=== PATIENT | female | born 1945 | race Caucasian/White ===

== ENCOUNTER 2016-08-08 20:20 | Emergency (ER) | payer MEDICARE, OTHER ==
[~2016-08-08] VITALS: Ht 165.1 cm; Wt 81.8 kg
[~2016-08-08 20:20] MED LIST: ACET-784 PO; ENOX30DI5 SQ; GABA-531 PO; MOM30 PO; PANT40TA25 PO; PERCT PO; QUET300T2 PO; TRAZ150 PO
[2016-08-08] MEDS ORDERED: RIVA20TA PO (20:41)
[2016-08-08] MEDS ORDERED: BENZOTROPINE PO (20:41)
[2016-08-08] MEDS ORDERED: PROP10 PO (20:41)
[2016-08-08 21:39] LABS: BASOPHILS # (AUTO) 0.05 K/uL (0.00-0.20); BASOPHILS % (AUTO) 0.8 % (0.0-2.0); EOSINOPHILS # (AUTO) 0.14 K/uL (0.00-0.70); EOSINOPHILS % (AUTO) 2.04 % (1.0-6.0); HEMATOCRIT 41.5 % (36-46); HEMOGLOBIN 13.4 g/dL (12.0-16.0); LYMPHOCYTES % (AUTO) 29.7 % (22.0-44.0); MEAN CORPUSCULAR HEMOGLOBIN 31.1 pg (26.0-34.0); MEAN CORPUSCULAR HGB CONC 32.4 G/dL (31.0-37.0); MEAN CORPUSCULAR VOLUME 96 fL (80-100); MONOCYTES # (AUTO) 0.4 K/uL (0.1-1.0); MONOCYTES % (AUTO) 5.4 % (2.0-9.0); NEUTROPHILS # (AUTO) 4.2 K/uL (1.8-7.7); PLATELET COUNT (AUTO) 253 K/uL (150-450); RED BLOOD CELL COUNT(AUTO) 4.32 MIL/uL (4.00-5.20); RED CELL DISTRIBUTION WIDTH 15.5 % (11.5-14.5); WHITE BLOOD COUNT (AUTO) 6.8 K/uL (4.5-11.0)
[2016-08-08 21:50] LABS: CALCIUM, TOTAL 9.3 mg/dL (8.8-10.5); CREATININE 1.01 mg/dL (0.60-1.30); POTASSIUM 3.8 mmol/L (3.5-5.1)
[2016-08-08 21:55] LABS: ALBUMIN 4.2 g/dL (3.4-5.0); BILIRUBIN,TOTAL 0.4 mg/dL (0.1-1.0); TOTAL PROTEIN, SERUM 7.4 g/dL (6.4-8.2)
[2016-08-08 21:57] LABS: INR 1.5 (0.9-1.1); PROTHROMBIN TIME 16.1 SEC (9.4-11.6)
[2016-08-08] MEDS ORDERED: ONDANSETRON HCL 4 MG/2 ML VIAL IVP ONE (22:15)
[2016-08-08] MEDS ORDERED: MORPHINE SULFATE 4 MG/ML SYRINGE IVP ONE (22:15)
[2016-08-08 22:42] LABS: ADD UA MICROSCOPIC YES; APPEARANCE,URINE CLOUDY (CLEAR); GLUCOSE, URINE (UA) NEGATIVE (NEGATIVE); KETONES,URINE TRACE mg/dL (NEGATIVE); LEUKOCYTE ESTERASE ,URINE MODERATE (NEGATIVE); OCCULT BLOOD,URINE SMALL (NEGATIVE); PROTEIN,URINE NEGATIVE (NEGATIVE)
[2016-08-08 22:52] LABS: SQUAMOUS EPITHELIAL CELL,UR Few /LPF (None Seen); WBC,URINE 26-50 /HPF (0-5)
[2016-08-09] MEDS ORDERED: CIPROFLOXACIN HCL 250 MG TABLET PO ONE (01:00)
[2016-08-09] MEDS ORDERED: OxyCODONE HCL/ACETAMINOPHEN 5-325 MG TABLET PO ONE (01:00)
[2016-08-09] MEDS ORDERED: CefTRIAXone 1 GM/DEXTROSE 50 ML IV ONE (01:00)
[2016-08-09 01:20] VITALS: BP 134/59
== END 2016-08-09 01:22 | disposition home or self-care (01) ==
LOC: EMS 20:23
DX: N39.0 Urinary tract infection, site not specified (principal); K80.50 Calculus of bile duct without cholangitis or cholecystitis without obstruction; G89.29 Other chronic pain; I10 Essential (primary) hypertension; K21.9 Gastro-esophageal reflux disease without esophagitis; F15.90 Other stimulant use, unspecified, uncomplicated; F19.90 Other psychoactive substance use, unspecified, uncomplicated
CPT/HCPCS: 36415; 76700; 80053; 81001; 83690; 84484; 85025; 85610; 85730; 87077; 87086; 93005; 96365; 96375; 99285; J0696; J2270; J2405

== ENCOUNTER 2016-08-31 13:34 | Emergency (ER) | payer MEDICARE, OTHER ==
[~2016-08-31] VITALS: Ht 167.6 cm; Wt 76.4 kg
[~2016-08-31 13:34] MED LIST changes: +BENZOTROPINE PO; +PROP10 PO; +RIVA20TA PO
[2016-08-31 15:06] LABS: BASOPHILS % (AUTO) 1.5 % (0.0-2.0); EOSINOPHILS % (AUTO) 1.7 % (1.0-6.0); HEMATOCRIT 40.7 % (36-46); HEMOGLOBIN 13.1 g/dL (12.0-16.0); LYMPHOCYTES # (AUTO) 1.9 K/uL (1.0-4.8); LYMPHOCYTES % (AUTO) 25.1 % (22.0-44.0); MEAN CORPUSCULAR HEMOGLOBIN 30.6 pg (26.0-34.0); MEAN CORPUSCULAR HGB CONC 32.1 G/dL (31.0-37.0); MEAN CORPUSCULAR VOLUME 95 fL (80-100); MONOCYTES # (AUTO) 0.6 K/uL (0.1-1.0); MONOCYTES % (AUTO) 7.7 % (2.0-9.0); NEUTROPHILS # (AUTO) 4.9 K/uL (1.8-7.7); PLATELET COUNT (AUTO) 242 K/uL (150-450); RED BLOOD CELL COUNT(AUTO) 4.26 MIL/uL (4.00-5.20); RED CELL DISTRIBUTION WIDTH 14.1 % (11.5-14.5); WHITE BLOOD COUNT (AUTO) 7.6 K/uL (4.5-11.0)
[2016-08-31 15:17] LABS: ANION GAP 8 mmol/L (8-16); CALCIUM, TOTAL 9.1 mg/dL (8.8-10.5); CARBON DIOXIDE 30 mmol/L (22-29); CHLORIDE 102 mmol/L (98-107); CREATININE 1.04 mg/dL (0.60-1.30); GLOMERULAR FILTR. RATE CALC 53 mL/min (>60); POTASSIUM 3.6 mmol/L (3.5-5.1); SODIUM SERUM 140 mmol/L (136-145); UREA NITROGEN, BLOOD 18 mg/dL (7-18)
[2016-08-31 15:20] LABS: ALANINE AMINOTRANSFERASE 27 U/L (12-78); ALBUMIN 4.1 g/dL (3.4-5.0); ASPARTATE AMINOTRANSFERASE 61 U/L (15-37); BILIRUBIN,TOTAL 0.3 mg/dL (0.1-1.0); TOTAL PROTEIN, SERUM 7.3 g/dL (6.4-8.2)
[2016-08-31] MEDS ORDERED: GABA-529 PO (15:44)
[2016-08-31] MEDS ORDERED: BENZ1TAB10 PO (15:44)
[2016-08-31] MEDS ORDERED: TraMADol HCL 50 MG TABLET PO ONE (15:45)
[2016-08-31 16:24] VITALS: BP 135/73
== END 2016-08-31 16:25 | disposition home or self-care (01) ==
LOC: EMS 13:37
DX: F41.9 Anxiety disorder, unspecified (principal); G89.29 Other chronic pain; F31.9 Bipolar disorder, unspecified; K21.9 Gastro-esophageal reflux disease without esophagitis; I10 Essential (primary) hypertension; F15.90 Other stimulant use, unspecified, uncomplicated; F19.90 Other psychoactive substance use, unspecified, uncomplicated
CPT/HCPCS: 36415; 80053; 85025; 99284; G0480

== ENCOUNTER 2016-09-18 06:11 | Emergency (ER) | payer MEDICARE, OTHER ==
[~2016-09-18] VITALS: Ht 172.7 cm; Wt 72.7 kg
[~2016-09-18 06:11] MED LIST changes: +BENZ1TAB10 PO; -BENZOTROPINE PO; +GABA-529 PO; -GABA-531 PO
[2016-09-18] MEDS ORDERED: IBUPROFEN 600 MG TABLET PO ONE (06:45)
[2016-09-18] MEDS ORDERED: HydrOXYzine PAMOATE 50 MG CAPSULE PO ONE (06:45)
[2016-09-18] MEDS ORDERED: LOPERAMIDE HCL 2 MG CAPSULE PO ONE (07:00)
[2016-09-18 07:01] VITALS: BP 155/85
== END 2016-09-18 07:05 | disposition home or self-care (01) ==
LOC: EMS 06:13
DX: M25.551 Pain in right hip (principal); G89.29 Other chronic pain; F41.9 Anxiety disorder, unspecified; G47.00 Insomnia, unspecified; R19.7 Diarrhea, unspecified; F31.9 Bipolar disorder, unspecified; K21.9 Gastro-esophageal reflux disease without esophagitis; F13.90 Sedative, hypnotic, or anxiolytic use, unspecified, uncomplicated; F19.90 Other psychoactive substance use, unspecified, uncomplicated; I10 Essential (primary) hypertension; M19.90 Unspecified osteoarthritis, unspecified site
CPT/HCPCS: 99284

== ENCOUNTER 2016-09-25 13:37 | Emergency (ER) | payer MEDICARE, OTHER ==
[~2016-09-25] VITALS: Ht 172.7 cm; Wt 72.7 kg
[2016-09-25 13:52] LABS: GLUCOSE,POINT OF CARE 129 MG/DL (70-110)
[2016-09-25] MEDS ORDERED: TRAZ-147 PO (13:58)
[2016-09-25] MEDS ORDERED: KETOROLAC TROMETHAMINE 30 MG/ML VIAL IVP ONE (14:00)
[2016-09-25] MEDS ORDERED: LOPERAMIDE HCL 2 MG CAPSULE PO ONE (14:00)
[2016-09-25] MEDS ORDERED: ONDANSETRON HCL 4 MG/2 ML VIAL IVP ONE (14:00)
[2016-09-25] MEDS ORDERED: SODIUM CHLORIDE 0.9% 1,000 ML IV ONE (14:00)
[2016-09-25] MEDS ORDERED: BARIUM SULFATE 0.1% SUSPENSION 450 ML BOTTLE PO ONE (14:00)
[2016-09-25 14:19] LABS: BASOPHILS % (AUTO) 0.3 % (0.0-2.0); EOSINOPHILS % (AUTO) 0.6 % (1.0-6.0); HEMATOCRIT 42.6 % (36-46); HEMOGLOBIN 14.2 g/dL (12.0-16.0); LYMPHOCYTES # (AUTO) 1.9 K/uL (1.0-4.8); LYMPHOCYTES % (AUTO) 20.5 % (22.0-44.0); MEAN CORPUSCULAR HEMOGLOBIN 31.9 pg (26.0-34.0); MEAN CORPUSCULAR HGB CONC 33.4 G/dL (31.0-37.0); MEAN CORPUSCULAR VOLUME 96 fL (80-100); MONOCYTES # (AUTO) 0.3 K/uL (0.1-1.0); MONOCYTES % (AUTO) 2.8 % (2.0-9.0); NEUTROPHILS % (AUTO) 75.8 % (40.0-70.0); PLATELET COUNT (AUTO) 306 K/uL (150-450); RED BLOOD CELL COUNT(AUTO) 4.45 MIL/uL (4.00-5.20); RED CELL DISTRIBUTION WIDTH 14.2 % (11.5-14.5); WHITE BLOOD COUNT (AUTO) 9.2 K/uL (4.5-11.0)
[2016-09-25 14:29] LABS: CALCIUM, TOTAL 9.3 mg/dL (8.8-10.5); CREATININE 0.99 mg/dL (0.60-1.30); POTASSIUM 4.8 mmol/L (3.5-5.1)
[2016-09-25 14:34] LABS: ALBUMIN 4.2 g/dL (3.4-5.0); BILIRUBIN,TOTAL 0.7 mg/dL (0.1-1.0); TOTAL PROTEIN, SERUM 7.8 g/dL (6.4-8.2)
[2016-09-25 14:46] LABS: APPEARANCE,URINE CLEAR (CLEAR); GLUCOSE, URINE (UA) NEGATIVE (NEGATIVE); KETONES,URINE NEGATIVE (NEGATIVE); LEUKOCYTE ESTERASE ,URINE NEGATIVE (NEGATIVE); OCCULT BLOOD,URINE NEGATIVE (NEGATIVE); PROTEIN,URINE NEGATIVE (NEGATIVE)
[2016-09-25 14:47] LABS: ADD UA MICROSCOPIC NO
[2016-09-25] MEDS ORDERED: IOVERSOL 350 MG/ML 100 ML VIAL ONE (15:11)
[2016-09-25] MEDS ORDERED: SODIUM CHLORIDE 0.9% 100 ML ONE (15:11)
[2016-09-25 16:49] VITALS: BP 101/75
== END 2016-09-25 17:00 | disposition home or self-care (01) ==
LOC: EMS 13:39
DX: R10.31 Right lower quadrant pain (principal); F31.9 Bipolar disorder, unspecified; F41.9 Anxiety disorder, unspecified; I10 Essential (primary) hypertension; K21.9 Gastro-esophageal reflux disease without esophagitis; F15.90 Other stimulant use, unspecified, uncomplicated; F19.90 Other psychoactive substance use, unspecified, uncomplicated
CPT/HCPCS: 36415; 51701; 74177; 80053; 81003; 82962; 83690; 85025; 96361; 96374; 96375; 99285; J1885; J2405; J7030; J7050; Q9967

== ENCOUNTER 2016-11-01 13:08 | Emergency (ER) | payer MEDICARE, OTHER ==
[~2016-11-01] VITALS: Ht 175.3 cm; Wt 75.0 kg
[~2016-11-01 13:08] MED LIST changes: +TRAZ-147 PO; -TRAZ150 PO
[2016-11-01 13:50] LABS: BASOPHILS % (AUTO) 0.4 % (0.0-2.0); EOSINOPHILS % (AUTO) 0.9 % (1.0-6.0); HEMATOCRIT 37.4 % (36-46); HEMOGLOBIN 12.9 g/dL (12.0-16.0); LYMPHOCYTES # (AUTO) 1.5 K/uL (1.0-4.8); LYMPHOCYTES % (AUTO) 17.9 % (22.0-44.0); MEAN CORPUSCULAR HEMOGLOBIN 32.6 pg (26.0-34.0); MEAN CORPUSCULAR HGB CONC 34.4 G/dL (31.0-37.0); MEAN CORPUSCULAR VOLUME 95 fL (80-100); MONOCYTES # (AUTO) 0.5 K/uL (0.1-1.0); MONOCYTES % (AUTO) 6.4 % (2.0-9.0); NEUTROPHILS # (AUTO) 6.1 K/uL (1.8-7.7); NEUTROPHILS % (AUTO) 74.4 % (40.0-70.0); PLATELET COUNT (AUTO) 219 K/uL (150-450); RED BLOOD CELL COUNT(AUTO) 3.94 MIL/uL (4.00-5.20); RED CELL DISTRIBUTION WIDTH 14.2 % (11.5-14.5); WHITE BLOOD COUNT (AUTO) 8.2 K/uL (4.5-11.0)
[2016-11-01 14:00] LABS: INR 1.1 (0.9-1.1); PROTHROMBIN TIME 11.2 SEC (9.4-11.6)
[2016-11-01 14:02] LABS: ANION GAP 9 mmol/L (8-16); CALCIUM, TOTAL 9.6 mg/dL (8.8-10.5); CARBON DIOXIDE 26 mmol/L (22-29); CHLORIDE 102 mmol/L (98-107); CREATININE 0.85 mg/dL (0.60-1.30); GLOMERULAR FILTR. RATE CALC > 60 mL/min (>60); POTASSIUM 3.5 mmol/L (3.5-5.1); SODIUM SERUM 137 mmol/L (136-145); UREA NITROGEN, BLOOD 28 mg/dL (7-18)
[2016-11-01 14:08] LABS: ALANINE AMINOTRANSFERASE 17 U/L (12-78); ALBUMIN 3.7 g/dL (3.4-5.0); ASPARTATE AMINOTRANSFERASE 10 U/L (15-37); BILIRUBIN,TOTAL 0.8 mg/dL (0.1-1.0); CREATINE KINASE, TOTAL 20 U/L (26-192)
[2016-11-01 14:11] LABS: B-TYPE NATRIURETIC PEPTIDE 13 pg/mL (0-100)
[2016-11-01 18:03] VITALS: BP 130/83
== END 2016-11-01 18:04 | disposition home or self-care (01) ==
LOC: EMS 13:10
DX: R53.1 Weakness (principal); F41.9 Anxiety disorder, unspecified; I10 Essential (primary) hypertension; K21.9 Gastro-esophageal reflux disease without esophagitis; K58.9 Irritable bowel syndrome, unspecified; F31.9 Bipolar disorder, unspecified; F15.10 Other stimulant abuse, uncomplicated; M19.90 Unspecified osteoarthritis, unspecified site; Z79.01 Long term (current) use of anticoagulants; Z85.41 Personal history of malignant neoplasm of cervix uteri; Z86.73 Personal history of transient ischemic attack (TIA), and cerebral infarction without residual deficits; Z90.49 Acquired absence of other specified parts of digestive tract; Z90.710 Acquired absence of both cervix and uterus
CPT/HCPCS: 70450; 93005; 99285

== ENCOUNTER 2016-11-08 15:59 | Emergency (ER) | payer MEDICARE, OTHER ==
[~2016-11-08] VITALS: Ht 172.7 cm; Wt 72.7 kg
[2016-11-08] MEDS ORDERED: LORazepam 1 MG TABLET PO ONE (17:30)
[2016-11-08 18:44] VITALS: BP 137/81
== END 2016-11-08 18:46 | disposition home or self-care (01) ==
LOC: EMS 16:01
DX: F41.9 Anxiety disorder, unspecified (principal); F31.9 Bipolar disorder, unspecified; K21.9 Gastro-esophageal reflux disease without esophagitis; I10 Essential (primary) hypertension; F19.90 Other psychoactive substance use, unspecified, uncomplicated; F13.90 Sedative, hypnotic, or anxiolytic use, unspecified, uncomplicated
CPT/HCPCS: 99283

== ENCOUNTER 2016-11-10 11:41 | Emergency (ER) | payer MEDICARE, OTHER ==
[~2016-11-10] VITALS: Ht 162.6 cm; Wt 61.4 kg
[~2016-11-10 11:41] MED LIST changes: -ENOX30DI5 SQ; -MOM30 PO; -PERCT PO
[2016-11-10 12:51] LABS: BASOPHILS # (AUTO) 0.07 K/uL (0.00-0.20); BASOPHILS % (AUTO) 0.7 % (0.0-2.0); EOSINOPHILS # (AUTO) 0.06 K/uL (0.00-0.70); EOSINOPHILS % (AUTO) 0.64 % (1.0-6.0); HEMATOCRIT 36.7 % (36-46); HEMOGLOBIN 12.3 g/dL (12.0-16.0); LYMPHOCYTES # (AUTO) 1.7 K/uL (1.0-4.8); LYMPHOCYTES % (AUTO) 18.5 % (22.0-44.0); MEAN CORPUSCULAR HEMOGLOBIN 32.2 pg (26.0-34.0); MEAN CORPUSCULAR HGB CONC 33.6 G/dL (31.0-37.0); MEAN CORPUSCULAR VOLUME 96 fL (80-100); MONOCYTES # (AUTO) 0.5 K/uL (0.1-1.0); MONOCYTES % (AUTO) 6.1 % (2.0-9.0); NEUTROPHILS # (AUTO) 6.6 K/uL (1.8-7.7); PLATELET COUNT (AUTO) 308 K/uL (150-450); RED BLOOD CELL COUNT(AUTO) 3.82 MIL/uL (4.00-5.20); RED CELL DISTRIBUTION WIDTH 13.9 % (11.5-14.5); WHITE BLOOD COUNT (AUTO) 8.9 K/uL (4.5-11.0)
[2016-11-10 12:54] LABS: ANION GAP 12 mmol/L (8-16); CALCIUM, TOTAL 9.2 mg/dL (8.8-10.5); CARBON DIOXIDE 24 mmol/L (22-29); CHLORIDE 105 mmol/L (98-107); CREATININE 0.84 mg/dL (0.60-1.30); GLOMERULAR FILTR. RATE CALC > 60 mL/min (>60); POTASSIUM 3.8 mmol/L (3.5-5.1); SODIUM SERUM 141 mmol/L (136-145); UREA NITROGEN, BLOOD 13 mg/dL (7-18)
[2016-11-10 13:00] LABS: ALANINE AMINOTRANSFERASE 18 U/L (12-78); ALBUMIN 3.4 g/dL (3.4-5.0); ASPARTATE AMINOTRANSFERASE 10 U/L (15-37); BILIRUBIN,TOTAL 0.6 mg/dL (0.1-1.0); TOTAL PROTEIN, SERUM 7.1 g/dL (6.4-8.2)
[2016-11-10 14:21] LABS: APPEARANCE,URINE CLEAR (CLEAR); GLUCOSE, URINE (UA) NEGATIVE (NEGATIVE); KETONES,URINE NEGATIVE (NEGATIVE); LEUKOCYTE ESTERASE ,URINE NEGATIVE (NEGATIVE); OCCULT BLOOD,URINE NEGATIVE (NEGATIVE); PH,URINE 7.5 (5.0-8.0); PROTEIN,URINE NEGATIVE (NEGATIVE)
[2016-11-10 14:22] LABS: ADD UA MICROSCOPIC NO
[2016-11-10 15:16] VITALS: BP 104/72
[2016-11-13] MEDS ORDERED: PENI500T2 PO (13:37)
== END 2016-11-10 15:31 | disposition home or self-care (01) ==
LOC: EMS 11:42
DX: F41.9 Anxiety disorder, unspecified (principal); K02.9 Dental caries, unspecified; R00.1 Bradycardia, unspecified; F31.9 Bipolar disorder, unspecified; K21.9 Gastro-esophageal reflux disease without esophagitis; I10 Essential (primary) hypertension; F19.90 Other psychoactive substance use, unspecified, uncomplicated; F13.90 Sedative, hypnotic, or anxiolytic use, unspecified, uncomplicated
CPT/HCPCS: 36415; 80053; 80307; 81003; 85025; 99284; G0480

== ENCOUNTER 2016-11-23 08:14 | Emergency (ER) | payer MEDICARE, OTHER ==
[~2016-11-23] VITALS: Ht 172.7 cm; Wt 69.5 kg
[~2016-11-23 08:14] MED LIST changes: -ACET-784 PO; -BENZ1TAB10 PO; -GABA-529 PO; +PENI500T2 PO; -QUET300T2 PO; -TRAZ-147 PO
[2016-11-23] MEDS ORDERED: ONDANSETRON HCL 4 MG/2 ML VIAL IVP ONE (09:15)
[2016-11-23 09:20] LABS: BASOPHILS # (AUTO) 0.03 K/uL (0.00-0.20); BASOPHILS % (AUTO) 0.4 % (0.0-2.0); EOSINOPHILS % (AUTO) 0.05 % (1.0-6.0); HEMATOCRIT 39.5 % (36-46); HEMOGLOBIN 13.4 g/dL (12.0-16.0); LYMPHOCYTES % (AUTO) 10.4 % (22.0-44.0); MEAN CORPUSCULAR HEMOGLOBIN 32.6 pg (26.0-34.0); MEAN CORPUSCULAR HGB CONC 33.9 G/dL (31.0-37.0); MEAN CORPUSCULAR VOLUME 96 fL (80-100); MONOCYTES # (AUTO) 0.1 K/uL (0.1-1.0); MONOCYTES % (AUTO) 0.6 % (2.0-9.0); NEUTROPHILS # (AUTO) 8.2 K/uL (1.8-7.7); PLATELET COUNT (AUTO) 300 K/uL (150-450); RED CELL DISTRIBUTION WIDTH 13.9 % (11.5-14.5); WHITE BLOOD COUNT (AUTO) 9.2 K/uL (4.5-11.0)
[2016-11-23 09:21] LABS: NEUTROPHILS % (AUTO) 88.7 % (40.0-70.0)
[2016-11-23 09:30] LABS: ANION GAP 13 mmol/L (8-16); CALCIUM, TOTAL 9.4 mg/dL (8.8-10.5); CARBON DIOXIDE 27 mmol/L (22-29); CHLORIDE 102 mmol/L (98-107); CREATININE 0.75 mg/dL (0.60-1.30); GLOMERULAR FILTR. RATE CALC > 60 mL/min (>60); POTASSIUM 4.5 mmol/L (3.5-5.1); SODIUM SERUM 142 mmol/L (136-145); UREA NITROGEN, BLOOD 18 mg/dL (7-18)
[2016-11-23 09:36] LABS: ALANINE AMINOTRANSFERASE 13 U/L (12-78); ALBUMIN 3.7 g/dL (3.4-5.0); ASPARTATE AMINOTRANSFERASE 19 U/L (15-37); BILIRUBIN,TOTAL 0.6 mg/dL (0.1-1.0); TOTAL PROTEIN, SERUM 7.5 g/dL (6.4-8.2)
[2016-11-23 10:13] LABS: GLUCOSE, URINE (UA) NEGATIVE (NEGATIVE); KETONES,URINE 15 mg/dL (NEGATIVE); LEUKOCYTE ESTERASE ,URINE MODERATE (NEGATIVE); OCCULT BLOOD,URINE NEGATIVE (NEGATIVE); PROTEIN,URINE POS 1+ (NEGATIVE)
[2016-11-23 10:17] LABS: APPEARANCE,URINE SLIGHTLY CLOUDY (CLEAR)
[2016-11-23 10:25] LABS: RBC,URINE None Seen /HPF (0-2); SQUAMOUS EPITHELIAL CELL,UR Many /LPF (None Seen)
[2016-11-23] MEDS ORDERED: PROMETHAZINE HCL 25 MG/ML VIAL IM ONE (12:15)
[2016-11-23] MEDS ORDERED: MORPHINE SULFATE 2 MG/ML SYRINGE IVP ONE (12:15)
[2016-11-23] MEDS ORDERED: LORazepam 2 MG/ML VIAL IVP ONE (13:30)
[2016-11-23] MEDS ORDERED: CefTRIAXone 1 GM/DEXTROSE 50 ML IV ONE (13:30)
[2016-11-23 14:42] VITALS: BP 140/87
[2016-11-25] MEDS ORDERED: LORA1TAB3 PO (18:34)
[2016-11-25] MEDS ORDERED: TRAZ-147 PO (18:34)
== END 2016-11-23 15:11 | disposition home or self-care (01) ==
LOC: EMS 08:17
DX: N39.0 Urinary tract infection, site not specified (principal); I10 Essential (primary) hypertension; K21.9 Gastro-esophageal reflux disease without esophagitis; M19.90 Unspecified osteoarthritis, unspecified site; Z79.899 Other long term (current) drug therapy
CPT/HCPCS: 36415; 80053; 81001; 85025; 87086; 96365; 96372; 96375; 99284; J0696; J2060; J2270; J2405; J2550

== ENCOUNTER 2016-12-30 09:13 | Emergency (ER) | payer MEDICARE, OTHER ==
[~2016-12-30] VITALS: Ht 172.7 cm; Wt 69.3 kg
[~2016-12-30 09:13] MED LIST changes: +APIX2.5T PO; +APIX5TAB PO; +CIPR-278 PO; +LORA1TAB3 PO; +METR500 PO; +PANT40I IV; -PENI500T2 PO; -PROP10 PO; +PROP10TA73 PO; +TRAZ-147 PO
[2016-12-30] MEDS ORDERED: ACETAMINOPHEN 1000 MG/ISO-OSM 100 ML IV ONE (09:45)
[2016-12-30 10:08] LABS: BASOPHILS % (AUTO) 1.2 % (0.0-2.0); EOSINOPHILS % (AUTO) 2.9 % (1.0-6.0); HEMATOCRIT 38.1 % (36-46); HEMOGLOBIN 12.7 g/dL (12.0-16.0); LYMPHOCYTES # (AUTO) 2.9 K/uL (1.0-4.8); LYMPHOCYTES % (AUTO) 31.9 % (22.0-44.0); MEAN CORPUSCULAR HEMOGLOBIN 32.2 pg (26.0-34.0); MEAN CORPUSCULAR HGB CONC 33.2 G/dL (31.0-37.0); MEAN CORPUSCULAR VOLUME 97 fL (80-100); MONOCYTES # (AUTO) 0.8 K/uL (0.1-1.0); MONOCYTES % (AUTO) 8.2 % (2.0-9.0); NEUTROPHILS # (AUTO) 5.1 K/uL (1.8-7.7); NEUTROPHILS % (AUTO) 55.8 % (40.0-70.0); PLATELET COUNT (AUTO) 624 K/uL (150-450); RED BLOOD CELL COUNT(AUTO) 3.92 MIL/uL (4.00-5.20); RED CELL DISTRIBUTION WIDTH 19.3 % (11.5-14.5); WHITE BLOOD COUNT (AUTO) 9.1 K/uL (4.5-11.0)
[2016-12-30 10:09] LABS: RBC MORPHOLOGY COMMENT ABNORMAL RBC MORPH
[2016-12-30 10:14] LABS: ANION GAP 3 mmol/L (8-16); CALCIUM, TOTAL 9.2 mg/dL (8.8-10.5); CARBON DIOXIDE 32 mmol/L (22-29); CHLORIDE 100 mmol/L (98-107); CREATININE 0.76 mg/dL (0.60-1.30); GLOMERULAR FILTR. RATE CALC > 60 mL/min (>60); POTASSIUM 4.1 mmol/L (3.5-5.1); SODIUM SERUM 135 mmol/L (136-145); UREA NITROGEN, BLOOD 16 mg/dL (7-18)
[2016-12-30] MEDS ORDERED: LORazepam 2 MG/ML VIAL IVP ONE (10:30)
[2016-12-30] MEDS ORDERED: DIATRIZOATE MEGLU/SOD 660/100 MG/ML 120 ML BOTTLE ONE (11:21)
[2016-12-30] MEDS ORDERED: FentaNYL CITRATE-PF 100 MCG/2 ML VIAL ONE (12:05)
[2016-12-30] MEDS ORDERED: MIDAZOLAM HCL 2 MG/2 ML VIAL ONE ×2 (12:05→12:17)
[2016-12-30] MEDS ORDERED: FentaNYL CITRATE-PF 100 MCG/2 ML VIAL IVP ONE (12:19)
[2016-12-30] MEDS ORDERED: MIDAZOLAM HCL 2 MG/2 ML VIAL IVP ONE (12:19)
[2016-12-30 14:45] VITALS: BP 128/78
== END 2016-12-30 15:02 | disposition home or self-care (01) ==
LOC: EMS 09:16
DX: K94.13 Enterostomy malfunction (principal); I10 Essential (primary) hypertension; K21.9 Gastro-esophageal reflux disease without esophagitis; F15.90 Other stimulant use, unspecified, uncomplicated; F19.90 Other psychoactive substance use, unspecified, uncomplicated
CPT/HCPCS: 36245; 36415; 49440; 74000; 80048; 85025; 86850; 86900; 86901; 96365; 96375; 99285; C1769; J0131; J2060; J2250; J3010; Q9963

== ENCOUNTER 2017-01-28 17:46 | Emergency (ER) | payer MEDICARE, OTHER ==
[~2017-01-28] VITALS: Ht 172.7 cm; Wt 70.5 kg
[2017-01-28] MEDS ORDERED: BACL10TA PO (18:52)
[2017-01-28] MEDS ORDERED: GABA-531 PO (18:52)
[2017-01-28] MEDS ORDERED: FAMO20 PO (18:52)
[2017-01-28] MEDS ORDERED: BISM262O25 PO (18:52)
[2017-01-28] MEDS ORDERED: [UNRECOGNIZED DRUG - OTHER] PO (18:52)
[2017-01-28 18:59] LABS: BASOPHILS % (AUTO) 0.7 % (0.0-2.0); EOSINOPHILS % (AUTO) 2.6 % (1.0-6.0); HEMATOCRIT 35.8 % (36-46); LYMPHOCYTES # (AUTO) 4.5 K/uL (1.0-4.8); LYMPHOCYTES % (AUTO) 53.8 % (22.0-44.0); MEAN CORPUSCULAR HEMOGLOBIN 31.8 pg (26.0-34.0); MEAN CORPUSCULAR HGB CONC 33.6 G/dL (31.0-37.0); MEAN CORPUSCULAR VOLUME 95 fL (80-100); MONOCYTES # (AUTO) 0.8 K/uL (0.1-1.0); NEUTROPHILS # (AUTO) 2.8 K/uL (1.8-7.7); NEUTROPHILS % (AUTO) 32.9 % (40.0-70.0); PLATELET COUNT (AUTO) 545 K/uL (150-450); RED BLOOD CELL COUNT(AUTO) 3.78 MIL/uL (4.00-5.20); RED CELL DISTRIBUTION WIDTH 16.6 % (11.5-14.5)
[2017-01-28 19:16] LABS: ANION GAP 5 mmol/L (8-16); CALCIUM, TOTAL 9.1 mg/dL (8.8-10.5); CARBON DIOXIDE 29 mmol/L (22-29); CHLORIDE 102 mmol/L (98-107); CREATININE 0.72 mg/dL (0.60-1.30); GLOMERULAR FILTR. RATE CALC > 60 mL/min (>60); GLUCOSE,RANDOM 97 mg/dL (70-110); SODIUM SERUM 136 mmol/L (136-145); UREA NITROGEN, BLOOD 15 mg/dL (7-18)
[2017-01-28 19:24] LABS: APPEARANCE,URINE CLEAR (CLEAR); BILIRUBIN,URINE NEGATIVE (NEGATIVE); GLUCOSE, URINE (UA) NEGATIVE (NEGATIVE); KETONES,URINE NEGATIVE (NEGATIVE); LEUKOCYTE ESTERASE ,URINE NEGATIVE (NEGATIVE); NITRATE,URINE NEGATIVE (NEGATIVE); OCCULT BLOOD,URINE NEGATIVE (NEGATIVE); PROTEIN,URINE NEGATIVE (NEGATIVE); UROBILINOGEN,URINE 0.2 mg/dL (<=1.0)
[2017-01-28 19:30] LABS: ALANINE AMINOTRANSFERASE 33 U/L (12-78); ALBUMIN 3.1 g/dL (3.4-5.0); ALKALINE PHOSPHATASE 77 U/L (46-116); AMYLASE 85 U/L (25-115); ASPARTATE AMINOTRANSFERASE 29 U/L (15-37); BILIRUBIN,TOTAL 0.2 mg/dL (0.1-1.0); LIPASE 81 U/L (73-393); TOTAL PROTEIN, SERUM 6.4 g/dL (6.4-8.2)
[2017-01-28] MEDS ORDERED: LORazepam 2 MG/ML VIAL IM ONE (20:30)
[2017-01-28 20:44] VITALS: BP 132/76
== END 2017-01-28 21:03 | disposition home or self-care (01) ==
LOC: EMS 17:50
DX: R10.84 Generalized abdominal pain (principal); F41.9 Anxiety disorder, unspecified; F15.90 Other stimulant use, unspecified, uncomplicated; F13.90 Sedative, hypnotic, or anxiolytic use, unspecified, uncomplicated; M19.90 Unspecified osteoarthritis, unspecified site; F31.9 Bipolar disorder, unspecified; K21.9 Gastro-esophageal reflux disease without esophagitis; I10 Essential (primary) hypertension; Z90.89 Acquired absence of other organs; Z90.710 Acquired absence of both cervix and uterus
CPT/HCPCS: 36415; 80053; 81003; 82150; 83690; 85025; 96372; 99284; J2060

== ENCOUNTER 2017-05-25 09:38 | Emergency (ER) | payer MEDICARE, OTHER ==
[~2017-05-25] VITALS: Ht 162.6 cm; Wt 52.3 kg
[~2017-05-25 09:38] MED LIST changes: -APIX2.5T PO; +BACL10TA PO; +BISM262O25 PO; -CIPR-278 PO; +FAMO20 PO; +GABA-531 PO; -PANT40I IV; -RIVA20TA PO; +[UNRECOGNIZED DRUG - OTHER] PO
[2017-05-25 11:19] LABS: BASOPHILS % (AUTO) 1.2 % (0.0-2.0); EOSINOPHILS % (AUTO) 4.4 % (1.0-6.0); HEMATOCRIT 36.4 % (36-46); HEMOGLOBIN 12.3 g/dL (12.0-16.0); LYMPHOCYTES # (AUTO) 3.2 K/uL (1.0-4.8); MEAN CORPUSCULAR HEMOGLOBIN 32.1 pg (26.0-34.0); MEAN CORPUSCULAR HGB CONC 33.9 G/dL (31.0-37.0); MEAN CORPUSCULAR VOLUME 95 fL (80-100); MONOCYTES # (AUTO) 0.5 K/uL (0.1-1.0); MONOCYTES % (AUTO) 8.6 % (2.0-9.0); NEUTROPHILS # (AUTO) 2.2 K/uL (1.8-7.7); NEUTROPHILS % (AUTO) 34.8 % (40.0-70.0); PLATELET COUNT (AUTO) 455 K/uL (150-450); RED BLOOD CELL COUNT(AUTO) 3.84 MIL/uL (4.00-5.20); RED CELL DISTRIBUTION WIDTH 15.6 % (11.5-14.5)
[2017-05-25 11:24] LABS: ANION GAP 10 mmol/L (8-16); CALCIUM, TOTAL 9.3 mg/dL (8.8-10.5); CARBON DIOXIDE 29 mmol/L (22-29); CHLORIDE 102 mmol/L (98-107); CREATININE 0.84 mg/dL (0.60-1.30); GLOMERULAR FILTR. RATE CALC > 60 mL/min (>60); GLUCOSE,RANDOM 117 mg/dL (70-110); POTASSIUM 4.1 mmol/L (3.5-5.1); SODIUM SERUM 141 mmol/L (136-145); UREA NITROGEN, BLOOD 18 mg/dL (7-18)
[2017-05-25] MEDS: LORazepam 2 MG/ML VIAL IVP ONE ×2 (11:28→15:03)
[2017-05-25 11:31] LABS: ALANINE AMINOTRANSFERASE 25 U/L (12-78); ALBUMIN 3.4 g/dL (3.4-5.0); ALKALINE PHOSPHATASE 146 U/L (46-116); ASPARTATE AMINOTRANSFERASE 20 U/L (15-37); BILIRUBIN,TOTAL 0.4 mg/dL (0.1-1.0); TOTAL PROTEIN, SERUM 6.8 g/dL (6.4-8.2)
[2017-05-25] MEDS ORDERED: LORazepam 1 MG TABLET ONE (14:59)
[2017-05-25 15:02] VITALS: BP 108/55
== END 2017-05-25 15:58 | disposition home or self-care (01) ==
LOC: EMS 09:41
DX: K94.23 Gastrostomy malfunction (principal); F41.9 Anxiety disorder, unspecified
CPT/HCPCS: 36415; 80053; 85025; 96374; 99284; J2060

== ENCOUNTER 2017-08-03 16:03 | Emergency (ER) | payer MEDICARE, OTHER ==
[~2017-08-03] VITALS: Ht 172.7 cm; Wt 70.5 kg
[2017-08-03] MEDS ORDERED: KETOROLAC TROMETHAMINE 30 MG/ML VIAL IVP ONE (18:30)
[2017-08-03] MEDS ORDERED: ONDANSETRON HCL 4 MG/2 ML VIAL IVP ONE (18:30)
[2017-08-03 18:46] LABS: BASOPHILS % (AUTO) 1.5 % (0.0-2.0); EOSINOPHILS % (AUTO) 2.9 % (1.0-6.0); HEMATOCRIT 36.6 % (36-46); HEMOGLOBIN 12.6 g/dL (12.0-16.0); LYMPHOCYTES # (AUTO) 3.2 K/uL (1.0-4.8); LYMPHOCYTES % (AUTO) 41.3 % (22.0-44.0); MEAN CORPUSCULAR HGB CONC 34.5 G/dL (31.0-37.0); MEAN CORPUSCULAR VOLUME 96 fL (80-100); MONOCYTES # (AUTO) 0.6 K/uL (0.1-1.0); MONOCYTES % (AUTO) 7.5 % (2.0-9.0); NEUTROPHILS # (AUTO) 3.7 K/uL (1.8-7.7); NEUTROPHILS % (AUTO) 46.8 % (40.0-70.0); PLATELET COUNT (AUTO) 481 K/uL (150-450); RED BLOOD CELL COUNT(AUTO) 3.83 MIL/uL (4.00-5.20); RED CELL DISTRIBUTION WIDTH 15.2 % (11.5-14.5)
[2017-08-03 19:10] LABS: ANION GAP 4 mmol/L (8-16); CARBON DIOXIDE 30 mmol/L (22-29); CHLORIDE 105 mmol/L (98-107); GLOMERULAR FILTR. RATE CALC > 60 mL/min (>60); GLUCOSE,RANDOM 104 mg/dL (70-110); POTASSIUM 3.9 mmol/L (3.5-5.1); SODIUM SERUM 139 mmol/L (136-145); UREA NITROGEN, BLOOD 16 mg/dL (7-18)
[2017-08-03 19:20] LABS: ALANINE AMINOTRANSFERASE 22 U/L (12-78); ALBUMIN 3.5 g/dL (3.4-5.0); ALKALINE PHOSPHATASE 133 U/L (46-116); ASPARTATE AMINOTRANSFERASE 15 U/L (15-37); BILIRUBIN,TOTAL 0.4 mg/dL (0.1-1.0); TOTAL PROTEIN, SERUM 6.9 g/dL (6.4-8.2)
[2017-08-03 19:54] LABS: APPEARANCE,URINE CLEAR (CLEAR); BILIRUBIN,URINE NEGATIVE (NEGATIVE); GLUCOSE, URINE (UA) NEGATIVE (NEGATIVE); KETONES,URINE NEGATIVE (NEGATIVE); LEUKOCYTE ESTERASE ,URINE NEGATIVE (NEGATIVE); NITRATE,URINE NEGATIVE (NEGATIVE); OCCULT BLOOD,URINE NEGATIVE (NEGATIVE); PH,URINE 6.5 (5.0-8.0); PROTEIN,URINE NEGATIVE (NEGATIVE); UROBILINOGEN,URINE 0.2 mg/dL (<=1.0)
[2017-08-03] MEDS ORDERED: FentaNYL CITRATE-PF 100 MCG/2 ML VIAL IVP ONE (20:15)
[2017-08-03 22:25] VITALS: BP 144/76
== END 2017-08-03 23:00 | disposition home or self-care (01) ==
LOC: EMS 16:07
DX: R10.84 Generalized abdominal pain (principal); K21.9 Gastro-esophageal reflux disease without esophagitis; I10 Essential (primary) hypertension; F19.90 Other psychoactive substance use, unspecified, uncomplicated; F13.90 Sedative, hypnotic, or anxiolytic use, unspecified, uncomplicated
CPT/HCPCS: 36415; 74176; 80053; 81003; 85025; 96374; 96375; 99285; J1885; J2405; J3010

== ENCOUNTER 2017-08-19 15:05 | Emergency (ER) | payer MEDICARE, OTHER ==
[~2017-08-19] VITALS: Ht 172.7 cm; Wt 72.7 kg
[~2017-08-19 15:05] MED LIST changes: -METR500 PO
[2017-08-19 16:12] LABS: BASOPHILS % (AUTO) 1.3 % (0.0-2.0); EOSINOPHILS % (AUTO) 0.9 % (1.0-6.0); HEMATOCRIT 34.5 % (36-46); HEMOGLOBIN 11.8 g/dL (12.0-16.0); LYMPHOCYTES # (AUTO) 2.9 K/uL (1.0-4.8); LYMPHOCYTES % (AUTO) 46.7 % (22.0-44.0); MEAN CORPUSCULAR HEMOGLOBIN 32.7 pg (26.0-34.0); MEAN CORPUSCULAR HGB CONC 34.3 G/dL (31.0-37.0); MEAN CORPUSCULAR VOLUME 95 fL (80-100); MONOCYTES # (AUTO) 0.5 K/uL (0.1-1.0); MONOCYTES % (AUTO) 8.7 % (2.0-9.0); NEUTROPHILS # (AUTO) 2.6 K/uL (1.8-7.7); NEUTROPHILS % (AUTO) 42.4 % (40.0-70.0); PLATELET COUNT (AUTO) 428 K/uL (150-450); RED BLOOD CELL COUNT(AUTO) 3.62 MIL/uL (4.00-5.20); RED CELL DISTRIBUTION WIDTH 14.9 % (11.5-14.5)
[2017-08-19] MEDS ORDERED: LORazepam 2 MG TABLET PO ONE (16:15)
[2017-08-19 16:21] LABS: ANION GAP 8 mmol/L (8-16); CALCIUM, TOTAL 8.5 mg/dL (8.8-10.5); CARBON DIOXIDE 25 mmol/L (22-29); CHLORIDE 104 mmol/L (98-107); CREATININE 0.92 mg/dL (0.60-1.30); GLOMERULAR FILTR. RATE CALC 60 mL/min (>60); GLUCOSE,RANDOM 109 mg/dL (70-110); POTASSIUM 3.7 mmol/L (3.5-5.1); SODIUM SERUM 137 mmol/L (136-145); UREA NITROGEN, BLOOD 19 mg/dL (7-18)
[2017-08-19 16:27] LABS: ALANINE AMINOTRANSFERASE 19 U/L (12-78); ALBUMIN 3.9 g/dL (3.4-5.0); ALKALINE PHOSPHATASE 124 U/L (46-116); ASPARTATE AMINOTRANSFERASE 13 U/L (15-37); BILIRUBIN,TOTAL 0.4 mg/dL (0.1-1.0); TOTAL PROTEIN, SERUM 7.1 g/dL (6.4-8.2)
[2017-08-19 17:25] VITALS: BP 139/84
== END 2017-08-19 17:31 | disposition home or self-care (01) ==
LOC: EMS 15:07
DX: F41.9 Anxiety disorder, unspecified (principal); F31.9 Bipolar disorder, unspecified; K21.9 Gastro-esophageal reflux disease without esophagitis; I10 Essential (primary) hypertension; F19.90 Other psychoactive substance use, unspecified, uncomplicated; F13.20 Sedative, hypnotic or anxiolytic dependence, uncomplicated; Z76.0 Encounter for issue of repeat prescription
CPT/HCPCS: 36415; 80053; 84484; 85025; 93005; 99285; G0480

== ENCOUNTER 2017-08-23 14:14 | Emergency (ER) | payer MEDICARE, OTHER ==
[~2017-08-23] VITALS: Ht 172.7 cm; Wt 72.7 kg
[2017-08-23] MEDS ORDERED: ONDANSETRON HCL 4 MG/2 ML VIAL IVP ONE (14:30)
[2017-08-23] MEDS ORDERED: KETOROLAC TROMETHAMINE 30 MG/ML VIAL IVP ONE (14:30)
[2017-08-23 15:29] LABS: HEMATOCRIT 34.4 % (36-46); HEMOGLOBIN 11.7 g/dL (12.0-16.0); LYMPHOCYTES % (AUTO) 41.9 % (22.0-44.0); MEAN CORPUSCULAR HEMOGLOBIN 32.7 pg (26.0-34.0); MEAN CORPUSCULAR HGB CONC 34.1 G/dL (31.0-37.0); MEAN CORPUSCULAR VOLUME 96 fL (80-100); MONOCYTES # (AUTO) 0.6 K/uL (0.1-1.0); MONOCYTES % (AUTO) 8.4 % (2.0-9.0); NEUTROPHILS # (AUTO) 3.3 K/uL (1.8-7.7); NEUTROPHILS % (AUTO) 45.7 % (40.0-70.0); PLATELET COUNT (AUTO) 365 K/uL (150-450); RED BLOOD CELL COUNT(AUTO) 3.59 MIL/uL (4.00-5.20); RED CELL DISTRIBUTION WIDTH 15.3 % (11.5-14.5)
[2017-08-23 15:39] LABS: ANION GAP 7 mmol/L (8-16); CALCIUM, TOTAL 8.2 mg/dL (8.8-10.5); CARBON DIOXIDE 28 mmol/L (22-29); CHLORIDE 108 mmol/L (98-107); CREATININE 0.78 mg/dL (0.60-1.30); GLOMERULAR FILTR. RATE CALC > 60 mL/min (>60); GLUCOSE,RANDOM 111 mg/dL (70-110); POTASSIUM 3.4 mmol/L (3.5-5.1); SODIUM SERUM 143 mmol/L (136-145); UREA NITROGEN, BLOOD 14 mg/dL (7-18)
[2017-08-23 15:45] LABS: ALANINE AMINOTRANSFERASE 19 U/L (12-78); ALBUMIN 3.4 g/dL (3.4-5.0); ALKALINE PHOSPHATASE 116 U/L (46-116); ASPARTATE AMINOTRANSFERASE 13 U/L (15-37); BILIRUBIN,TOTAL 0.3 mg/dL (0.1-1.0); LIPASE 152 U/L (73-393); TOTAL PROTEIN, SERUM 6.4 g/dL (6.4-8.2)
[2017-08-23 15:47] LABS: B-TYPE NATRIURETIC PEPTIDE 107 pg/mL (0-100)
[2017-08-23 16:04] LABS: APPEARANCE,URINE CLEAR (CLEAR); BILIRUBIN,URINE NEGATIVE (NEGATIVE); GLUCOSE, URINE (UA) NEGATIVE (NEGATIVE); KETONES,URINE NEGATIVE (NEGATIVE); LEUKOCYTE ESTERASE ,URINE NEGATIVE (NEGATIVE); NITRATE,URINE NEGATIVE (NEGATIVE); OCCULT BLOOD,URINE NEGATIVE (NEGATIVE); PROTEIN,URINE NEGATIVE (NEGATIVE); UROBILINOGEN,URINE 0.2 mg/dL (<=1.0)
[2017-08-23] MEDS ORDERED: PB/HYOSCY/ATR/SCOP/LIDO/MAALOX 55 ML BOTTLE PO ONE (16:15)
[2017-08-23] MEDS ORDERED: TraMADol HCL 50 MG TABLET PO ONE (18:30)
[2017-08-23 19:08] VITALS: BP 164/80
== END 2017-08-23 19:10 | disposition home or self-care (01) ==
LOC: EMS 14:18
DX: K21.9 Gastro-esophageal reflux disease without esophagitis (principal); I10 Essential (primary) hypertension; F19.90 Other psychoactive substance use, unspecified, uncomplicated; F13.90 Sedative, hypnotic, or anxiolytic use, unspecified, uncomplicated
CPT/HCPCS: 36415; 80053; 81003; 83690; 83880; 85025; 96374; 96375; 99284; J1885; J2405

== ENCOUNTER 2017-08-27 15:27 | Inpatient (IN) | payer MEDICARE, MEDICAID ==
[~2017-08-27] VITALS: Ht 172.7 cm; Wt 66.7 kg
[~2017-08-27 15:27] MED LIST changes: -BACL10TA PO; -PANT40TA25 PO
[2017-08-27 16:45] LABS: BASOPHILS % (AUTO) 1.1 % (0.0-2.0); EOSINOPHILS % (AUTO) 1.6 % (1.0-6.0); HEMATOCRIT 35.6 % (36-46); HEMOGLOBIN 12.2 g/dL (12.0-16.0); LYMPHOCYTES # (AUTO) 2.3 K/uL (1.0-4.8); MEAN CORPUSCULAR HEMOGLOBIN 32.5 pg (26.0-34.0); MEAN CORPUSCULAR HGB CONC 34.2 G/dL (31.0-37.0); MEAN CORPUSCULAR VOLUME 95 fL (80-100); MONOCYTES # (AUTO) 0.5 K/uL (0.1-1.0); MONOCYTES % (AUTO) 6.4 % (2.0-9.0); NEUTROPHILS # (AUTO) 5.2 K/uL (1.8-7.7); NEUTROPHILS % (AUTO) 62.9 % (40.0-70.0); PLATELET COUNT (AUTO) 385 K/uL (150-450); RED BLOOD CELL COUNT(AUTO) 3.75 MIL/uL (4.00-5.20); RED CELL DISTRIBUTION WIDTH 15.3 % (11.5-14.5)
[2017-08-27 16:56] LABS: ANION GAP 11 mmol/L (8-16); CALCIUM, TOTAL 8.9 mg/dL (8.8-10.5); CARBON DIOXIDE 24 mmol/L (22-29); CHLORIDE 107 mmol/L (98-107); CREATININE 0.97 mg/dL (0.60-1.30); GLOMERULAR FILTR. RATE CALC 57 mL/min (>60); GLUCOSE,RANDOM 117 mg/dL (70-110); POTASSIUM 3.8 mmol/L (3.5-5.1); SODIUM SERUM 142 mmol/L (136-145); UREA NITROGEN, BLOOD 15 mg/dL (7-18)
[2017-08-27 17:03] LABS: ALANINE AMINOTRANSFERASE 19 U/L (12-78); ALBUMIN 3.6 g/dL (3.4-5.0); ALKALINE PHOSPHATASE 127 U/L (46-116); ASPARTATE AMINOTRANSFERASE 12 U/L (15-37); BILIRUBIN,TOTAL 0.4 mg/dL (0.1-1.0)
[2017-08-27] MEDS ORDERED: LORazepam 0.5 MG TABLET PO ONE (18:00)
[2017-08-27 18:03] LABS: AMPHET/METH SCREEN,URINE NEGATIVE (NEGATIVE); BARBITURATE SCREEN, URINE POSITIVE (NEGATIVE); BENZODIAZEPINES SCREEN,URINE NEGATIVE (NEGATIVE); CANNABINOID SCREEN,URINE NEGATIVE (NEGATIVE); COCAINE SCREEN,URINE NEGATIVE (NEGATIVE); METHADONE SCREEN, URINE NEGATIVE (NEGATIVE); OPIATE SCREEN,URINE NEGATIVE (NEGATIVE); PHENCYCLIDINE SCREEN,URINE NEGATIVE (NEGATIVE)
[2017-08-27] MEDS ORDERED: HALOPERIDOL 5 MG TABLET PO PRN (21:30)
[2017-08-27] MEDS ORDERED: ACETAMINOPHEN 325 MG TABLET PO ONE (23:00)
[2017-08-27] MEDS ORDERED: DiphenhydrAMINE HCL 25 MG CAPSULE PO ONE (23:00)
[2017-08-27] MEDS ORDERED: HYDROCODONE/ACETAMINOPHEN 5-325 MG TABLET PO ONE (23:00)
[2017-08-28] MEDS: ZOLPIDEM TARTRATE 10 MG TABLET PO PRN ×2 (01:29→20:07)
[2017-08-28 01:34] VITALS: BP 163/71
[2017-08-28 09:15] LABS: HEMOGLOBIN A1C 6.1 % (4.5-6.2)
[2017-08-28] MEDS: APIXABAN 5 MG TABLET PO SCH ×2 (09:21→16:05)
[2017-08-28] MEDS: PANTOPRAZOLE SODIUM 40 MG DR TABLET PO SCH ×2 (09:21→16:05)
[2017-08-28] MEDS: FAMOTIDINE 20 MG TABLET PO SCH ×2 (09:21→16:05)
[2017-08-28] MEDS: AmLODIPine BESYLATE 5 MG TABLET PO SCH (09:22)
[2017-08-28 09:25] VITALS: BP 144/92
[2017-08-28 09:26] LABS: CHOL/HDL RATIO 2.3 (3.9-5.7); CHOLESTEROL 208 mg/dL (131-200); CREATINE KINASE MB 1.7 ng/mL (0-5); CREATINE KINASE, TOTAL 89 U/L (26-192); FREE T4 (FREE THYROXINE) 0.94 ng/dL (0.76-1.46); HDL CHOLESTEROL 89 mg/dL (40-60); LDL CHOL (CALC.) 104 mg/dL (0-130); TRIGLYCERIDES 76 mg/dL (15-150)
[2017-08-28] MEDS: IBUPROFEN 600 MG TABLET PO PRN ×2 (09:26→16:07)
[2017-08-28] MEDS ORDERED: LOPERAMIDE HCL 2 MG CAPSULE PO PRN (10:30)
[2017-08-28] MEDS: LORazepam 0.5 MG TABLET PO SCH ×2 (12:11→16:05)
[2017-08-28 12:30] LABS: FOLATE SERUM 21.1 ng/mL (5.4-)
[2017-08-29 02:40] VITALS: BP 139/82
[2017-08-29] MEDS: IBUPROFEN 600 MG TABLET PO PRN (02:42)
[2017-08-29] MEDS: LORazepam 0.5 MG TABLET PO SCH ×3 (08:13→16:01)
[2017-08-29] MEDS: AmLODIPine BESYLATE 5 MG TABLET PO SCH (08:13)
[2017-08-29] MEDS: APIXABAN 5 MG TABLET PO SCH ×2 (08:13→16:01)
[2017-08-29] MEDS: FAMOTIDINE 20 MG TABLET PO SCH ×2 (08:13→16:01)
[2017-08-29] MEDS: PANTOPRAZOLE SODIUM 40 MG DR TABLET PO SCH ×2 (08:14→16:01)
[2017-08-29 08:30] VITALS: BP 152/89
[2017-08-29] MEDS: BENZOCAINE 10% 7 GM GEL TP PRN (13:45)
[2017-08-29 19:22] VITALS: BP 154/95
[2017-08-29] MEDS: ZOLPIDEM TARTRATE 10 MG TABLET PO PRN (20:04)
[2017-08-30 01:06] VITALS: BP 161/94
[2017-08-30] MEDS: IBUPROFEN 600 MG TABLET PO PRN ×2 (01:06→07:55)
[2017-08-30 07:55] VITALS: BP 161/90
[2017-08-30] MEDS: FAMOTIDINE 20 MG TABLET PO SCH ×2 (07:55→16:06)
[2017-08-30] MEDS: LITHIUM CARBONATE 300 MG CAPSULE PO SCH ×2 (07:55→16:06)
[2017-08-30] MEDS: PANTOPRAZOLE SODIUM 40 MG DR TABLET PO SCH ×2 (07:55→16:06)
[2017-08-30] MEDS: AmLODIPine BESYLATE 5 MG TABLET PO SCH (07:55)
[2017-08-30] MEDS: LORazepam 0.5 MG TABLET PO SCH ×3 (07:55→16:06)
[2017-08-30] MEDS: APIXABAN 5 MG TABLET PO SCH ×2 (07:55→16:06)
[2017-08-30 08:55] VITALS: BP 155/89
[2017-08-30 09:16] VITALS: BP 161/90
[2017-08-30 12:21] VITALS: BP 149/84
[2017-08-30] MEDS: ACETAMINOPHEN 325 MG TABLET PO PRN (12:21)
[2017-08-30] MEDS: ZOLPIDEM TARTRATE 10 MG TABLET PO PRN (20:04)
[2017-08-31 00:36] VITALS: BP 149/94
[2017-08-31] MEDS: IBUPROFEN 600 MG TABLET PO PRN (00:36)
[2017-08-31] MEDS: BENZOCAINE 10% 7 GM GEL TP PRN (02:48)
[2017-08-31 08:00] VITALS: BP 157/88
[2017-08-31] MEDS: LITHIUM CARBONATE 300 MG CAPSULE PO SCH ×2 (08:09→16:12)
[2017-08-31] MEDS: AmLODIPine BESYLATE 5 MG TABLET PO SCH (08:10)
[2017-08-31] MEDS: LORazepam 0.5 MG TABLET PO SCH ×3 (08:10→16:12)
[2017-08-31] MEDS: PANTOPRAZOLE SODIUM 40 MG DR TABLET PO SCH ×2 (08:11→16:12)
[2017-08-31] MEDS: APIXABAN 5 MG TABLET PO SCH ×2 (08:11→16:12)
[2017-08-31] MEDS: FAMOTIDINE 20 MG TABLET PO SCH ×2 (08:12→16:12)
[2017-08-31] MEDS: ACETAMINOPHEN 325 MG TABLET PO PRN (16:12)
[2017-08-31 16:14] VITALS: BP 175/105
[2017-08-31 17:15] VITALS: BP 150/90
[2017-08-31] MEDS: METOPROLOL SUCCINATE 25 MG ER TABLET PO SCH (18:19)
[2017-08-31] MEDS: ZOLPIDEM TARTRATE 10 MG TABLET PO PRN (20:59)
[2017-09-01] VITALS (8 sets, daily range): BP systolic 137–173; BP diastolic 79–97
[2017-09-01] MEDS: CloNIDine HCL 0.1 MG TABLET PO PRN (01:00)
[2017-09-01] MEDS: ACETAMINOPHEN 325 MG TABLET PO PRN ×3 (05:34→23:53)
[2017-09-01] MEDS: APIXABAN 5 MG TABLET PO SCH ×2 (09:00→16:09)
[2017-09-01] MEDS: LORazepam 0.5 MG TABLET PO SCH ×3 (09:00→16:09)
[2017-09-01] MEDS: FAMOTIDINE 20 MG TABLET PO SCH ×2 (09:00→16:10)
[2017-09-01] MEDS: AmLODIPine BESYLATE 10 MG TABLET PO SCH (09:00)
[2017-09-01] MEDS: LITHIUM CARBONATE 300 MG CAPSULE PO SCH ×2 (09:01→16:09)
[2017-09-01] MEDS: PANTOPRAZOLE SODIUM 40 MG DR TABLET PO SCH ×2 (09:01→16:09)
[2017-09-01] MEDS: METOPROLOL SUCCINATE 25 MG ER TABLET PO SCH (09:04)
[2017-09-01] MEDS: IBUPROFEN 600 MG TABLET PO PRN ×2 (10:25→17:15)
[2017-09-01] MEDS: ZOLPIDEM TARTRATE 10 MG TABLET PO PRN (21:05)
[2017-09-02] VITALS (7 sets, daily range): BP systolic 118–149; BP diastolic 73–100
[2017-09-02] MEDS: BENZOCAINE 10% 7 GM GEL TP PRN (06:12)
[2017-09-02] MEDS: APIXABAN 5 MG TABLET PO SCH ×2 (08:25→16:05)
[2017-09-02] MEDS: LORazepam 0.5 MG TABLET PO SCH ×3 (08:25→16:04)
[2017-09-02] MEDS: CloNIDine HCL 0.1 MG TABLET PO PRN (08:26)
[2017-09-02] MEDS: AmLODIPine BESYLATE 10 MG TABLET PO SCH (08:26)
[2017-09-02] MEDS: FAMOTIDINE 20 MG TABLET PO SCH ×2 (08:26→16:05)
[2017-09-02] MEDS: LITHIUM CARBONATE 300 MG CAPSULE PO SCH ×2 (08:26→16:05)
[2017-09-02] MEDS: PANTOPRAZOLE SODIUM 40 MG DR TABLET PO SCH ×2 (08:26→16:05)
[2017-09-02] MEDS ORDERED: METOPROLOL SUCCINATE 25 MG ER TABLET PO SCH (09:00)
[2017-09-02] MEDS: METOPROLOL SUCCINATE 50 MG ER TABLET PO SCH (09:50)
[2017-09-02] MEDS: ACETAMINOPHEN 325 MG TABLET PO PRN ×2 (09:50→12:39)
[2017-09-02] MEDS: IBUPROFEN 600 MG TABLET PO PRN ×2 (09:50→20:23)
[2017-09-02] MEDS: ZOLPIDEM TARTRATE 10 MG TABLET PO PRN (21:45)
[2017-09-03 00:56] VITALS: BP 148/105
[2017-09-03] MEDS: ACETAMINOPHEN 325 MG TABLET PO PRN ×3 (01:06→18:16)
[2017-09-03 06:30] VITALS: BP 122/73
[2017-09-03 08:00] VITALS: BP 147/93
[2017-09-03] MEDS: APIXABAN 5 MG TABLET PO SCH ×2 (08:32→16:07)
[2017-09-03] MEDS: METOPROLOL SUCCINATE 50 MG ER TABLET PO SCH (08:32)
[2017-09-03] MEDS: LORazepam 0.5 MG TABLET PO SCH ×3 (08:32→16:07)
[2017-09-03] MEDS: MAGNESIUM OXIDE 400 MG TABLET PO SCH (08:33)
[2017-09-03] MEDS: AmLODIPine BESYLATE 10 MG TABLET PO SCH (08:33)
[2017-09-03] MEDS: LITHIUM CARBONATE 300 MG CAPSULE PO SCH ×2 (08:33→16:07)
[2017-09-03] MEDS: FAMOTIDINE 20 MG TABLET PO SCH ×2 (08:33→16:07)
[2017-09-03] MEDS: PANTOPRAZOLE SODIUM 40 MG DR TABLET PO SCH ×2 (08:33→16:07)
[2017-09-03 17:18] VITALS: BP 146/90
[2017-09-03 18:15] VITALS: BP 133/81
[2017-09-03 19:15] VITALS: BP 131/83
[2017-09-03] MEDS: ZOLPIDEM TARTRATE 10 MG TABLET PO PRN (20:38)
[2017-09-04 00:20] VITALS: BP 129/98
[2017-09-04] MEDS: ACETAMINOPHEN 325 MG TABLET PO PRN ×3 (00:33→13:08)
[2017-09-04 06:30] VITALS: BP 162/94
[2017-09-04] MEDS: CloNIDine HCL 0.1 MG TABLET PO PRN (06:33)
[2017-09-04 07:35] VITALS: BP 134/80
[2017-09-04] MEDS: MULTIVITAMINS WITH MINERALS, THERAPEUTIC TABLET PO SCH (08:18)
[2017-09-04] MEDS: AmLODIPine BESYLATE 10 MG TABLET PO SCH (08:18)
[2017-09-04] MEDS: MAGNESIUM OXIDE 400 MG TABLET PO SCH (08:19)
[2017-09-04] MEDS: LITHIUM CARBONATE 300 MG CAPSULE PO SCH ×2 (08:19→16:06)
[2017-09-04] MEDS: PANTOPRAZOLE SODIUM 40 MG DR TABLET PO SCH ×2 (08:19→16:07)
[2017-09-04] MEDS: FAMOTIDINE 20 MG TABLET PO SCH ×2 (08:19→16:06)
[2017-09-04] MEDS: LORazepam 0.5 MG TABLET PO SCH ×3 (08:19→16:07)
[2017-09-04] MEDS: APIXABAN 5 MG TABLET PO SCH ×2 (08:19→16:07)
[2017-09-04] MEDS: METOPROLOL SUCCINATE 50 MG ER TABLET PO SCH (08:20)
[2017-09-04 12:38] VITALS: BP 133/89
[2017-09-04 13:08] VITALS: BP 115/77
[2017-09-04] MEDS: IBUPROFEN 600 MG TABLET PO PRN (19:29)
[2017-09-04 19:30] VITALS: BP 134/77
[2017-09-04] MEDS: ZOLPIDEM TARTRATE 10 MG TABLET PO PRN (21:37)
[2017-09-05 01:10] VITALS: BP 157/97
[2017-09-05 01:30] VITALS: BP 157/97
[2017-09-05] MEDS: IBUPROFEN 600 MG TABLET PO PRN ×3 (01:36→20:10)
[2017-09-05] MEDS: LORazepam 0.5 MG TABLET PO SCH ×3 (09:36→16:54)
[2017-09-05] MEDS: AmLODIPine BESYLATE 10 MG TABLET PO SCH (09:36)
[2017-09-05] MEDS: PANTOPRAZOLE SODIUM 40 MG DR TABLET PO SCH ×2 (09:37→16:55)
[2017-09-05] MEDS: MAGNESIUM OXIDE 400 MG TABLET PO SCH (09:37)
[2017-09-05] MEDS: LITHIUM CARBONATE 300 MG CAPSULE PO SCH ×2 (09:37→16:54)
[2017-09-05] MEDS: MULTIVITAMINS WITH MINERALS, THERAPEUTIC TABLET PO SCH (09:37)
[2017-09-05] MEDS: FAMOTIDINE 20 MG TABLET PO SCH ×2 (09:38→16:55)
[2017-09-05] MEDS: APIXABAN 5 MG TABLET PO SCH ×2 (09:38→16:54)
[2017-09-05] MEDS: METOPROLOL SUCCINATE 50 MG ER TABLET PO SCH (09:38)
[2017-09-05 20:10] VITALS: BP 134/74
[2017-09-05] MEDS: ZOLPIDEM TARTRATE 10 MG TABLET PO PRN (20:10)
[2017-09-05 20:56] VITALS: BP 146/90
[2017-09-06] VITALS (7 sets, daily range): BP systolic 139–182; BP diastolic 76–100
[2017-09-06] MEDS: ACETAMINOPHEN 325 MG TABLET PO PRN ×2 (00:05→09:09)
[2017-09-06] MEDS: CloNIDine HCL 0.1 MG TABLET PO PRN (00:05)
[2017-09-06] MEDS: IBUPROFEN 600 MG TABLET PO PRN ×2 (04:21→10:36)
[2017-09-06 08:29] LABS: ALANINE AMINOTRANSFERASE 25 U/L (12-78); ALBUMIN 3.7 g/dL (3.4-5.0); ALKALINE PHOSPHATASE 121 U/L (46-116); ANION GAP 8 mmol/L (8-16); ASPARTATE AMINOTRANSFERASE 17 U/L (15-37); BILIRUBIN,TOTAL 0.5 mg/dL (0.1-1.0); CALCIUM, TOTAL 8.7 mg/dL (8.8-10.5); CARBON DIOXIDE 26 mmol/L (22-29); CHLORIDE 103 mmol/L (98-107); CREATINE KINASE MB 1.5 ng/mL (0-5); CREATINE KINASE, TOTAL 144 U/L (26-192); CREATININE 0.84 mg/dL (0.60-1.30); GLOMERULAR FILTR. RATE CALC > 60 mL/min (>60); GLUCOSE,RANDOM 116 mg/dL (70-110); POTASSIUM 4.1 mmol/L (3.5-5.1); SODIUM SERUM 137 mmol/L (136-145); UREA NITROGEN, BLOOD 23 mg/dL (7-18)
[2017-09-06] MEDS: FAMOTIDINE 20 MG TABLET PO SCH ×2 (09:04→16:28)
[2017-09-06] MEDS: APIXABAN 5 MG TABLET PO SCH ×2 (09:05→16:26)
[2017-09-06] MEDS: METOPROLOL SUCCINATE 50 MG ER TABLET PO SCH (09:05)
[2017-09-06] MEDS: LORazepam 0.5 MG TABLET PO SCH ×3 (09:07→16:26)
[2017-09-06] MEDS: PANTOPRAZOLE SODIUM 40 MG DR TABLET PO SCH ×2 (09:07→16:26)
[2017-09-06] MEDS: MAGNESIUM OXIDE 400 MG TABLET PO SCH (09:07)
[2017-09-06] MEDS: AmLODIPine BESYLATE 10 MG TABLET PO SCH (09:07)
[2017-09-06] MEDS: LITHIUM CARBONATE 300 MG CAPSULE PO SCH ×2 (09:07→16:26)
[2017-09-06] MEDS: MULTIVITAMINS WITH MINERALS, THERAPEUTIC TABLET PO SCH (09:08)
[2017-09-07] MEDS: ACETAMINOPHEN 325 MG TABLET PO PRN ×2 (02:24→16:15)
[2017-09-07 02:29] VITALS: BP 136/85
[2017-09-07] MEDS: APIXABAN 5 MG TABLET PO SCH ×2 (09:18→16:11)
[2017-09-07] MEDS: METOPROLOL SUCCINATE 50 MG ER TABLET PO SCH (09:18)
[2017-09-07] MEDS: FAMOTIDINE 20 MG TABLET PO SCH ×2 (09:18→16:11)
[2017-09-07] MEDS: LORazepam 0.5 MG TABLET PO SCH (09:20)
[2017-09-07] MEDS: LITHIUM CARBONATE 300 MG CAPSULE PO SCH ×2 (09:21→16:10)
[2017-09-07] MEDS: MULTIVITAMINS WITH MINERALS, THERAPEUTIC TABLET PO SCH (09:21)
[2017-09-07] MEDS: AmLODIPine BESYLATE 10 MG TABLET PO SCH (09:21)
[2017-09-07] MEDS: PANTOPRAZOLE SODIUM 40 MG DR TABLET PO SCH ×2 (09:21→16:10)
[2017-09-07] MEDS: MAGNESIUM OXIDE 400 MG TABLET PO SCH (09:21)
[2017-09-07] MEDS: IBUPROFEN 600 MG TABLET PO PRN (13:04)
[2017-09-07 13:05] VITALS: BP 140/89
[2017-09-07] MEDS: CYCLOBENZAPRINE HCL 10 MG TABLET PO PRN (13:08)
[2017-09-07 16:10] VITALS: BP 133/81
[2017-09-07 17:10] VITALS: BP 137/78
[2017-09-08] MEDS: ZOLPIDEM TARTRATE 10 MG TABLET PO PRN ×2 (03:38→21:34)
[2017-09-08] MEDS: IBUPROFEN 600 MG TABLET PO PRN ×2 (03:39→14:12)
[2017-09-08 03:43] VITALS: BP 151/90
[2017-09-08] MEDS: METOPROLOL SUCCINATE 50 MG ER TABLET PO SCH (09:30)
[2017-09-08] MEDS: FAMOTIDINE 20 MG TABLET PO SCH ×2 (09:30→16:41)
[2017-09-08] MEDS: APIXABAN 5 MG TABLET PO SCH ×2 (09:30→16:41)
[2017-09-08] MEDS: MAGNESIUM OXIDE 400 MG TABLET PO SCH (09:32)
[2017-09-08] MEDS: MULTIVITAMINS WITH MINERALS, THERAPEUTIC TABLET PO SCH (09:32)
[2017-09-08] MEDS: PANTOPRAZOLE SODIUM 40 MG DR TABLET PO SCH ×2 (09:32→16:41)
[2017-09-08] MEDS: LITHIUM CARBONATE 300 MG CAPSULE PO SCH ×2 (09:33→16:41)
[2017-09-08] MEDS: AmLODIPine BESYLATE 10 MG TABLET PO SCH (09:33)
[2017-09-08] MEDS: LORazepam 0.5 MG TABLET PO SCH ×3 (09:33→16:41)
[2017-09-08 09:34] VITALS: BP 139/119
[2017-09-08] MEDS: CYCLOBENZAPRINE HCL 10 MG TABLET PO PRN ×3 (09:34→21:34)
[2017-09-08] MEDS: CloNIDine HCL 0.1 MG TABLET PO PRN (09:35)
[2017-09-08 17:41] VITALS: BP 139/70
[2017-09-08 21:33] VITALS: BP 135/77
[2017-09-09 01:15] VITALS: BP 160/80
[2017-09-09] MEDS: IBUPROFEN 600 MG TABLET PO PRN ×2 (01:20→12:23)
[2017-09-09] MEDS: MULTIVITAMINS WITH MINERALS, THERAPEUTIC TABLET PO SCH (09:00)
[2017-09-09] MEDS: AmLODIPine BESYLATE 10 MG TABLET PO SCH (09:12)
[2017-09-09] MEDS: MAGNESIUM OXIDE 400 MG TABLET PO SCH (09:12)
[2017-09-09] MEDS: PANTOPRAZOLE SODIUM 40 MG DR TABLET PO SCH ×2 (09:12→16:10)
[2017-09-09] MEDS: LITHIUM CARBONATE 300 MG CAPSULE PO SCH ×2 (09:12→16:10)
[2017-09-09] MEDS: LORazepam 0.5 MG TABLET PO SCH ×3 (09:13→16:10)
[2017-09-09] MEDS: FAMOTIDINE 20 MG TABLET PO SCH ×2 (09:15→16:09)
[2017-09-09] MEDS: APIXABAN 5 MG TABLET PO SCH ×2 (09:15→16:09)
[2017-09-09] MEDS: METOPROLOL SUCCINATE 50 MG ER TABLET PO SCH (09:16)
[2017-09-09 09:46] VITALS: BP 144/82
[2017-09-09 12:23] VITALS: BP 125/60
[2017-09-09 17:24] VITALS: BP 138/72
[2017-09-09] MEDS: ACETAMINOPHEN 325 MG TABLET PO PRN (17:29)
[2017-09-09] MEDS: ZOLPIDEM TARTRATE 10 MG TABLET PO PRN (20:05)
[2017-09-10 03:44] VITALS: BP 153/95
[2017-09-10] MEDS: IBUPROFEN 600 MG TABLET PO PRN (03:50)
[2017-09-10] MEDS: MULTIVITAMINS WITH MINERALS, THERAPEUTIC TABLET PO SCH (09:25)
[2017-09-10] MEDS: PANTOPRAZOLE SODIUM 40 MG DR TABLET PO SCH ×2 (09:25→16:02)
[2017-09-10] MEDS: APIXABAN 5 MG TABLET PO SCH ×2 (09:25→16:03)
[2017-09-10] MEDS: LITHIUM CARBONATE 300 MG CAPSULE PO SCH ×2 (09:25→16:02)
[2017-09-10] MEDS: LORazepam 0.5 MG TABLET PO SCH ×3 (09:25→16:02)
[2017-09-10] MEDS: AmLODIPine BESYLATE 10 MG TABLET PO SCH (09:25)
[2017-09-10] MEDS: FAMOTIDINE 20 MG TABLET PO SCH ×2 (09:25→16:03)
[2017-09-10] MEDS: MAGNESIUM OXIDE 400 MG TABLET PO SCH (09:25)
[2017-09-10] MEDS: METOPROLOL SUCCINATE 50 MG ER TABLET PO SCH (09:26)
[2017-09-10 09:47] VITALS: BP 127/76
[2017-09-10 16:00] VITALS: BP 131/81
[2017-09-10] MEDS: ACETAMINOPHEN 325 MG TABLET PO PRN (16:05)
[2017-09-10 17:00] VITALS: BP 128/77
[2017-09-10] MEDS: ZOLPIDEM TARTRATE 10 MG TABLET PO PRN (21:33)
[2017-09-10] MEDS ORDERED: DOCUSATE SODIUM 100 MG CAPSULE PO ONE (22:15)
[2017-09-11 05:10] VITALS: BP 142/76
[2017-09-11] MEDS: IBUPROFEN 600 MG TABLET PO PRN ×2 (05:14→16:22)
[2017-09-11] MEDS: METOPROLOL SUCCINATE 50 MG ER TABLET PO SCH (09:11)
[2017-09-11] MEDS: FAMOTIDINE 20 MG TABLET PO SCH ×2 (09:11→14:47)
[2017-09-11 09:12] VITALS: BP 173/92
[2017-09-11] MEDS: APIXABAN 5 MG TABLET PO SCH ×2 (09:12→16:17)
[2017-09-11] MEDS: CYCLOBENZAPRINE HCL 10 MG TABLET PO PRN (09:12)
[2017-09-11] MEDS: LORazepam 0.5 MG TABLET PO SCH ×3 (09:13→16:17)
[2017-09-11] MEDS: AmLODIPine BESYLATE 10 MG TABLET PO SCH (09:14)
[2017-09-11] MEDS: PANTOPRAZOLE SODIUM 40 MG DR TABLET PO SCH ×2 (09:14→16:16)
[2017-09-11] MEDS: MAGNESIUM OXIDE 400 MG TABLET PO SCH (09:14)
[2017-09-11] MEDS: DOCUSATE SODIUM 100 MG CAPSULE PO SCH ×2 (09:14→16:16)
[2017-09-11] MEDS: LITHIUM CARBONATE 300 MG CAPSULE PO SCH ×2 (09:14→16:16)
[2017-09-11] MEDS: MULTIVITAMINS WITH MINERALS, THERAPEUTIC TABLET PO SCH (09:15)
[2017-09-11 10:01] VITALS: BP 173/90
[2017-09-11] MEDS: ACETAMINOPHEN 325 MG TABLET PO PRN (11:22)
[2017-09-11 13:56] VITALS: BP 133/76
[2017-09-11] MEDS: BENZOCAINE 10% 7 GM GEL TP PRN (14:45)
[2017-09-11 16:20] VITALS: BP 141/71
[2017-09-11 16:55] LABS: APPEARANCE,URINE CLEAR (CLEAR); BILIRUBIN,URINE NEGATIVE (NEGATIVE); GLUCOSE, URINE (UA) NEGATIVE (NEGATIVE); KETONES,URINE NEGATIVE (NEGATIVE); LEUKOCYTE ESTERASE ,URINE NEGATIVE (NEGATIVE); NITRATE,URINE NEGATIVE (NEGATIVE); OCCULT BLOOD,URINE NEGATIVE (NEGATIVE); PH,URINE 6.5 (5.0-8.0); PROTEIN,URINE NEGATIVE (NEGATIVE)
[2017-09-11 17:20] VITALS: BP 136/81
[2017-09-11] MEDS: ZOLPIDEM TARTRATE 10 MG TABLET PO PRN (21:18)
[2017-09-12] MEDS: IBUPROFEN 600 MG TABLET PO PRN (05:24)
[2017-09-12 05:29] VITALS: BP 140/78
[2017-09-12] MEDS: LORazepam 0.5 MG TABLET PO SCH ×3 (10:27→16:14)
[2017-09-12] MEDS: MULTIVITAMINS WITH MINERALS, THERAPEUTIC TABLET PO SCH (10:28)
[2017-09-12] MEDS: METOPROLOL SUCCINATE 50 MG ER TABLET PO SCH (10:28)
[2017-09-12] MEDS: MAGNESIUM OXIDE 400 MG TABLET PO SCH (10:28)
[2017-09-12] MEDS: LITHIUM CARBONATE 300 MG CAPSULE PO SCH ×2 (10:28→16:14)
[2017-09-12] MEDS: PANTOPRAZOLE SODIUM 40 MG DR TABLET PO SCH ×2 (10:28→16:14)
[2017-09-12] MEDS: DOCUSATE SODIUM 100 MG CAPSULE PO SCH ×2 (10:28→16:14)
[2017-09-12] MEDS: APIXABAN 5 MG TABLET PO SCH ×2 (10:28→16:15)
[2017-09-12] MEDS: FAMOTIDINE 20 MG TABLET PO SCH ×2 (10:28→16:15)
[2017-09-12] MEDS: AmLODIPine BESYLATE 10 MG TABLET PO SCH (10:28)
[2017-09-12 10:32] VITALS: BP 139/80
[2017-09-12] MEDS: ZOLPIDEM TARTRATE 10 MG TABLET PO PRN (20:28)
[2017-09-12 21:17] VITALS: BP 127/87
[2017-09-13] VITALS (7 sets, daily range): BP systolic 130–148; BP diastolic 71–110
[2017-09-13] MEDS: IBUPROFEN 600 MG TABLET PO PRN ×3 (01:14→16:05)
[2017-09-13] MEDS: ACETAMINOPHEN 325 MG TABLET PO PRN (04:28)
[2017-09-13] MEDS: CYCLOBENZAPRINE HCL 10 MG TABLET PO PRN ×3 (07:01→19:00)
[2017-09-13] MEDS: MULTIVITAMINS WITH MINERALS, THERAPEUTIC TABLET PO SCH ×2 (09:00→09:04)
[2017-09-13] MEDS: APIXABAN 5 MG TABLET PO SCH ×2 (09:04→16:04)
[2017-09-13] MEDS: LITHIUM CARBONATE 300 MG CAPSULE PO SCH ×2 (09:04→16:04)
[2017-09-13] MEDS: PANTOPRAZOLE SODIUM 40 MG DR TABLET PO SCH ×2 (09:04→16:05)
[2017-09-13] MEDS: LORazepam 0.5 MG TABLET PO SCH ×3 (09:04→16:04)
[2017-09-13] MEDS: AmLODIPine BESYLATE 10 MG TABLET PO SCH (09:04)
[2017-09-13] MEDS: DOCUSATE SODIUM 100 MG CAPSULE PO SCH ×2 (09:04→16:04)
[2017-09-13] MEDS: METOPROLOL SUCCINATE 50 MG ER TABLET PO SCH (09:04)
[2017-09-13] MEDS: FAMOTIDINE 20 MG TABLET PO SCH ×2 (09:04→16:04)
[2017-09-13] MEDS: MAGNESIUM OXIDE 400 MG TABLET PO SCH (09:05)
[2017-09-13] MEDS ORDERED: BISACODYL 5 MG EC TABLET PO PRN (14:00)
[2017-09-13] MEDS: ZOLPIDEM TARTRATE 10 MG TABLET PO PRN (21:40)
[2017-09-14] MEDS: ACETAMINOPHEN 325 MG TABLET PO PRN ×2 (00:31→12:14)
[2017-09-14 00:43] VITALS: BP 136/89
[2017-09-14] MEDS: CYCLOBENZAPRINE HCL 10 MG TABLET PO PRN ×2 (04:15→13:30)
[2017-09-14 08:00] VITALS: BP 139/98
[2017-09-14] MEDS: DOCUSATE SODIUM 100 MG CAPSULE PO SCH ×2 (08:24→16:02)
[2017-09-14] MEDS: APIXABAN 5 MG TABLET PO SCH ×2 (08:24→16:03)
[2017-09-14] MEDS: LORazepam 0.5 MG TABLET PO SCH ×3 (08:24→16:03)
[2017-09-14] MEDS: AmLODIPine BESYLATE 10 MG TABLET PO SCH (08:25)
[2017-09-14] MEDS: FAMOTIDINE 20 MG TABLET PO SCH ×2 (08:25→16:03)
[2017-09-14] MEDS: MAGNESIUM OXIDE 400 MG TABLET PO SCH (08:25)
[2017-09-14] MEDS: LITHIUM CARBONATE 300 MG CAPSULE PO SCH ×2 (08:25→16:02)
[2017-09-14] MEDS: PANTOPRAZOLE SODIUM 40 MG DR TABLET PO SCH ×2 (08:26→16:02)
[2017-09-14] MEDS: MULTIVITAMINS WITH MINERALS, THERAPEUTIC TABLET PO SCH (08:26)
[2017-09-14] MEDS: METOPROLOL SUCCINATE 50 MG ER TABLET PO SCH (08:27)
[2017-09-14 12:14] VITALS: BP 128/74
[2017-09-14 13:14] VITALS: BP 136/74
[2017-09-14 14:30] VITALS: BP 122/71
[2017-09-14] MEDS: ZOLPIDEM TARTRATE 10 MG TABLET PO PRN (20:12)
[2017-09-14 20:23] VITALS: BP 141/81
[2017-09-15 02:16] VITALS: BP 116/69
[2017-09-15] MEDS: IBUPROFEN 600 MG TABLET PO PRN ×2 (02:16→09:05)
[2017-09-15] MEDS: CYCLOBENZAPRINE HCL 10 MG TABLET PO PRN (04:11)
[2017-09-15 04:12] VITALS: BP 103/79
[2017-09-15] MEDS: MULTIVITAMINS WITH MINERALS, THERAPEUTIC TABLET PO SCH (09:00)
[2017-09-15 09:05] VITALS: BP 143/83
[2017-09-15] MEDS: DOCUSATE SODIUM 100 MG CAPSULE PO SCH ×2 (09:05→16:15)
[2017-09-15] MEDS: MAGNESIUM OXIDE 400 MG TABLET PO SCH (09:05)
[2017-09-15] MEDS: AmLODIPine BESYLATE 10 MG TABLET PO SCH (09:05)
[2017-09-15] MEDS: PANTOPRAZOLE SODIUM 40 MG DR TABLET PO SCH ×2 (09:05→16:15)
[2017-09-15] MEDS: LITHIUM CARBONATE 300 MG CAPSULE PO SCH ×2 (09:05→16:15)
[2017-09-15] MEDS: LORazepam 0.5 MG TABLET PO SCH ×3 (09:09→16:15)
[2017-09-15] MEDS: APIXABAN 5 MG TABLET PO SCH ×2 (09:09→16:15)
[2017-09-15] MEDS: METOPROLOL SUCCINATE 50 MG ER TABLET PO SCH (09:10)
[2017-09-15] MEDS: FAMOTIDINE 20 MG TABLET PO SCH ×2 (09:10→16:15)
[2017-09-15 09:16] VITALS: BP 143/83
[2017-09-15] MEDS: ACETAMINOPHEN 325 MG TABLET PO PRN (16:17)
[2017-09-15 16:20] VITALS: BP 140/90
[2017-09-15] MEDS: ZOLPIDEM TARTRATE 10 MG TABLET PO PRN (20:09)
[2017-09-16 00:52] VITALS: BP 119/83
[2017-09-16 03:34] VITALS: BP 146/89
[2017-09-16] MEDS: CYCLOBENZAPRINE HCL 10 MG TABLET PO PRN ×2 (03:34→12:13)
[2017-09-16] MEDS: IBUPROFEN 600 MG TABLET PO PRN ×2 (07:18→13:27)
[2017-09-16 07:19] VITALS: BP 131/86
[2017-09-16 08:45] VITALS: BP 134/84
[2017-09-16] MEDS: METOPROLOL SUCCINATE 50 MG ER TABLET PO SCH (09:03)
[2017-09-16] MEDS: DOCUSATE SODIUM 100 MG CAPSULE PO SCH ×2 (09:03→16:09)
[2017-09-16] MEDS: PANTOPRAZOLE SODIUM 40 MG DR TABLET PO SCH ×2 (09:03→16:08)
[2017-09-16] MEDS: APIXABAN 5 MG TABLET PO SCH ×2 (09:03→16:08)
[2017-09-16] MEDS: ACETAMINOPHEN 325 MG TABLET PO PRN (09:03)
[2017-09-16] MEDS: MULTIVITAMINS WITH MINERALS, THERAPEUTIC TABLET PO SCH (09:03)
[2017-09-16] MEDS: AmLODIPine BESYLATE 10 MG TABLET PO SCH (09:03)
[2017-09-16] MEDS: LITHIUM CARBONATE 300 MG CAPSULE PO SCH ×2 (09:03→16:08)
[2017-09-16] MEDS: FAMOTIDINE 20 MG TABLET PO SCH ×2 (09:03→16:08)
[2017-09-16] MEDS: LORazepam 0.5 MG TABLET PO SCH ×3 (09:03→16:09)
[2017-09-16] MEDS: MAGNESIUM OXIDE 400 MG TABLET PO SCH (09:04)
[2017-09-16 16:47] VITALS: BP 134/94
[2017-09-16] MEDS: ZOLPIDEM TARTRATE 10 MG TABLET PO PRN (22:55)
[2017-09-17] MEDS: LORazepam 0.5 MG TABLET PO SCH ×3 (08:01→16:12)
[2017-09-17] MEDS: LITHIUM CARBONATE 300 MG CAPSULE PO SCH ×2 (08:03→16:12)
[2017-09-17] MEDS: AmLODIPine BESYLATE 10 MG TABLET PO SCH (08:03)
[2017-09-17] MEDS: PANTOPRAZOLE SODIUM 40 MG DR TABLET PO SCH ×2 (08:03→16:12)
[2017-09-17] MEDS: ACETAMINOPHEN 325 MG TABLET PO PRN (08:03)
[2017-09-17] MEDS: DOCUSATE SODIUM 100 MG CAPSULE PO SCH ×2 (08:03→16:13)
[2017-09-17] MEDS: MAGNESIUM OXIDE 400 MG TABLET PO SCH (08:03)
[2017-09-17 08:05] VITALS: BP 130/87
[2017-09-17] MEDS: MULTIVITAMINS WITH MINERALS, THERAPEUTIC TABLET PO SCH (09:00)
[2017-09-17 09:43] VITALS: BP 130/87
[2017-09-17] MEDS: APIXABAN 5 MG TABLET PO SCH ×2 (10:13→16:11)
[2017-09-17] MEDS: METOPROLOL SUCCINATE 50 MG ER TABLET PO SCH (10:13)
[2017-09-17] MEDS: FAMOTIDINE 20 MG TABLET PO SCH ×2 (10:13→16:11)
[2017-09-17 16:34] VITALS: BP 140/91
[2017-09-17] MEDS: ZOLPIDEM TARTRATE 10 MG TABLET PO PRN (20:19)
[2017-09-18 03:41] VITALS: BP 133/83
[2017-09-18] MEDS: IBUPROFEN 600 MG TABLET PO PRN ×2 (03:46→16:21)
[2017-09-18] MEDS: LITHIUM CARBONATE 300 MG CAPSULE PO SCH ×2 (08:05→16:19)
[2017-09-18] MEDS: FAMOTIDINE 20 MG TABLET PO SCH ×2 (08:05→16:19)
[2017-09-18] MEDS: AmLODIPine BESYLATE 10 MG TABLET PO SCH (08:05)
[2017-09-18] MEDS: METOPROLOL SUCCINATE 50 MG ER TABLET PO SCH (08:05)
[2017-09-18] MEDS: APIXABAN 5 MG TABLET PO SCH ×2 (08:05→16:19)
[2017-09-18] MEDS: MAGNESIUM OXIDE 400 MG TABLET PO SCH (08:05)
[2017-09-18] MEDS: MULTIVITAMINS WITH MINERALS, THERAPEUTIC TABLET PO SCH (08:05)
[2017-09-18] MEDS: LORazepam 0.5 MG TABLET PO SCH ×3 (08:05→16:19)
[2017-09-18] MEDS: PANTOPRAZOLE SODIUM 40 MG DR TABLET PO SCH ×2 (08:05→16:20)
[2017-09-18] MEDS: DOCUSATE SODIUM 100 MG CAPSULE PO SCH ×2 (08:05→16:19)
[2017-09-18 09:48] VITALS: BP 143/76
[2017-09-18] MEDS: MUPIROCIN CALCIUM 2% 22 GM OINTMENT NASAL SCH (16:19)
[2017-09-18 16:23] VITALS: BP 127/82
[2017-09-18] MEDS: CYCLOBENZAPRINE HCL 10 MG TABLET PO PRN (20:21)
[2017-09-18] MEDS: ZOLPIDEM TARTRATE 10 MG TABLET PO PRN (20:45)
[2017-09-19 03:48] VITALS: BP 125/84
[2017-09-19] MEDS: IBUPROFEN 600 MG TABLET PO PRN ×2 (03:49→12:15)
[2017-09-19 08:30] VITALS: BP 149/106
[2017-09-19] MEDS: MUPIROCIN CALCIUM 2% 22 GM OINTMENT NASAL SCH ×2 (09:00→16:42)
[2017-09-19] MEDS: METOPROLOL SUCCINATE 50 MG ER TABLET PO SCH (09:02)
[2017-09-19] MEDS: MULTIVITAMINS WITH MINERALS, THERAPEUTIC TABLET PO SCH (09:02)
[2017-09-19] MEDS: AmLODIPine BESYLATE 10 MG TABLET PO SCH (09:02)
[2017-09-19] MEDS: FAMOTIDINE 20 MG TABLET PO SCH ×2 (09:02→16:42)
[2017-09-19] MEDS: LITHIUM CARBONATE 300 MG CAPSULE PO SCH ×2 (09:02→16:42)
[2017-09-19] MEDS: PANTOPRAZOLE SODIUM 40 MG DR TABLET PO SCH ×2 (09:02→16:42)
[2017-09-19] MEDS: LORazepam 0.5 MG TABLET PO SCH ×3 (09:02→16:42)
[2017-09-19] MEDS: MAGNESIUM OXIDE 400 MG TABLET PO SCH (09:02)
[2017-09-19] MEDS: DOCUSATE SODIUM 100 MG CAPSULE PO SCH ×2 (09:02→16:42)
[2017-09-19] MEDS: APIXABAN 5 MG TABLET PO SCH ×2 (09:02→16:42)
[2017-09-19 10:02] VITALS: BP 149/106
[2017-09-19 16:45] VITALS: BP 147/84
[2017-09-19] MEDS: CYCLOBENZAPRINE HCL 10 MG TABLET PO PRN (16:45)
[2017-09-19] MEDS: ZOLPIDEM TARTRATE 10 MG TABLET PO PRN (20:41)
[2017-09-20 01:00] VITALS: BP 106/68
[2017-09-20] MEDS: CYCLOBENZAPRINE HCL 10 MG TABLET PO PRN (01:31)
[2017-09-20 05:00] VITALS: BP 112/85
[2017-09-20] MEDS: IBUPROFEN 600 MG TABLET PO PRN (05:14)
[2017-09-20] MEDS: APIXABAN 5 MG TABLET PO SCH ×2 (08:11→16:09)
[2017-09-20] MEDS: METOPROLOL SUCCINATE 50 MG ER TABLET PO SCH (08:11)
[2017-09-20] MEDS: MAGNESIUM OXIDE 400 MG TABLET PO SCH (08:11)
[2017-09-20] MEDS: LORazepam 0.5 MG TABLET PO SCH ×3 (08:11→16:09)
[2017-09-20] MEDS: LITHIUM CARBONATE 300 MG CAPSULE PO SCH ×2 (08:11→16:09)
[2017-09-20] MEDS: FAMOTIDINE 20 MG TABLET PO SCH ×2 (08:11→16:09)
[2017-09-20] MEDS: DOCUSATE SODIUM 100 MG CAPSULE PO SCH ×2 (08:11→16:09)
[2017-09-20] MEDS: PANTOPRAZOLE SODIUM 40 MG DR TABLET PO SCH ×2 (08:11→16:08)
[2017-09-20] MEDS: AmLODIPine BESYLATE 10 MG TABLET PO SCH (08:11)
[2017-09-20] MEDS: MULTIVITAMINS WITH MINERALS, THERAPEUTIC TABLET PO SCH (08:16)
[2017-09-20] MEDS: MUPIROCIN CALCIUM 2% 22 GM OINTMENT NASAL SCH ×2 (10:57→16:14)
[2017-09-20 11:05] VITALS: BP 132/75
[2017-09-20 12:57] VITALS: BP 139/70
[2017-09-20] MEDS: ACETAMINOPHEN 325 MG TABLET PO PRN (12:57)
[2017-09-20] MEDS ORDERED: LITH300C3 PO (15:12)
[2017-09-20] MEDS ORDERED: LORA0.5T2 PO (15:15)
[2017-09-20] MEDS ORDERED: AMLO-512 PO (15:17)
[2017-09-20] MEDS ORDERED: DSS100 PO (15:17)
[2017-09-20] MEDS ORDERED: METO-558 PO (15:18)
[2017-09-20] MEDS ORDERED: MULT-1239 PO (15:18)
[2017-09-20] MEDS ORDERED: MAGOX PO (15:18)
[2017-09-20] MEDS ORDERED: MUPI1OIN4 NS (15:19)
[2017-09-20] MEDS ORDERED: PANT40TA25 PO (15:30)
== END 2017-09-20 16:15 | disposition home or self-care (01) | DRG 750 ==
LOC: EMS 15:29 → 3EI 21:30
PROVIDERS: ADMIT Psychiatry & Neurology Psychiatry; ATTEND Psychiatry & Neurology Psychiatry
DX: F25.1 Schizoaffective disorder, depressive type (principal); D64.9 Anemia, unspecified; K22.2 Esophageal obstruction; Z91.19 Patient's noncompliance with other medical treatment and regimen; F41.1 Generalized anxiety disorder; E55.9 Vitamin D deficiency, unspecified; G89.29 Other chronic pain; H91.90 Unspecified hearing loss, unspecified ear; I25.10 Atherosclerotic heart disease of native coronary artery without angina pectoris; K21.9 Gastro-esophageal reflux disease without esophagitis; K44.9 Diaphragmatic hernia without obstruction or gangrene; R26.9 Unspecified abnormalities of gait and mobility; N18.9 Chronic kidney disease, unspecified; I12.9 Hypertensive chronic kidney disease with stage 1 through stage 4 chronic kidney disease, or unspecified chronic kidney disease; K58.9 Irritable bowel syndrome, unspecified; M19.90 Unspecified osteoarthritis, unspecified site; Z22.322 Carrier or suspected carrier of Methicillin resistant Staphylococcus aureus; Z79.01 Long term (current) use of anticoagulants; Z86.711 Personal history of pulmonary embolism; Z85.41 Personal history of malignant neoplasm of cervix uteri; Z90.710 Acquired absence of both cervix and uterus; Z90.49 Acquired absence of other specified parts of digestive tract
CPT/HCPCS: 80074; 82306; 82607; 82746; 83036; 83735; 84439; 84443; 87081; 97116; 97163; 97166; 97530; 97535; 99285; G0480

== ENCOUNTER 2017-10-02 13:46 | Emergency (ER) | payer MEDICARE, OTHER ==
[~2017-10-02] VITALS: Ht 172.7 cm; Wt 68.2 kg
[~2017-10-02 13:46] MED LIST changes: +AMLO-512 PO; -BISM262O25 PO; +DIVA-78 PO; +DSS100 PO; -GABA-531 PO; +LITH300C3 PO; +MAGOX PO; +METO-558 PO; +MULT-1239 PO; +PANT40TA25 PO; -PROP10TA73 PO; +TRAM50TA4 PO; -TRAZ-147 PO; -[UNRECOGNIZED DRUG - OTHER] PO
[2017-10-02] MEDS ORDERED: KETOROLAC TROMETHAMINE 30 MG/ML VIAL IM ONE (14:15)
[2017-10-02] MEDS ORDERED: MORPHINE SULFATE 4 MG/ML SYRINGE IM ONE (14:15)
[2017-10-02] MEDS ORDERED: HYDROCODONE/ACETAMINOPHEN 5-325 MG TABLET PO ONE (16:30)
[2017-10-02 17:56] VITALS: BP 129/85
== END 2017-10-02 18:01 | disposition home or self-care (01) ==
LOC: EMS 13:48
DX: G89.29 Other chronic pain (principal); M54.5 Low back pain; I10 Essential (primary) hypertension; F41.9 Anxiety disorder, unspecified; F31.9 Bipolar disorder, unspecified; K21.9 Gastro-esophageal reflux disease without esophagitis; M19.90 Unspecified osteoarthritis, unspecified site; F15.10 Other stimulant abuse, uncomplicated; Z79.899 Other long term (current) drug therapy
CPT/HCPCS: 96372; 99284; J1885; J2270

== ENCOUNTER 2017-10-02 18:51 | Emergency (ER) | payer MEDICARE, OTHER | END 2017-10-02 19:06 | disposition left against medical advice (07) | LOC: EMS 18:52 | DX: Z53.21 Procedure and treatment not carried out due to patient leaving prior to being seen by health care provider (principal) ==

== ENCOUNTER 2017-10-03 16:46 | Emergency (ER) | payer MEDICARE, OTHER ==
[~2017-10-03] VITALS: Ht 172.7 cm; Wt 68.2 kg
[2017-10-03] MEDS ORDERED: KETOROLAC TROMETHAMINE 30 MG/ML VIAL IVP ONE (17:30)
[2017-10-03] MEDS ORDERED: LORazepam 1 MG TABLET PO ONE (17:30)
[2017-10-03] MEDS ORDERED: TraMADol HCL 50 MG TABLET PO ONE (17:30)
[2017-10-03 18:27] VITALS: BP 108/59
== END 2017-10-03 18:31 | disposition home or self-care (01) ==
LOC: EMS 16:48
DX: M54.5 Low back pain (principal); G89.29 Other chronic pain; I10 Essential (primary) hypertension; K21.9 Gastro-esophageal reflux disease without esophagitis; F15.90 Other stimulant use, unspecified, uncomplicated; F19.90 Other psychoactive substance use, unspecified, uncomplicated
CPT/HCPCS: 96374; 99284; J1885

== ENCOUNTER 2017-10-06 13:24 | Emergency (ER) | payer MEDICARE, OTHER ==
[~2017-10-06] VITALS: Ht 172.7 cm; Wt 68.2 kg
[2017-10-06 14:53] LABS: BASOPHILS % (AUTO) 0.5 % (0.0-2.0); HEMATOCRIT 33.9 % (36-46); HEMOGLOBIN 11.5 g/dL (12.0-16.0); LYMPHOCYTES # (AUTO) 3.7 K/uL (1.0-4.8); LYMPHOCYTES % (AUTO) 38.3 % (22.0-44.0); MEAN CORPUSCULAR HEMOGLOBIN 32.7 pg (26.0-34.0); MEAN CORPUSCULAR HGB CONC 33.8 G/dL (31.0-37.0); MEAN CORPUSCULAR VOLUME 97 fL (80-100); MONOCYTES # (AUTO) 0.8 K/uL (0.1-1.0); MONOCYTES % (AUTO) 8.8 % (2.0-9.0); NEUTROPHILS % (AUTO) 51.4 % (40.0-70.0); PLATELET COUNT (AUTO) 691 K/uL (150-450); RED CELL DISTRIBUTION WIDTH 14.9 % (11.5-14.5)
[2017-10-06] MEDS ORDERED: PROPOFOL 1000 MG/ISO-OSM 100 ML IV PRN (15:00)
[2017-10-06 15:06] LABS: CALCIUM, TOTAL 8.3 mg/dL (8.8-10.5); CREATININE 0.92 mg/dL (0.60-1.30); POTASSIUM 4.7 mmol/L (3.5-5.1)
[2017-10-06 15:12] LABS: ALBUMIN 3.1 g/dL (3.4-5.0); BILIRUBIN,TOTAL 0.3 mg/dL (0.1-1.0); TOTAL PROTEIN, SERUM 6.3 g/dL (6.4-8.2)
[2017-10-06 15:23] LABS: BILIRUBIN,URINE NEGATIVE (NEGATIVE); GLUCOSE, URINE (UA) NEGATIVE (NEGATIVE); KETONES,URINE NEGATIVE (NEGATIVE); LEUKOCYTE ESTERASE ,URINE TRACE (NEGATIVE); NITRATE,URINE NEGATIVE (NEGATIVE); OCCULT BLOOD,URINE NEGATIVE (NEGATIVE); PH,URINE 7.5 (5.0-8.0); PROTEIN,URINE NEGATIVE (NEGATIVE); UROBILINOGEN,URINE 0.2 mg/dL (<=1.0)
[2017-10-06 15:30] LABS: APPEARANCE,URINE HAZY (CLEAR)
[2017-10-06 16:04] LABS: RBC,URINE None Seen /HPF (0-2)
[2017-10-06 16:05] LABS: BACTERIA,URINE Few /HPF (None Seen)
[2017-10-06 16:06] LABS: RENAL EPITHELIAL CELLS,URINE Few /LPF (None Seen); SQUAMOUS EPITHELIAL CELL,UR Few /LPF (None Seen)
[2017-10-06 16:58] VITALS: BP 115/79
[2017-10-06] MEDS ORDERED: HYDROCODONE/ACETAMINOPHEN 5-325 MG TABLET PO ONE (17:00)
== END 2017-10-06 17:24 | disposition home or self-care (01) ==
LOC: EMS 13:28
DX: R10.84 Generalized abdominal pain (principal); I10 Essential (primary) hypertension; K21.9 Gastro-esophageal reflux disease without esophagitis
CPT/HCPCS: 74022; 87086; 99285

== ENCOUNTER 2017-10-08 12:13 | Emergency (ER) | payer MEDICARE, OTHER ==
[~2017-10-08] VITALS: Ht 172.7 cm; Wt 81.8 kg
[2017-10-08] MEDS ORDERED: QUET25TA PO (12:45)
[2017-10-08] MEDS ORDERED: OXYC10 PO (12:45)
[2017-10-08] MEDS ORDERED: TRAZ-219 PO (12:45)
[2017-10-08] MEDS ORDERED: LANS30 PO (12:45)
[2017-10-08] MEDS ORDERED: GABA-531 PO (12:45)
[2017-10-08] MEDS ORDERED: PROP10TA73 PO (12:45)
[2017-10-08 13:21] LABS: BASOPHILS % (AUTO) 0.8 % (0.0-2.0); EOSINOPHILS % (AUTO) 0.1 % (1.0-6.0); HEMATOCRIT 33.1 % (36-46); HEMOGLOBIN 11.3 g/dL (12.0-16.0); LYMPHOCYTES # (AUTO) 2.2 K/uL (1.0-4.8); LYMPHOCYTES % (AUTO) 26.9 % (22.0-44.0); MEAN CORPUSCULAR HEMOGLOBIN 33.1 pg (26.0-34.0); MEAN CORPUSCULAR HGB CONC 34.1 G/dL (31.0-37.0); MEAN CORPUSCULAR VOLUME 97 fL (80-100); MONOCYTES # (AUTO) 0.5 K/uL (0.1-1.0); MONOCYTES % (AUTO) 6.2 % (2.0-9.0); NEUTROPHILS # (AUTO) 5.5 K/uL (1.8-7.7); PLATELET COUNT (AUTO) 681 K/uL (150-450); RED CELL DISTRIBUTION WIDTH 14.8 % (11.5-14.5)
[2017-10-08 13:32] LABS: ANION GAP 9 mmol/L (8-16); CALCIUM, TOTAL 8.4 mg/dL (8.8-10.5); CARBON DIOXIDE 25 mmol/L (22-29); CHLORIDE 103 mmol/L (98-107); GLOMERULAR FILTR. RATE CALC > 60 mL/min (>60); GLUCOSE,RANDOM 135 mg/dL (70-110); POTASSIUM 4.2 mmol/L (3.5-5.1); SODIUM SERUM 137 mmol/L (136-145); UREA NITROGEN, BLOOD 19 mg/dL (7-18)
[2017-10-08 13:32] LABS: APPEARANCE,URINE CLOUDY (CLEAR); BILIRUBIN,URINE NEGATIVE (NEGATIVE); GLUCOSE, URINE (UA) NEGATIVE (NEGATIVE); KETONES,URINE NEGATIVE (NEGATIVE); LEUKOCYTE ESTERASE ,URINE SMALL (NEGATIVE); NITRATE,URINE NEGATIVE (NEGATIVE); OCCULT BLOOD,URINE NEGATIVE (NEGATIVE); PH,URINE 6.5 (5.0-8.0); PROTEIN,URINE TRACE (NEGATIVE); UROBILINOGEN,URINE 0.2 mg/dL (<=1.0)
[2017-10-08 13:38] LABS: ALANINE AMINOTRANSFERASE 18 U/L (12-78); ALBUMIN 3.2 g/dL (3.4-5.0); ALKALINE PHOSPHATASE 104 U/L (46-116); ASPARTATE AMINOTRANSFERASE 13 U/L (15-37); BILIRUBIN,TOTAL 0.2 mg/dL (0.1-1.0); LIPASE 94 U/L (73-393); TOTAL PROTEIN, SERUM 6.1 g/dL (6.4-8.2)
[2017-10-08 13:52] LABS: BACTERIA,URINE Rare /HPF (None Seen)
[2017-10-08 13:53] LABS: MUCUS,URINE Moderate LPF (None Seen); SQUAMOUS EPITHELIAL CELL,UR Moderate /LPF (None Seen)
[2017-10-08] MEDS ORDERED: LORazepam 2 MG/ML VIAL IVP ONE (14:15)
[2017-10-08] MEDS ORDERED: KETOROLAC TROMETHAMINE 30 MG/ML VIAL IVP ONE (14:15)
[2017-10-08] MEDS ORDERED: METOCLOPRAMIDE HCL 5 MG/ML 2 ML VIAL IVP ONE (14:15)
[2017-10-08 15:45] VITALS: BP 117/80
== END 2017-10-08 15:45 | disposition home or self-care (01) ==
LOC: EMS 12:15
DX: R10.84 Generalized abdominal pain (principal); F25.9 Schizoaffective disorder, unspecified; F41.9 Anxiety disorder, unspecified; G89.29 Other chronic pain; L30.9 Dermatitis, unspecified; R11.10 Vomiting, unspecified; F31.9 Bipolar disorder, unspecified; K21.9 Gastro-esophageal reflux disease without esophagitis; I10 Essential (primary) hypertension; F19.90 Other psychoactive substance use, unspecified, uncomplicated
CPT/HCPCS: 36415; 80053; 81001; 83690; 84484; 85025; 87086; 93005; 96374; 96375; 99285; J1885; J2060; J2765

== ENCOUNTER 2017-10-10 19:40 | Inpatient (IN) | payer MEDICARE, MEDICAID ==
[~2017-10-10] VITALS: Ht 172.7 cm; Wt 72.2 kg
[~2017-10-10 19:40] MED LIST changes: -APIX5TAB PO; -DIVA-78 PO; -FAMO20 PO; +GABA-531 PO; +LANS30 PO; -LITH300C3 PO; -MAGOX PO; +OXYC10 PO; -PANT40TA25 PO; +PROP10TA73 PO; +QUET25TA PO; +TRAZ-219 PO
[2017-10-10 20:13] LABS: EOSINOPHILS % (AUTO) 1.1 % (1.0-6.0); HEMATOCRIT 30.5 % (36-46); HEMOGLOBIN 10.5 g/dL (12.0-16.0); LYMPHOCYTES # (AUTO) 2.7 K/uL (1.0-4.8); LYMPHOCYTES % (AUTO) 25.5 % (22.0-44.0); MEAN CORPUSCULAR HEMOGLOBIN 33.2 pg (26.0-34.0); MEAN CORPUSCULAR HGB CONC 34.3 G/dL (31.0-37.0); MEAN CORPUSCULAR VOLUME 97 fL (80-100); MONOCYTES # (AUTO) 1.1 K/uL (0.1-1.0); MONOCYTES % (AUTO) 10.6 % (2.0-9.0); NEUTROPHILS # (AUTO) 6.6 K/uL (1.8-7.7); NEUTROPHILS % (AUTO) 61.8 % (40.0-70.0); PLATELET COUNT (AUTO) 609 K/uL (150-450); RED BLOOD CELL COUNT(AUTO) 3.15 MIL/uL (4.00-5.20); RED CELL DISTRIBUTION WIDTH 14.8 % (11.5-14.5)
[2017-10-10 20:22] LABS: ANION GAP 11 mmol/L (8-16); CALCIUM, TOTAL 8.4 mg/dL (8.8-10.5); CARBON DIOXIDE 22 mmol/L (22-29); CHLORIDE 106 mmol/L (98-107); CREATININE 0.88 mg/dL (0.60-1.30); GLOMERULAR FILTR. RATE CALC > 60 mL/min (>60); GLUCOSE,RANDOM 136 mg/dL (70-110); POTASSIUM 3.2 mmol/L (3.5-5.1); SODIUM SERUM 139 mmol/L (136-145); UREA NITROGEN, BLOOD 20 mg/dL (7-18)
[2017-10-10 20:28] LABS: ALANINE AMINOTRANSFERASE 17 U/L (12-78); ALKALINE PHOSPHATASE 107 U/L (46-116); ASPARTATE AMINOTRANSFERASE 12 U/L (15-37); BILIRUBIN,TOTAL 0.2 mg/dL (0.1-1.0); TOTAL PROTEIN, SERUM 5.9 g/dL (6.4-8.2)
[2017-10-10 21:09] LABS: AMPHET/METH SCREEN,URINE NEGATIVE (NEGATIVE); BARBITURATE SCREEN, URINE NEGATIVE (NEGATIVE); BENZODIAZEPINES SCREEN,URINE NEGATIVE (NEGATIVE); CANNABINOID SCREEN,URINE NEGATIVE (NEGATIVE); COCAINE SCREEN,URINE NEGATIVE (NEGATIVE); METHADONE SCREEN, URINE NEGATIVE (NEGATIVE); OPIATE SCREEN,URINE POSITIVE (NEGATIVE); PHENCYCLIDINE SCREEN,URINE NEGATIVE (NEGATIVE)
[2017-10-11] MEDS ORDERED: LORazepam 2 MG TABLET PO ONE
[2017-10-11] MEDS ORDERED: LORazepam 1 MG TABLET PO ONE
[2017-10-11] MEDS ORDERED: DiphenhydrAMINE HCL 25 MG CAPSULE PO ONE
[2017-10-11] MEDS ORDERED: HALOPERIDOL 5 MG TABLET PO ONE
[2017-10-11] MEDS ORDERED: ZOLPIDEM TARTRATE 10 MG TABLET PO PRN (06:30)
[2017-10-11] MEDS ORDERED: LORazepam 2 MG TABLET PO PRN (06:30)
[2017-10-11 09:15] VITALS: BP 128/82
[2017-10-11] MEDS: QUEtiapine FUMARATE 100 MG TABLET PO PRN (14:16)
[2017-10-11 16:46] VITALS: BP 142/99
[2017-10-11] MEDS: FAMOTIDINE 20 MG TABLET PO SCH (17:03)
[2017-10-11] MEDS: APIXABAN 5 MG TABLET PO SCH (17:03)
[2017-10-11] MEDS: GABAPENTIN 300 MG CAPSULE PO SCH (20:07)
[2017-10-11] MEDS: ARIPiprazole 5 MG TABLET PO SCH (20:07)
[2017-10-11] MEDS: TEMAZEPAM 15 MG CAPSULE PO PRN (20:09)
[2017-10-12] MEDS: GABAPENTIN 300 MG CAPSULE PO SCH ×4 (07:02→20:05)
[2017-10-12] MEDS: AmLODIPine BESYLATE 10 MG TABLET PO SCH (08:04)
[2017-10-12] MEDS: APIXABAN 5 MG TABLET PO SCH ×2 (08:04→16:46)
[2017-10-12] MEDS: FAMOTIDINE 20 MG TABLET PO SCH ×2 (08:04→16:46)
[2017-10-12] MEDS: CarBAMazepine 200 MG TABLET PO SCH ×2 (08:04→16:46)
[2017-10-12 08:05] VITALS: BP 135/90
[2017-10-12] MEDS: LORazepam 0.5 MG TABLET PO PRN ×2 (08:06→12:10)
[2017-10-12] MEDS: LEVOFLOXACIN 500 MG TABLET PO SCH (16:46)
[2017-10-12 18:35] VITALS: BP 140/85
[2017-10-12] MEDS: ACETAMINOPHEN 325 MG TABLET PO PRN (18:41)
[2017-10-12] MEDS: TEMAZEPAM 15 MG CAPSULE PO PRN (20:04)
[2017-10-12] MEDS: ARIPiprazole 5 MG TABLET PO SCH (20:05)
[2017-10-13] MEDS: GABAPENTIN 300 MG CAPSULE PO SCH ×4 (06:37→20:10)
[2017-10-13] MEDS: APIXABAN 5 MG TABLET PO SCH ×2 (08:01→16:14)
[2017-10-13] MEDS: LEVOFLOXACIN 500 MG TABLET PO SCH (08:01)
[2017-10-13] MEDS: AmLODIPine BESYLATE 10 MG TABLET PO SCH (08:01)
[2017-10-13] MEDS: FAMOTIDINE 20 MG TABLET PO SCH ×2 (08:01→16:14)
[2017-10-13] MEDS: CarBAMazepine 200 MG TABLET PO SCH ×2 (08:01→16:14)
[2017-10-13 08:05] VITALS: BP 147/96
[2017-10-13 11:46] VITALS: BP 129/79
[2017-10-13] MEDS: ACETAMINOPHEN 325 MG TABLET PO PRN (11:46)
[2017-10-13] MEDS: LORazepam 0.5 MG TABLET PO PRN (12:05)
[2017-10-13 17:22] VITALS: BP 96/53
[2017-10-13] MEDS: ARIPiprazole 5 MG TABLET PO SCH (20:10)
[2017-10-13] MEDS: LOPERAMIDE HCL 2 MG CAPSULE PO PRN (20:10)
[2017-10-13] MEDS: TEMAZEPAM 15 MG CAPSULE PO PRN (20:11)
[2017-10-14] MEDS: ACETAMINOPHEN 325 MG TABLET PO PRN ×2 (02:13→16:10)
[2017-10-14 02:20] VITALS: BP 123/76
[2017-10-14] MEDS: GABAPENTIN 300 MG CAPSULE PO SCH ×4 (06:52→19:55)
[2017-10-14] MEDS: FAMOTIDINE 20 MG TABLET PO SCH ×2 (07:54→16:07)
[2017-10-14] MEDS: LEVOFLOXACIN 500 MG TABLET PO SCH (07:54)
[2017-10-14] MEDS: CarBAMazepine 200 MG TABLET PO SCH ×2 (07:55→16:07)
[2017-10-14] MEDS: APIXABAN 5 MG TABLET PO SCH ×2 (07:55→16:07)
[2017-10-14] MEDS: AmLODIPine BESYLATE 10 MG TABLET PO SCH (07:55)
[2017-10-14] MEDS: LOPERAMIDE HCL 2 MG CAPSULE PO PRN ×2 (08:49→19:56)
[2017-10-14 09:04] VITALS: BP 124/72
[2017-10-14] MEDS: LORazepam 0.5 MG TABLET PO PRN (11:00)
[2017-10-14 16:10] VITALS: BP 118/67
[2017-10-14 17:10] VITALS: BP 110/63
[2017-10-14] MEDS: TEMAZEPAM 15 MG CAPSULE PO PRN (19:55)
[2017-10-14] MEDS: ARIPiprazole 5 MG TABLET PO SCH (19:55)
[2017-10-15] MEDS: GABAPENTIN 300 MG CAPSULE PO SCH ×3 (06:44→16:18)
[2017-10-15] MEDS: LORazepam 0.5 MG TABLET PO PRN ×2 (09:24→20:17)
[2017-10-15] MEDS: APIXABAN 5 MG TABLET PO SCH ×2 (09:24→16:19)
[2017-10-15] MEDS: CarBAMazepine 200 MG TABLET PO SCH ×2 (09:24→16:19)
[2017-10-15] MEDS: AmLODIPine BESYLATE 10 MG TABLET PO SCH (09:24)
[2017-10-15] MEDS: QUEtiapine FUMARATE 100 MG TABLET PO PRN (09:24)
[2017-10-15] MEDS: CYCLOBENZAPRINE HCL 10 MG TABLET PO PRN (09:25)
[2017-10-15] MEDS: FAMOTIDINE 20 MG TABLET PO SCH ×2 (09:25→16:19)
[2017-10-15] MEDS: LEVOFLOXACIN 500 MG TABLET PO SCH (09:25)
[2017-10-15 09:28] VITALS: BP 105/73
[2017-10-15] MEDS: IBUPROFEN 600 MG TABLET PO PRN (09:28)
[2017-10-15 09:47] VITALS: BP 105/73
[2017-10-15 16:17] VITALS: BP 101/64
[2017-10-15] MEDS: CHOLECALCIFEROL (VIT D3) 1,000 UNITS TABLET PO SCH (16:19)
[2017-10-15] MEDS: ARIPiprazole 5 MG TABLET PO SCH (20:13)
[2017-10-15] MEDS: GABAPENTIN 400 MG CAPSULE PO SCH (20:20)
[2017-10-16 02:50] VITALS: BP 139/76
[2017-10-16] MEDS: IBUPROFEN 600 MG TABLET PO PRN ×2 (02:56→15:07)
[2017-10-16] MEDS: GABAPENTIN 400 MG CAPSULE PO SCH ×3 (06:50→20:48)
[2017-10-16] MEDS ORDERED: POTASSIUM CHLORIDE 20 MEQ ER TABLET PO ONE (09:15)
[2017-10-16 09:18] VITALS: BP 136/95
[2017-10-16] MEDS: CHOLECALCIFEROL (VIT D3) 1,000 UNITS TABLET PO SCH ×2 (09:42→16:37)
[2017-10-16] MEDS: AmLODIPine BESYLATE 10 MG TABLET PO SCH (09:42)
[2017-10-16] MEDS: CarBAMazepine 200 MG TABLET PO SCH ×2 (09:43→16:37)
[2017-10-16] MEDS: APIXABAN 5 MG TABLET PO SCH ×2 (09:43→16:35)
[2017-10-16] MEDS: LEVOFLOXACIN 500 MG TABLET PO SCH (09:43)
[2017-10-16] MEDS: FAMOTIDINE 20 MG TABLET PO SCH ×2 (09:43→16:35)
[2017-10-16 10:07] LABS: BILIRUBIN,URINE NEGATIVE (NEGATIVE); GLUCOSE, URINE (UA) NEGATIVE (NEGATIVE); KETONES,URINE NEGATIVE (NEGATIVE); LEUKOCYTE ESTERASE ,URINE SMALL (NEGATIVE); NITRATE,URINE NEGATIVE (NEGATIVE); OCCULT BLOOD,URINE NEGATIVE (NEGATIVE); PH,URINE 6.5 (5.0-8.0); PROTEIN,URINE NEGATIVE (NEGATIVE); UROBILINOGEN,URINE 0.2 mg/dL (<=1.0)
[2017-10-16 10:10] LABS: APPEARANCE,URINE SLIGHTLY CLOUDY (CLEAR)
[2017-10-16 10:11] LABS: RBC,URINE None Seen /HPF (0-2)
[2017-10-16 10:15] LABS: BACTERIA,URINE None Seen /HPF (None Seen); SQUAMOUS EPITHELIAL CELL,UR Moderate /LPF (None Seen)
[2017-10-16] MEDS: LORazepam 0.5 MG TABLET PO PRN ×2 (12:55→19:16)
[2017-10-16 16:07] VITALS: BP 128/88
[2017-10-16] MEDS: ARIPiprazole 5 MG TABLET PO SCH (20:48)
[2017-10-17] MEDS: TEMAZEPAM 15 MG CAPSULE PO PRN ×2 (00:39→20:11)
[2017-10-17 02:18] VITALS: BP 134/76
[2017-10-17] MEDS: GABAPENTIN 400 MG CAPSULE PO SCH ×3 (06:36→20:10)
[2017-10-17 07:53] LABS: ALANINE AMINOTRANSFERASE 19 U/L (12-78); ALBUMIN 2.8 g/dL (3.4-5.0); ALKALINE PHOSPHATASE 111 U/L (46-116); ANION GAP 7 mmol/L (8-16); ASPARTATE AMINOTRANSFERASE 15 U/L (15-37); BILIRUBIN,TOTAL 0.2 mg/dL (0.1-1.0); CALCIUM, TOTAL 8.6 mg/dL (8.8-10.5); CARBON DIOXIDE 25 mmol/L (22-29); CHLORIDE 104 mmol/L (98-107); CREATINE KINASE, TOTAL 18 U/L (26-192); CREATININE 0.76 mg/dL (0.60-1.30); GLOMERULAR FILTR. RATE CALC > 60 mL/min (>60); GLUCOSE,RANDOM 104 mg/dL (70-110); POTASSIUM 4.2 mmol/L (3.5-5.1); SODIUM SERUM 136 mmol/L (136-145); UREA NITROGEN, BLOOD 20 mg/dL (7-18)
[2017-10-17 08:42] VITALS: BP 128/88
[2017-10-17] MEDS: APIXABAN 5 MG TABLET PO SCH ×3 (09:00→17:00)
[2017-10-17] MEDS: NYSTATIN 15 GM POWDER BOTTLE TP SCH ×2 (09:00→16:08)
[2017-10-17] MEDS: LORazepam 0.5 MG TABLET PO PRN ×3 (09:09→20:16)
[2017-10-17] MEDS: CHOLECALCIFEROL (VIT D3) 1,000 UNITS TABLET PO SCH ×2 (09:09→16:07)
[2017-10-17] MEDS: FAMOTIDINE 20 MG TABLET PO SCH ×2 (09:09→16:07)
[2017-10-17] MEDS: AmLODIPine BESYLATE 10 MG TABLET PO SCH (09:09)
[2017-10-17] MEDS: CarBAMazepine 200 MG TABLET PO SCH ×2 (09:09→16:07)
[2017-10-17] MEDS: IBUPROFEN 600 MG TABLET PO PRN (09:09)
[2017-10-17] MEDS: LEVOFLOXACIN 500 MG TABLET PO SCH (09:09)
[2017-10-17 18:41] VITALS: BP 139/45
[2017-10-17] MEDS: ARIPiprazole 5 MG TABLET PO SCH (20:10)
[2017-10-18] MEDS: IBUPROFEN 600 MG TABLET PO PRN (03:28)
[2017-10-18 03:30] VITALS: BP 137/109
[2017-10-18] MEDS: GABAPENTIN 400 MG CAPSULE PO SCH ×3 (06:52→21:12)
[2017-10-18] MEDS: CarBAMazepine 200 MG TABLET PO SCH ×2 (08:05→16:18)
[2017-10-18] MEDS: LEVOFLOXACIN 500 MG TABLET PO SCH (08:05)
[2017-10-18] MEDS: CHOLECALCIFEROL (VIT D3) 1,000 UNITS TABLET PO SCH ×2 (08:05→16:18)
[2017-10-18] MEDS: FAMOTIDINE 20 MG TABLET PO SCH ×2 (08:05→16:18)
[2017-10-18] MEDS: AmLODIPine BESYLATE 10 MG TABLET PO SCH (08:05)
[2017-10-18] MEDS: APIXABAN 5 MG TABLET PO SCH ×2 (08:05→16:17)
[2017-10-18 09:05] VITALS: BP 136/78
[2017-10-18] MEDS: NYSTATIN 15 GM POWDER BOTTLE TP SCH ×2 (09:10→16:18)
[2017-10-18 17:08] VITALS: BP 142/72
[2017-10-18] MEDS: ARIPiprazole 5 MG TABLET PO SCH (20:34)
[2017-10-18] MEDS: LORazepam 0.5 MG TABLET PO PRN (20:35)
[2017-10-18] MEDS: TEMAZEPAM 15 MG CAPSULE PO PRN (21:50)
[2017-10-19 02:57] VITALS: BP 148/76
[2017-10-19] MEDS: GABAPENTIN 400 MG CAPSULE PO SCH ×3 (06:10→20:39)
[2017-10-19 09:50] VITALS: BP 131/93
[2017-10-19] MEDS: FAMOTIDINE 20 MG TABLET PO SCH ×2 (09:52→16:14)
[2017-10-19] MEDS: LEVOFLOXACIN 500 MG TABLET PO SCH (09:52)
[2017-10-19] MEDS: ARIPiprazole 5 MG TABLET PO SCH ×2 (09:52→20:39)
[2017-10-19] MEDS: QUEtiapine FUMARATE 100 MG TABLET PO PRN (09:52)
[2017-10-19] MEDS: CHOLECALCIFEROL (VIT D3) 1,000 UNITS TABLET PO SCH ×2 (09:52→16:13)
[2017-10-19] MEDS: AmLODIPine BESYLATE 10 MG TABLET PO SCH (09:52)
[2017-10-19] MEDS: APIXABAN 5 MG TABLET PO SCH ×2 (09:52→16:14)
[2017-10-19] MEDS: LORazepam 0.5 MG TABLET PO PRN ×3 (09:53→20:38)
[2017-10-19] MEDS: CYCLOBENZAPRINE HCL 10 MG TABLET PO PRN (09:54)
[2017-10-19] MEDS: CarBAMazepine 200 MG TABLET PO SCH ×2 (09:54→16:14)
[2017-10-19] MEDS: NYSTATIN 15 GM POWDER BOTTLE TP SCH ×2 (09:55→16:14)
[2017-10-19 20:56] VITALS: BP 126/70
[2017-10-19] MEDS: TEMAZEPAM 15 MG CAPSULE PO PRN (22:05)
[2017-10-20 01:00] VITALS: BP 117/83
[2017-10-20] MEDS: QUEtiapine FUMARATE 100 MG TABLET PO PRN ×2 (01:09→09:36)
[2017-10-20] MEDS: GABAPENTIN 400 MG CAPSULE PO SCH ×3 (07:00→20:11)
[2017-10-20 09:02] VITALS: BP 145/79
[2017-10-20 09:35] VITALS: BP 145/77
[2017-10-20] MEDS: CHOLECALCIFEROL (VIT D3) 1,000 UNITS TABLET PO SCH ×2 (09:35→16:34)
[2017-10-20] MEDS: APIXABAN 5 MG TABLET PO SCH ×2 (09:35→16:34)
[2017-10-20] MEDS: FAMOTIDINE 20 MG TABLET PO SCH ×2 (09:35→16:34)
[2017-10-20] MEDS: CarBAMazepine 200 MG TABLET PO SCH ×2 (09:35→16:34)
[2017-10-20] MEDS: ARIPiprazole 5 MG TABLET PO SCH ×2 (09:35→20:11)
[2017-10-20] MEDS: AmLODIPine BESYLATE 10 MG TABLET PO SCH (09:35)
[2017-10-20] MEDS: IBUPROFEN 600 MG TABLET PO PRN (09:36)
[2017-10-20] MEDS: LORazepam 0.5 MG TABLET PO PRN ×2 (09:36→16:34)
[2017-10-20] MEDS: CYCLOBENZAPRINE HCL 10 MG TABLET PO PRN (09:37)
[2017-10-20] MEDS: NYSTATIN 15 GM POWDER BOTTLE TP SCH ×2 (09:54→16:35)
[2017-10-20 19:39] VITALS: BP 133/75
[2017-10-21] MEDS: TEMAZEPAM 15 MG CAPSULE PO PRN ×2 (00:14→21:56)
[2017-10-21 00:18] VITALS: BP 124/73
[2017-10-21 04:15] VITALS: BP 141/75
[2017-10-21] MEDS: IBUPROFEN 600 MG TABLET PO PRN (04:19)
[2017-10-21] MEDS: GABAPENTIN 400 MG CAPSULE PO SCH ×3 (06:42→20:56)
[2017-10-21 09:10] VITALS: BP 145/80
[2017-10-21] MEDS: LORazepam 0.5 MG TABLET PO PRN ×3 (09:12→21:56)
[2017-10-21] MEDS: CYCLOBENZAPRINE HCL 10 MG TABLET PO PRN (09:12)
[2017-10-21] MEDS: QUEtiapine FUMARATE 100 MG TABLET PO PRN (09:12)
[2017-10-21] MEDS: CHOLECALCIFEROL (VIT D3) 1,000 UNITS TABLET PO SCH ×2 (09:12→16:15)
[2017-10-21] MEDS: AmLODIPine BESYLATE 10 MG TABLET PO SCH (09:13)
[2017-10-21] MEDS: FAMOTIDINE 20 MG TABLET PO SCH ×2 (09:13→16:15)
[2017-10-21] MEDS: APIXABAN 5 MG TABLET PO SCH ×2 (09:13→16:15)
[2017-10-21] MEDS: CarBAMazepine 200 MG TABLET PO SCH ×2 (09:13→16:15)
[2017-10-21] MEDS: ARIPiprazole 5 MG TABLET PO SCH ×2 (09:13→20:56)
[2017-10-21] MEDS: NYSTATIN 15 GM POWDER BOTTLE TP SCH ×2 (10:10→16:15)
[2017-10-21 17:19] VITALS: BP 120/76
[2017-10-22 02:01] VITALS: BP 123/77
[2017-10-22] MEDS: IBUPROFEN 600 MG TABLET PO PRN (02:02)
[2017-10-22] MEDS: GABAPENTIN 400 MG CAPSULE PO SCH ×3 (07:02→20:08)
[2017-10-22 07:49] LABS: ALANINE AMINOTRANSFERASE 18 U/L (12-78); ALBUMIN 2.7 g/dL (3.4-5.0); ALKALINE PHOSPHATASE 143 U/L (46-116); ANION GAP 9 mmol/L (8-16); ASPARTATE AMINOTRANSFERASE 12 U/L (15-37); BILIRUBIN,TOTAL 0.2 mg/dL (0.1-1.0); CALCIUM, TOTAL 8.7 mg/dL (8.8-10.5); CARBON DIOXIDE 26 mmol/L (22-29); CHLORIDE 101 mmol/L (98-107); CREATINE KINASE, TOTAL 14 U/L (26-192); CREATININE 0.79 mg/dL (0.60-1.30); GLOMERULAR FILTR. RATE CALC > 60 mL/min (>60); GLUCOSE,RANDOM 97 mg/dL (70-110); POTASSIUM 4.2 mmol/L (3.5-5.1); SODIUM SERUM 136 mmol/L (136-145); UREA NITROGEN, BLOOD 19 mg/dL (7-18)
[2017-10-22 09:05] VITALS: BP 137/80
[2017-10-22] MEDS: QUEtiapine FUMARATE 100 MG TABLET PO PRN (09:07)
[2017-10-22] MEDS: ARIPiprazole 5 MG TABLET PO SCH ×2 (09:07→20:09)
[2017-10-22] MEDS: LORazepam 0.5 MG TABLET PO PRN (09:07)
[2017-10-22] MEDS: FAMOTIDINE 20 MG TABLET PO SCH ×2 (09:08→16:12)
[2017-10-22] MEDS: CHOLECALCIFEROL (VIT D3) 1,000 UNITS TABLET PO SCH ×2 (09:08→16:12)
[2017-10-22] MEDS: CarBAMazepine 200 MG TABLET PO SCH ×2 (09:08→16:11)
[2017-10-22] MEDS: APIXABAN 5 MG TABLET PO SCH ×2 (09:08→16:11)
[2017-10-22] MEDS: AmLODIPine BESYLATE 10 MG TABLET PO SCH (09:08)
[2017-10-22] MEDS: CYCLOBENZAPRINE HCL 10 MG TABLET PO PRN (09:09)
[2017-10-22] MEDS: NYSTATIN 15 GM POWDER BOTTLE TP SCH ×2 (09:16→16:12)
[2017-10-22 16:00] VITALS: BP 137/91
[2017-10-23] MEDS: IBUPROFEN 600 MG TABLET PO PRN (04:59)
[2017-10-23] MEDS: GABAPENTIN 400 MG CAPSULE PO SCH ×2 (06:37→14:00)
[2017-10-23 08:30] VITALS: BP 157/88
[2017-10-23 09:05] VITALS: BP 157/88
[2017-10-23] MEDS: LORazepam 0.5 MG TABLET PO PRN ×3 (09:07→21:47)
[2017-10-23] MEDS: CarBAMazepine 200 MG TABLET PO SCH ×2 (09:08→16:11)
[2017-10-23] MEDS: APIXABAN 5 MG TABLET PO SCH ×2 (09:08→16:11)
[2017-10-23] MEDS: QUEtiapine FUMARATE 100 MG TABLET PO PRN (09:08)
[2017-10-23] MEDS: FAMOTIDINE 20 MG TABLET PO SCH ×2 (09:08→16:11)
[2017-10-23] MEDS: CHOLECALCIFEROL (VIT D3) 1,000 UNITS TABLET PO SCH ×2 (09:08→16:11)
[2017-10-23] MEDS: CYCLOBENZAPRINE HCL 10 MG TABLET PO PRN (09:08)
[2017-10-23] MEDS: ARIPiprazole 5 MG TABLET PO SCH ×2 (09:08→20:28)
[2017-10-23] MEDS: AmLODIPine BESYLATE 10 MG TABLET PO SCH (09:08)
[2017-10-23] MEDS: NYSTATIN 15 GM POWDER BOTTLE TP SCH ×2 (10:25→16:11)
[2017-10-23 16:54] VITALS: BP 148/79
[2017-10-23] MEDS: GABAPENTIN 300 MG CAPSULE PO SCH (20:27)
[2017-10-23] MEDS: DOCUSATE SODIUM 250 MG CAPSULE PO SCH (20:28)
[2017-10-23] MEDS: TEMAZEPAM 15 MG CAPSULE PO PRN (21:48)
[2017-10-24] MEDS: GABAPENTIN 300 MG CAPSULE PO SCH ×3 (06:43→20:12)
[2017-10-24 09:05] VITALS: BP 136/82
[2017-10-24] MEDS: ARIPiprazole 5 MG TABLET PO SCH ×2 (09:05→20:12)
[2017-10-24] MEDS: CHOLECALCIFEROL (VIT D3) 1,000 UNITS TABLET PO SCH ×2 (09:05→16:15)
[2017-10-24] MEDS: QUEtiapine FUMARATE 100 MG TABLET PO PRN (09:05)
[2017-10-24] MEDS: LORazepam 0.5 MG TABLET PO PRN (09:05)
[2017-10-24] MEDS: AmLODIPine BESYLATE 10 MG TABLET PO SCH (09:05)
[2017-10-24] MEDS: CarBAMazepine 200 MG TABLET PO SCH ×2 (09:05→16:14)
[2017-10-24] MEDS: FAMOTIDINE 20 MG TABLET PO SCH ×2 (09:06→16:14)
[2017-10-24] MEDS: APIXABAN 5 MG TABLET PO SCH ×2 (09:06→16:15)
[2017-10-24] MEDS: CYCLOBENZAPRINE HCL 10 MG TABLET PO PRN (09:06)
[2017-10-24] MEDS: NYSTATIN 15 GM POWDER BOTTLE TP SCH ×2 (09:47→16:14)
[2017-10-24 16:00] VITALS: BP 114/81
[2017-10-24] MEDS: DOCUSATE SODIUM 250 MG CAPSULE PO SCH (20:12)
[2017-10-24] MEDS: TEMAZEPAM 15 MG CAPSULE PO PRN (22:49)
[2017-10-25 04:05] VITALS: BP 143/101
[2017-10-25] MEDS: IBUPROFEN 600 MG TABLET PO PRN (04:59)
[2017-10-25] MEDS: GABAPENTIN 300 MG CAPSULE PO SCH ×3 (06:49→20:31)
[2017-10-25] MEDS: CHOLECALCIFEROL (VIT D3) 1,000 UNITS TABLET PO SCH ×2 (08:25→16:21)
[2017-10-25] MEDS: AmLODIPine BESYLATE 10 MG TABLET PO SCH (08:25)
[2017-10-25] MEDS: CarBAMazepine 200 MG TABLET PO SCH ×2 (08:25→16:20)
[2017-10-25] MEDS: ARIPiprazole 5 MG TABLET PO SCH ×2 (08:25→20:31)
[2017-10-25] MEDS: LORazepam 0.5 MG TABLET PO PRN ×2 (08:26→16:20)
[2017-10-25] MEDS: NYSTATIN 15 GM POWDER BOTTLE TP SCH ×2 (08:26→16:20)
[2017-10-25] MEDS: FAMOTIDINE 20 MG TABLET PO SCH ×2 (08:26→16:20)
[2017-10-25] MEDS: APIXABAN 5 MG TABLET PO SCH ×2 (08:26→16:20)
[2017-10-25 08:30] VITALS: BP 146/95
[2017-10-25 17:16] VITALS: BP 135/75
[2017-10-25] MEDS: DOCUSATE SODIUM 250 MG CAPSULE PO SCH (20:31)
[2017-10-25] MEDS: TEMAZEPAM 15 MG CAPSULE PO PRN (20:31)
[2017-10-26 04:45] VITALS: BP 131/79
[2017-10-26] MEDS: IBUPROFEN 600 MG TABLET PO PRN (04:46)
[2017-10-26] MEDS: GABAPENTIN 300 MG CAPSULE PO SCH ×4 (07:14→20:15)
[2017-10-26 08:42] VITALS: BP 124/72
[2017-10-26] MEDS: CHOLECALCIFEROL (VIT D3) 1,000 UNITS TABLET PO SCH ×2 (09:01→16:18)
[2017-10-26] MEDS: ARIPiprazole 5 MG TABLET PO SCH ×2 (09:01→20:15)
[2017-10-26] MEDS: NYSTATIN 15 GM POWDER BOTTLE TP SCH ×2 (09:02→16:19)
[2017-10-26] MEDS: APIXABAN 5 MG TABLET PO SCH ×2 (09:02→16:18)
[2017-10-26] MEDS: CarBAMazepine 200 MG TABLET PO SCH ×2 (09:02→16:18)
[2017-10-26] MEDS: FAMOTIDINE 20 MG TABLET PO SCH ×2 (09:02→16:18)
[2017-10-26] MEDS: AmLODIPine BESYLATE 10 MG TABLET PO SCH (09:02)
[2017-10-26] MEDS: LORazepam 0.5 MG TABLET PO PRN ×2 (10:11→16:17)
[2017-10-26 17:15] VITALS: BP 142/89
[2017-10-26] MEDS: DOCUSATE SODIUM 250 MG CAPSULE PO SCH (20:15)
[2017-10-26] MEDS: TEMAZEPAM 15 MG CAPSULE PO PRN (20:17)
[2017-10-27 05:57] VITALS: BP 136/90
[2017-10-27] MEDS: ACETAMINOPHEN 325 MG TABLET PO PRN (05:57)
[2017-10-27] MEDS: GABAPENTIN 300 MG CAPSULE PO SCH ×2 (06:05→12:38)
[2017-10-27 07:09] LABS: ALANINE AMINOTRANSFERASE 18 U/L (12-78); ALBUMIN 2.7 g/dL (3.4-5.0); ALKALINE PHOSPHATASE 152 U/L (46-116); ANION GAP 8 mmol/L (8-16); ASPARTATE AMINOTRANSFERASE 13 U/L (15-37); BILIRUBIN,TOTAL 0.2 mg/dL (0.1-1.0); CALCIUM, TOTAL 8.7 mg/dL (8.8-10.5); CARBON DIOXIDE 24 mmol/L (22-29); CHLORIDE 103 mmol/L (98-107); CREATINE KINASE, TOTAL 12 U/L (26-192); CREATININE 0.75 mg/dL (0.60-1.30); GLOMERULAR FILTR. RATE CALC > 60 mL/min (>60); GLUCOSE,RANDOM 147 mg/dL (70-110); POTASSIUM 3.8 mmol/L (3.5-5.1); SODIUM SERUM 135 mmol/L (136-145); TOTAL PROTEIN, SERUM 5.9 g/dL (6.4-8.2); UREA NITROGEN, BLOOD 22 mg/dL (7-18)
[2017-10-27] MEDS: CHOLECALCIFEROL (VIT D3) 1,000 UNITS TABLET PO SCH ×2 (08:07→16:11)
[2017-10-27] MEDS: LORazepam 0.5 MG TABLET PO PRN ×2 (08:08→16:16)
[2017-10-27] MEDS: AmLODIPine BESYLATE 10 MG TABLET PO SCH (08:08)
[2017-10-27] MEDS: APIXABAN 5 MG TABLET PO SCH ×2 (08:08→16:11)
[2017-10-27] MEDS: ARIPiprazole 5 MG TABLET PO SCH (08:08)
[2017-10-27] MEDS: FAMOTIDINE 20 MG TABLET PO SCH (08:08)
[2017-10-27] MEDS: CarBAMazepine 200 MG TABLET PO SCH ×2 (08:08→16:11)
[2017-10-27 08:26] VITALS: BP 120/69
[2017-10-27] MEDS ORDERED: MAG HYDROX/AL HYDROX/SIMETH ES 30 ML SUSPENSION UDCUP PO PRN (13:15)
[2017-10-27] MEDS ORDERED: HydrOXYzine PAMOATE 50 MG CAPSULE PO PRN (13:15)
[2017-10-27] MEDS ORDERED: ACETAMINOPHEN 325 MG TABLET PO PRN (13:15)
[2017-10-27] MEDS ORDERED: GuaiFENesin/D-METHORPHAN [SUGAR-FREE] 200-20MG/10 ML SYRUP UDCUP PO PRN (13:15)
[2017-10-27] MEDS ORDERED: LOPERAMIDE HCL 2 MG CAPSULE PO PRN (13:15)
[2017-10-27] MEDS ORDERED: MAGNESIUM HYDROXIDE SUSPENSION 30 ML UDCUP PO PRN (13:15)
[2017-10-27] MEDS: IBUPROFEN 600 MG TABLET PO PRN (13:23)
[2017-10-27] MEDS: PANTOPRAZOLE SODIUM 40 MG DR TABLET PO SCH (16:11)
[2017-10-27] MEDS: THIAMINE HCL 100 MG TABLET PO SCH (16:11)
[2017-10-27] MEDS: QUEtiapine FUMARATE 25 MG TABLET PO SCH (16:11)
[2017-10-27 16:18] VITALS: BP 128/86
[2017-10-27] MEDS: GABAPENTIN 400 MG CAPSULE PO SCH (20:45)
[2017-10-27] MEDS: DOCUSATE SODIUM 250 MG CAPSULE PO SCH (20:46)
[2017-10-27] MEDS: TEMAZEPAM 15 MG CAPSULE PO PRN (20:46)
[2017-10-27] MEDS ORDERED: QUEtiapine FUMARATE 100 MG TABLET PO SCH (21:00)
[2017-10-28] MEDS: IBUPROFEN 600 MG TABLET PO PRN (04:04)
[2017-10-28] MEDS: GABAPENTIN 400 MG CAPSULE PO SCH ×3 (06:17→20:13)
[2017-10-28] MEDS: QUEtiapine FUMARATE 25 MG TABLET PO SCH ×4 (08:00→17:00)
[2017-10-28] MEDS: THIAMINE HCL 100 MG TABLET PO SCH ×2 (08:00→16:07)
[2017-10-28] MEDS: CarBAMazepine 200 MG TABLET PO SCH ×2 (08:00→16:09)
[2017-10-28] MEDS: CHOLECALCIFEROL (VIT D3) 1,000 UNITS TABLET PO SCH ×2 (08:00→16:09)
[2017-10-28] MEDS: APIXABAN 5 MG TABLET PO SCH ×2 (08:00→16:10)
[2017-10-28] MEDS: AmLODIPine BESYLATE 10 MG TABLET PO SCH (08:00)
[2017-10-28] MEDS: FOLIC ACID 1 MG TABLET PO SCH (08:00)
[2017-10-28] MEDS: LORazepam 0.5 MG TABLET PO PRN ×2 (08:00→16:09)
[2017-10-28] MEDS: MULTIVITAMINS WITH MINERALS, THERAPEUTIC TABLET PO SCH (08:00)
[2017-10-28] MEDS: PANTOPRAZOLE SODIUM 40 MG DR TABLET PO SCH ×2 (08:00→16:09)
[2017-10-28 08:05] VITALS: BP 140/92
[2017-10-28] MEDS ORDERED: QUEtiapine FUMARATE 25 MG TABLET PO ONE (17:30)
[2017-10-28 18:16] VITALS: BP 143/73
[2017-10-28] MEDS: TEMAZEPAM 15 MG CAPSULE PO PRN (20:14)
[2017-10-28] MEDS: QUEtiapine FUMARATE 100 MG TABLET PO SCH (20:14)
[2017-10-28] MEDS: DOCUSATE SODIUM 250 MG CAPSULE PO SCH (20:15)
[2017-10-29 04:53] VITALS: BP 134/100
[2017-10-29] MEDS: GABAPENTIN 400 MG CAPSULE PO SCH ×3 (06:09→20:28)
[2017-10-29] MEDS: CarBAMazepine 200 MG TABLET PO SCH ×2 (08:06→16:19)
[2017-10-29] MEDS: PANTOPRAZOLE SODIUM 40 MG DR TABLET PO SCH ×2 (08:06→16:22)
[2017-10-29] MEDS: FOLIC ACID 1 MG TABLET PO SCH (08:06)
[2017-10-29] MEDS: CHOLECALCIFEROL (VIT D3) 1,000 UNITS TABLET PO SCH ×2 (08:06→16:19)
[2017-10-29] MEDS: AmLODIPine BESYLATE 10 MG TABLET PO SCH (08:06)
[2017-10-29] MEDS: QUEtiapine FUMARATE 25 MG TABLET PO SCH ×3 (08:06→16:22)
[2017-10-29] MEDS: THIAMINE HCL 100 MG TABLET PO SCH ×2 (08:06→16:19)
[2017-10-29] MEDS: APIXABAN 5 MG TABLET PO SCH ×2 (08:06→16:20)
[2017-10-29] MEDS: MULTIVITAMINS WITH MINERALS, THERAPEUTIC TABLET PO SCH (08:07)
[2017-10-29] MEDS: LORazepam 0.5 MG TABLET PO PRN ×2 (08:09→17:00)
[2017-10-29 10:20] VITALS: BP 134/82
[2017-10-29 17:36] VITALS: BP 113/84
[2017-10-29] MEDS: DOCUSATE SODIUM 250 MG CAPSULE PO SCH (20:28)
[2017-10-29] MEDS: QUEtiapine FUMARATE 100 MG TABLET PO SCH (20:29)
[2017-10-30] VITALS: BP 115/72
[2017-10-30] MEDS: TEMAZEPAM 15 MG CAPSULE PO PRN (00:01)
[2017-10-30] MEDS: GABAPENTIN 400 MG CAPSULE PO SCH ×3 (07:02→21:08)
[2017-10-30] MEDS: PANTOPRAZOLE SODIUM 40 MG DR TABLET PO SCH ×2 (08:20→16:26)
[2017-10-30] MEDS: CHOLECALCIFEROL (VIT D3) 1,000 UNITS TABLET PO SCH ×2 (08:20→16:28)
[2017-10-30] MEDS: FOLIC ACID 1 MG TABLET PO SCH (08:20)
[2017-10-30] MEDS: QUEtiapine FUMARATE 25 MG TABLET PO SCH ×3 (08:20→16:34)
[2017-10-30] MEDS: AmLODIPine BESYLATE 10 MG TABLET PO SCH (08:20)
[2017-10-30] MEDS: LORazepam 0.5 MG TABLET PO PRN ×2 (08:20→16:29)
[2017-10-30] MEDS: CarBAMazepine 200 MG TABLET PO SCH ×2 (08:20→16:29)
[2017-10-30] MEDS: THIAMINE HCL 100 MG TABLET PO SCH ×2 (08:20→16:27)
[2017-10-30] MEDS: APIXABAN 5 MG TABLET PO SCH ×2 (08:21→16:26)
[2017-10-30] MEDS: MULTIVITAMINS WITH MINERALS, THERAPEUTIC TABLET PO SCH (08:25)
[2017-10-30 09:59] VITALS: BP 122/94
[2017-10-30 18:55] VITALS: BP 118/63
[2017-10-30] MEDS: DOCUSATE SODIUM 250 MG CAPSULE PO SCH (21:08)
[2017-10-30] MEDS: QUEtiapine FUMARATE 100 MG TABLET PO SCH (21:08)
[2017-10-31] MEDS: GABAPENTIN 400 MG CAPSULE PO SCH ×3 (06:50→20:32)
[2017-10-31] MEDS: LORazepam 0.5 MG TABLET PO PRN ×2 (08:31→16:15)
[2017-10-31] MEDS: PANTOPRAZOLE SODIUM 40 MG DR TABLET PO SCH ×2 (08:32→16:17)
[2017-10-31] MEDS: QUEtiapine FUMARATE 25 MG TABLET PO SCH ×3 (08:32→16:17)
[2017-10-31] MEDS: AmLODIPine BESYLATE 10 MG TABLET PO SCH (08:32)
[2017-10-31] MEDS: THIAMINE HCL 100 MG TABLET PO SCH ×2 (08:32→16:17)
[2017-10-31] MEDS: CHOLECALCIFEROL (VIT D3) 1,000 UNITS TABLET PO SCH ×2 (08:32→16:17)
[2017-10-31] MEDS: FOLIC ACID 1 MG TABLET PO SCH (08:32)
[2017-10-31] MEDS: CarBAMazepine 200 MG TABLET PO SCH ×2 (08:32→16:17)
[2017-10-31] MEDS: APIXABAN 5 MG TABLET PO SCH ×2 (08:33→16:17)
[2017-10-31] MEDS: MULTIVITAMINS WITH MINERALS, THERAPEUTIC TABLET PO SCH (08:39)
[2017-10-31 09:39] VITALS: BP 142/84
[2017-10-31] MEDS: QUEtiapine FUMARATE 100 MG TABLET PO SCH (20:32)
[2017-10-31] MEDS: TEMAZEPAM 15 MG CAPSULE PO PRN (20:32)
[2017-10-31] MEDS: DOCUSATE SODIUM 250 MG CAPSULE PO SCH (20:33)
[2017-10-31 21:00] VITALS: BP 113/58
[2017-11-01 04:55] VITALS: BP 130/78
[2017-11-01] MEDS: GABAPENTIN 400 MG CAPSULE PO SCH ×3 (07:01→20:28)
[2017-11-01 08:30] VITALS: BP 159/96
[2017-11-01] MEDS: APIXABAN 5 MG TABLET PO SCH ×2 (08:46→16:19)
[2017-11-01] MEDS: AmLODIPine BESYLATE 10 MG TABLET PO SCH (08:48)
[2017-11-01] MEDS: FOLIC ACID 1 MG TABLET PO SCH (08:48)
[2017-11-01] MEDS: CarBAMazepine 200 MG TABLET PO SCH ×2 (08:48→16:19)
[2017-11-01] MEDS: QUEtiapine FUMARATE 25 MG TABLET PO SCH ×3 (08:48→16:18)
[2017-11-01] MEDS: MULTIVITAMINS WITH MINERALS, THERAPEUTIC TABLET PO SCH (08:49)
[2017-11-01] MEDS: CHOLECALCIFEROL (VIT D3) 1,000 UNITS TABLET PO SCH ×2 (08:49→16:18)
[2017-11-01] MEDS: PANTOPRAZOLE SODIUM 40 MG DR TABLET PO SCH ×2 (08:49→16:19)
[2017-11-01] MEDS: LORazepam 0.5 MG TABLET PO PRN (08:51)
[2017-11-01] MEDS: THIAMINE HCL 100 MG TABLET PO SCH ×2 (08:52→16:18)
[2017-11-01] MEDS ORDERED: DEXAMETHASONE 4 MG TABLET PO ONE (19:15)
[2017-11-01 19:34] VITALS: BP 111/70
[2017-11-01] MEDS: QUEtiapine FUMARATE 100 MG TABLET PO SCH (20:28)
[2017-11-01] MEDS: DOCUSATE SODIUM 250 MG CAPSULE PO SCH (20:28)
[2017-11-01] MEDS: TEMAZEPAM 15 MG CAPSULE PO PRN (20:31)
[2017-11-02] MEDS: GABAPENTIN 400 MG CAPSULE PO SCH ×3 (06:45→20:31)
[2017-11-02 08:15] VITALS: BP 128/79
[2017-11-02] MEDS: QUEtiapine FUMARATE 25 MG TABLET PO SCH ×3 (09:01→16:09)
[2017-11-02] MEDS: FOLIC ACID 1 MG TABLET PO SCH (09:01)
[2017-11-02] MEDS: PANTOPRAZOLE SODIUM 40 MG DR TABLET PO SCH ×2 (09:01→16:10)
[2017-11-02] MEDS: MULTIVITAMINS WITH MINERALS, THERAPEUTIC TABLET PO SCH (09:01)
[2017-11-02] MEDS: APIXABAN 5 MG TABLET PO SCH ×2 (09:01→16:09)
[2017-11-02] MEDS: CHOLECALCIFEROL (VIT D3) 1,000 UNITS TABLET PO SCH ×2 (09:02→16:09)
[2017-11-02] MEDS: AmLODIPine BESYLATE 10 MG TABLET PO SCH (09:02)
[2017-11-02] MEDS: CarBAMazepine 200 MG TABLET PO SCH ×2 (09:02→16:09)
[2017-11-02] MEDS: THIAMINE HCL 100 MG TABLET PO SCH ×2 (09:04→16:09)
[2017-11-02] MEDS: LORazepam 0.5 MG TABLET PO PRN ×2 (09:05→16:10)
[2017-11-02] MEDS: PROMETHAZINE HCL 25 MG TABLET PO PRN (11:52)
[2017-11-02 16:52] VITALS: BP 115/69
[2017-11-02] MEDS: QUEtiapine FUMARATE 100 MG TABLET PO SCH (20:31)
[2017-11-02] MEDS: DOCUSATE SODIUM 250 MG CAPSULE PO SCH (20:32)
[2017-11-02] MEDS: TEMAZEPAM 15 MG CAPSULE PO PRN (20:32)
[2017-11-03] MEDS: GABAPENTIN 400 MG CAPSULE PO SCH ×3 (06:56→20:37)
[2017-11-03] MEDS: APIXABAN 5 MG TABLET PO SCH ×2 (08:15→16:42)
[2017-11-03] MEDS: FOLIC ACID 1 MG TABLET PO SCH (08:16)
[2017-11-03] MEDS: CarBAMazepine 200 MG TABLET PO SCH ×2 (08:16→16:42)
[2017-11-03] MEDS: PANTOPRAZOLE SODIUM 40 MG DR TABLET PO SCH ×2 (08:16→16:42)
[2017-11-03] MEDS: AmLODIPine BESYLATE 10 MG TABLET PO SCH (08:16)
[2017-11-03] MEDS: CHOLECALCIFEROL (VIT D3) 1,000 UNITS TABLET PO SCH ×2 (08:17→16:41)
[2017-11-03] MEDS: MULTIVITAMINS WITH MINERALS, THERAPEUTIC TABLET PO SCH (08:17)
[2017-11-03] MEDS: QUEtiapine FUMARATE 25 MG TABLET PO SCH ×3 (08:17→16:41)
[2017-11-03] MEDS: THIAMINE HCL 100 MG TABLET PO SCH ×2 (08:18→16:41)
[2017-11-03] MEDS: LORazepam 0.5 MG TABLET PO PRN ×2 (08:21→16:42)
[2017-11-03 16:30] VITALS: BP 120/67
[2017-11-03] MEDS: TEMAZEPAM 15 MG CAPSULE PO PRN (20:36)
[2017-11-03] MEDS: DOCUSATE SODIUM 250 MG CAPSULE PO SCH (20:36)
[2017-11-03] MEDS: QUEtiapine FUMARATE 100 MG TABLET PO SCH (20:37)
[2017-11-04] MEDS: GABAPENTIN 400 MG CAPSULE PO SCH ×3 (06:52→20:45)
[2017-11-04] MEDS: QUEtiapine FUMARATE 25 MG TABLET PO SCH ×3 (08:11→16:18)
[2017-11-04] MEDS: APIXABAN 5 MG TABLET PO SCH ×2 (08:11→16:18)
[2017-11-04] MEDS: AmLODIPine BESYLATE 10 MG TABLET PO SCH (08:12)
[2017-11-04] MEDS: MULTIVITAMINS WITH MINERALS, THERAPEUTIC TABLET PO SCH (08:12)
[2017-11-04] MEDS: THIAMINE HCL 100 MG TABLET PO SCH ×2 (08:12→16:18)
[2017-11-04] MEDS: CarBAMazepine 200 MG TABLET PO SCH ×2 (08:12→16:18)
[2017-11-04] MEDS: PANTOPRAZOLE SODIUM 40 MG DR TABLET PO SCH ×2 (08:12→16:18)
[2017-11-04] MEDS: CHOLECALCIFEROL (VIT D3) 1,000 UNITS TABLET PO SCH ×2 (08:12→16:19)
[2017-11-04] MEDS: FOLIC ACID 1 MG TABLET PO SCH (08:13)
[2017-11-04 08:15] VITALS: BP 124/79
[2017-11-04] MEDS: LORazepam 0.5 MG TABLET PO PRN ×2 (08:18→15:59)
[2017-11-04] MEDS: PROMETHAZINE HCL 25 MG TABLET PO PRN (11:43)
[2017-11-04 17:12] VITALS: BP 134/72
[2017-11-04] MEDS: DOCUSATE SODIUM 250 MG CAPSULE PO SCH (20:45)
[2017-11-04] MEDS: QUEtiapine FUMARATE 100 MG TABLET PO SCH (20:45)
[2017-11-04] MEDS: TEMAZEPAM 15 MG CAPSULE PO PRN (20:45)
[2017-11-05 05:51] VITALS: BP 123/69
[2017-11-05] MEDS: IBUPROFEN 600 MG TABLET PO PRN (05:54)
[2017-11-05] MEDS: GABAPENTIN 400 MG CAPSULE PO SCH ×3 (06:58→20:43)
[2017-11-05] MEDS: LORazepam 0.5 MG TABLET PO PRN ×2 (07:40→16:18)
[2017-11-05 08:00] VITALS: BP 121/78
[2017-11-05] MEDS: AmLODIPine BESYLATE 10 MG TABLET PO SCH (08:43)
[2017-11-05] MEDS: PANTOPRAZOLE SODIUM 40 MG DR TABLET PO SCH ×2 (08:43→16:13)
[2017-11-05] MEDS: CHOLECALCIFEROL (VIT D3) 1,000 UNITS TABLET PO SCH ×2 (08:43→16:13)
[2017-11-05] MEDS: FOLIC ACID 1 MG TABLET PO SCH (08:43)
[2017-11-05] MEDS: CarBAMazepine 200 MG TABLET PO SCH ×2 (08:43→16:14)
[2017-11-05] MEDS: MULTIVITAMINS WITH MINERALS, THERAPEUTIC TABLET PO SCH (08:43)
[2017-11-05] MEDS: THIAMINE HCL 100 MG TABLET PO SCH ×2 (08:43→16:13)
[2017-11-05] MEDS: APIXABAN 5 MG TABLET PO SCH ×2 (08:43→16:13)
[2017-11-05] MEDS: QUEtiapine FUMARATE 25 MG TABLET PO SCH ×3 (08:43→16:14)
[2017-11-05 17:53] VITALS: BP 103/80
[2017-11-05] MEDS: DOCUSATE SODIUM 250 MG CAPSULE PO SCH (20:43)
[2017-11-05] MEDS: TEMAZEPAM 15 MG CAPSULE PO PRN (20:44)
[2017-11-05] MEDS: QUEtiapine FUMARATE 100 MG TABLET PO SCH (20:44)
[2017-11-06] MEDS: GABAPENTIN 400 MG CAPSULE PO SCH ×3 (06:14→20:11)
[2017-11-06 06:48] VITALS: BP 124/81
[2017-11-06] MEDS: LORazepam 0.5 MG TABLET PO PRN ×3 (07:36→16:05)
[2017-11-06 08:00] VITALS: BP 135/84
[2017-11-06] MEDS: PANTOPRAZOLE SODIUM 40 MG DR TABLET PO SCH ×2 (08:58→16:04)
[2017-11-06] MEDS: THIAMINE HCL 100 MG TABLET PO SCH (08:58)
[2017-11-06] MEDS: CHOLECALCIFEROL (VIT D3) 1,000 UNITS TABLET PO SCH ×2 (08:58→16:05)
[2017-11-06] MEDS: FOLIC ACID 1 MG TABLET PO SCH (08:59)
[2017-11-06] MEDS: AmLODIPine BESYLATE 10 MG TABLET PO SCH (08:59)
[2017-11-06] MEDS: APIXABAN 5 MG TABLET PO SCH ×2 (08:59→16:04)
[2017-11-06] MEDS: QUEtiapine FUMARATE 25 MG TABLET PO SCH ×3 (08:59→16:04)
[2017-11-06] MEDS: CarBAMazepine 200 MG TABLET PO SCH ×2 (08:59→16:04)
[2017-11-06] MEDS: MULTIVITAMINS WITH MINERALS, THERAPEUTIC TABLET PO SCH (08:59)
[2017-11-06] MEDS: IBUPROFEN 600 MG TABLET PO PRN (14:47)
[2017-11-06 15:47] VITALS: BP 137/74
[2017-11-06 16:30] VITALS: BP 130/70
[2017-11-06] MEDS: QUEtiapine FUMARATE 100 MG TABLET PO SCH (20:11)
[2017-11-06] MEDS: DOCUSATE SODIUM 250 MG CAPSULE PO SCH (20:11)
[2017-11-06] MEDS: TEMAZEPAM 15 MG CAPSULE PO PRN (20:12)
[2017-11-07 06:38] VITALS: BP 120/72
[2017-11-07] MEDS: IBUPROFEN 600 MG TABLET PO PRN (06:40)
[2017-11-07] MEDS: GABAPENTIN 400 MG CAPSULE PO SCH ×3 (07:02→20:31)
[2017-11-07 08:00] VITALS: BP 123/82
[2017-11-07] MEDS: QUEtiapine FUMARATE 25 MG TABLET PO SCH ×3 (09:10→16:44)
[2017-11-07] MEDS: APIXABAN 5 MG TABLET PO SCH ×2 (09:10→16:45)
[2017-11-07] MEDS: CarBAMazepine 200 MG TABLET PO SCH ×2 (09:11→16:45)
[2017-11-07] MEDS: PANTOPRAZOLE SODIUM 40 MG DR TABLET PO SCH ×2 (09:11→16:44)
[2017-11-07] MEDS: CHOLECALCIFEROL (VIT D3) 1,000 UNITS TABLET PO SCH ×2 (09:11→16:44)
[2017-11-07] MEDS: MULTIVITAMINS WITH MINERALS, THERAPEUTIC TABLET PO SCH (09:12)
[2017-11-07] MEDS: LORazepam 0.5 MG TABLET PO PRN ×2 (09:16→16:44)
[2017-11-07] MEDS: AmLODIPine BESYLATE 10 MG TABLET PO SCH (09:16)
[2017-11-07 16:53] VITALS: BP 118/64
[2017-11-07] MEDS: DOCUSATE SODIUM 250 MG CAPSULE PO SCH (20:31)
[2017-11-07] MEDS: QUEtiapine FUMARATE 100 MG TABLET PO SCH (20:31)
[2017-11-07] MEDS: TEMAZEPAM 15 MG CAPSULE PO PRN (20:32)
[2017-11-08 00:55] VITALS: BP 122/75
[2017-11-08] MEDS: IBUPROFEN 600 MG TABLET PO PRN ×2 (00:55→09:09)
[2017-11-08] MEDS: GABAPENTIN 400 MG CAPSULE PO SCH ×2 (07:02→13:08)
[2017-11-08 09:04] VITALS: BP 125/69
[2017-11-08] MEDS: AmLODIPine BESYLATE 10 MG TABLET PO SCH (09:10)
[2017-11-08] MEDS: CHOLECALCIFEROL (VIT D3) 1,000 UNITS TABLET PO SCH (09:10)
[2017-11-08] MEDS: QUEtiapine FUMARATE 25 MG TABLET PO SCH ×2 (09:10→13:08)
[2017-11-08] MEDS: LORazepam 0.5 MG TABLET PO PRN (09:10)
[2017-11-08] MEDS: MULTIVITAMINS WITH MINERALS, THERAPEUTIC TABLET PO SCH (09:10)
[2017-11-08] MEDS: CarBAMazepine 200 MG TABLET PO SCH (09:10)
[2017-11-08] MEDS: APIXABAN 5 MG TABLET PO SCH (09:10)
[2017-11-08] MEDS: PANTOPRAZOLE SODIUM 40 MG DR TABLET PO SCH (09:10)
[2017-11-08] MEDS ORDERED: CARB200T6 PO (11:35)
[2017-11-08] MEDS ORDERED: QUET100T PO (11:36)
[2017-11-08] MEDS ORDERED: GABA-533 PO (11:36)
[2017-11-08] MEDS ORDERED: QUET25TA PO (11:36)
[2017-11-08] MEDS ORDERED: APIX5TAB PO (11:47)
[2017-11-08] MEDS ORDERED: VITAD1000 PO (11:48)
[2017-11-08] MEDS ORDERED: DOCU250C91 PO (11:48)
[2017-11-08] MEDS ORDERED: PANT40TA25 PO (11:49)
== END 2017-11-08 16:20 | disposition home or self-care (01) | DRG 753 ==
LOC: EMS 19:42 → AHU 10-11 08:35 → 3EI 10-11 16:17
PROVIDERS: ADMIT Psychiatry & Neurology Psychiatry; ATTEND Psychiatry & Neurology Psychiatry
DX: F31.60 Bipolar disorder, current episode mixed, unspecified (principal); I26.99 Other pulmonary embolism without acute cor pulmonale; K22.2 Esophageal obstruction; E83.41 Hypermagnesemia; G62.9 Polyneuropathy, unspecified; J44.9 Chronic obstructive pulmonary disease, unspecified; Z91.14 Patient's other noncompliance with medication regimen; B36.9 Superficial mycosis, unspecified; R45.851 Suicidal ideations; D64.9 Anemia, unspecified; I10 Essential (primary) hypertension; K21.9 Gastro-esophageal reflux disease without esophagitis; K59.09 Other constipation; F41.9 Anxiety disorder, unspecified; H91.90 Unspecified hearing loss, unspecified ear; M19.90 Unspecified osteoarthritis, unspecified site; E87.6 Hypokalemia; R26.81 Unsteadiness on feet; M79.7 Fibromyalgia; M48.07 Spinal stenosis, lumbosacral region; G47.00 Insomnia, unspecified; G89.4 Chronic pain syndrome; Z59.0 Homelessness; R45.87 Impulsiveness; Z79.01 Long term (current) use of anticoagulants; Z90.710 Acquired absence of both cervix and uterus; Z86.14 Personal history of Methicillin resistant Staphylococcus aureus infection; Z86.718 Personal history of other venous thrombosis and embolism; Z79.899 Other long term (current) drug therapy; Z87.442 Personal history of urinary calculi; Z87.440 Personal history of urinary (tract) infections; Z91.19 Patient's noncompliance with other medical treatment and regimen
CPT/HCPCS: 83735; 87081; 92526; 92610; 97161; 97165; 97530; 99285; G0480; J8540

== ENCOUNTER 2017-12-15 09:16 | Emergency (ER) | payer MEDICARE, OTHER ==
[~2017-12-15] VITALS: Ht 172.7 cm; Wt 72.7 kg
[~2017-12-15 09:16] MED LIST changes: +APIX5TAB PO; +CARB200T6 PO; +DOCU250C91 PO; -DSS100 PO; +DULO60CA44 PO; -GABA-531 PO; +GABA-533 PO; -LANS30 PO; -LORA1TAB3 PO; -METO-558 PO; +OXCA300T28 PO; +OXCA300T29 PO; -OXYC10 PO; +PANT40TA25 PO; -PROP10TA73 PO; +QUET100T PO; +QUET25TA34 PO; +QUET300T18 PO; -TRAM50TA4 PO; -TRAZ-219 PO; +VITAD1000 PO
[2017-12-15 09:54] LABS: BASOPHILS % (AUTO) 1.3 % (0.0-2.0); EOSINOPHILS % (AUTO) 3.1 % (1.0-6.0); HEMATOCRIT 30.8 % (36-46); HEMOGLOBIN 10.2 g/dL (12.0-16.0); LYMPHOCYTES # (AUTO) 1.9 K/uL (1.0-4.8); LYMPHOCYTES % (AUTO) 33.4 % (22.0-44.0); MEAN CORPUSCULAR HEMOGLOBIN 29.2 pg (26.0-34.0); MEAN CORPUSCULAR HGB CONC 33.1 G/dL (31.0-37.0); MEAN CORPUSCULAR VOLUME 88 fL (80-100); MONOCYTES # (AUTO) 0.5 K/uL (0.1-1.0); MONOCYTES % (AUTO) 9.8 % (2.0-9.0); NEUTROPHILS # (AUTO) 2.9 K/uL (1.8-7.7); NEUTROPHILS % (AUTO) 52.4 % (40.0-70.0); PLATELET COUNT (AUTO) 622 K/uL (150-450); RED BLOOD CELL COUNT(AUTO) 3.49 MIL/uL (4.00-5.20)
[2017-12-15] MEDS ORDERED: SODIUM CHLORIDE 0.9% 100 ML ONE (09:58)
[2017-12-15] MEDS ORDERED: IOVERSOL 350 MG/ML 100 ML VIAL ONE (09:58)
[2017-12-15] MEDS ORDERED: LORazepam 2 MG/ML VIAL IVP ONE (10:00)
[2017-12-15 10:03] LABS: ANION GAP 9 mmol/L (8-16); CARBON DIOXIDE 25 mmol/L (22-29); CHLORIDE 104 mmol/L (98-107); CREATININE 0.96 mg/dL (0.60-1.30); GLOMERULAR FILTR. RATE CALC 57 mL/min (>60); GLUCOSE,RANDOM 116 mg/dL (70-110); POTASSIUM 3.9 mmol/L (3.5-5.1); SODIUM SERUM 138 mmol/L (136-145); UREA NITROGEN, BLOOD 16 mg/dL (7-18)
[2017-12-15 10:09] LABS: ALANINE AMINOTRANSFERASE 25 U/L (12-78); ALBUMIN 3.4 g/dL (3.4-5.0); ALKALINE PHOSPHATASE 182 U/L (46-116); ASPARTATE AMINOTRANSFERASE 20 U/L (15-37); BILIRUBIN,TOTAL 0.3 mg/dL (0.1-1.0); LIPASE 100 U/L (73-393)
[2017-12-15 10:33] LABS: APPEARANCE,URINE CLEAR (CLEAR); BILIRUBIN,URINE NEGATIVE (NEGATIVE); GLUCOSE, URINE (UA) NEGATIVE (NEGATIVE); KETONES,URINE TRACE mg/dL (NEGATIVE); LEUKOCYTE ESTERASE ,URINE NEGATIVE (NEGATIVE); NITRATE,URINE NEGATIVE (NEGATIVE); OCCULT BLOOD,URINE TRACE (NEGATIVE); PH,URINE 6.5 (5.0-8.0); PROTEIN,URINE TRACE (NEGATIVE); UROBILINOGEN,URINE 0.2 mg/dL (<=1.0)
[2017-12-15 10:35] LABS: AMPHET/METH SCREEN,URINE NEGATIVE (NEGATIVE); BARBITURATE SCREEN, URINE POSITIVE (NEGATIVE); BENZODIAZEPINES SCREEN,URINE NEGATIVE (NEGATIVE); CANNABINOID SCREEN,URINE NEGATIVE (NEGATIVE); COCAINE SCREEN,URINE NEGATIVE (NEGATIVE); METHADONE SCREEN, URINE NEGATIVE (NEGATIVE); OPIATE SCREEN,URINE POSITIVE (NEGATIVE); PHENCYCLIDINE SCREEN,URINE NEGATIVE (NEGATIVE)
[2017-12-15 10:48] LABS: BACTERIA,URINE None Seen /HPF (None Seen); RBC,URINE 0-2 /HPF (0-2); SQUAMOUS EPITHELIAL CELL,UR Few /LPF (None Seen); WBC,URINE 0-2 /HPF (0-5)
[2017-12-15 10:49] LABS: MUCUS,URINE Moderate LPF (None Seen)
[2017-12-15 11:40] VITALS: BP 144/87
[2017-12-15] MEDS ORDERED: LORazepam 1 MG TABLET PO ONE (13:45)
== END 2017-12-15 14:01 | disposition home or self-care (01) ==
LOC: EMS 09:18
DX: K76.0 Fatty (change of) liver, not elsewhere classified (principal); D64.9 Anemia, unspecified; N83.201 Unspecified ovarian cyst, right side; F41.9 Anxiety disorder, unspecified; F31.9 Bipolar disorder, unspecified; K21.9 Gastro-esophageal reflux disease without esophagitis; I10 Essential (primary) hypertension; F19.90 Other psychoactive substance use, unspecified, uncomplicated; Z59.9 Problem related to housing and economic circumstances, unspecified; Z90.710 Acquired absence of both cervix and uterus; Z85.41 Personal history of malignant neoplasm of cervix uteri; Z96.662 Presence of left artificial ankle joint; Z79.899 Other long term (current) drug therapy
CPT/HCPCS: 36415; 74177; 80053; 80307; 81001; 83690; 85025; 96374; 99285; G0480; J2060; J7050; Q9967

== ENCOUNTER 2017-12-16 14:48 | Inpatient (IN) | payer MEDICARE, MEDICAID ==
[~2017-12-16] VITALS: Ht 172.7 cm; Wt 73.1 kg
[~2017-12-16 14:48] MED LIST changes: -OXCA300T29 PO; -QUET100T PO; -QUET25TA PO
[2017-12-16 16:13] LABS: BASOPHILS % (AUTO) 1.2 % (0.0-2.0); HEMATOCRIT 31.8 % (36-46); HEMOGLOBIN 10.3 g/dL (12.0-16.0); LYMPHOCYTES # (AUTO) 3.5 K/uL (1.0-4.8); LYMPHOCYTES % (AUTO) 37.3 % (22.0-44.0); MEAN CORPUSCULAR HEMOGLOBIN 28.5 pg (26.0-34.0); MEAN CORPUSCULAR HGB CONC 32.5 G/dL (31.0-37.0); MEAN CORPUSCULAR VOLUME 88 fL (80-100); MONOCYTES # (AUTO) 0.6 K/uL (0.1-1.0); MONOCYTES % (AUTO) 6.9 % (2.0-9.0); NEUTROPHILS # (AUTO) 4.7 K/uL (1.8-7.7); NEUTROPHILS % (AUTO) 50.6 % (40.0-70.0); PLATELET COUNT (AUTO) 633 K/uL (150-450); RED BLOOD CELL COUNT(AUTO) 3.63 MIL/uL (4.00-5.20); RED CELL DISTRIBUTION WIDTH 18.6 % (11.5-14.5)
[2017-12-16 16:23] LABS: ANION GAP 10 mmol/L (8-16); CARBON DIOXIDE 24 mmol/L (22-29); CHLORIDE 105 mmol/L (98-107); CREATININE 1.07 mg/dL (0.60-1.30); GLOMERULAR FILTR. RATE CALC 51 mL/min (>60); GLUCOSE,RANDOM 119 mg/dL (70-110); SODIUM SERUM 139 mmol/L (136-145); UREA NITROGEN, BLOOD 20 mg/dL (7-18)
[2017-12-16 16:28] LABS: AMPHET/METH SCREEN,URINE NEGATIVE (NEGATIVE); BARBITURATE SCREEN, URINE POSITIVE (NEGATIVE); BENZODIAZEPINES SCREEN,URINE NEGATIVE (NEGATIVE); CANNABINOID SCREEN,URINE NEGATIVE (NEGATIVE); COCAINE SCREEN,URINE NEGATIVE (NEGATIVE); METHADONE SCREEN, URINE NEGATIVE (NEGATIVE); OPIATE SCREEN,URINE POSITIVE (NEGATIVE)
[2017-12-16 16:29] LABS: PHENCYCLIDINE SCREEN,URINE NEGATIVE (NEGATIVE)
[2017-12-16 16:29] LABS: ALANINE AMINOTRANSFERASE 26 U/L (12-78); ALBUMIN 3.5 g/dL (3.4-5.0); ALKALINE PHOSPHATASE 178 U/L (46-116); ASPARTATE AMINOTRANSFERASE 19 U/L (15-37); BILIRUBIN,TOTAL 0.3 mg/dL (0.1-1.0); TOTAL PROTEIN, SERUM 7.1 g/dL (6.4-8.2)
[2017-12-16 16:31] LABS: PROTHROMBIN TIME 10.6 SEC (9.4-11.6)
[2017-12-16 16:53] LABS: APPEARANCE,URINE CLOUDY (CLEAR); BILIRUBIN,URINE NEGATIVE (NEGATIVE); GLUCOSE, URINE (UA) NEGATIVE (NEGATIVE); KETONES,URINE TRACE mg/dL (NEGATIVE); LEUKOCYTE ESTERASE ,URINE LARGE (NEGATIVE); NITRATE,URINE NEGATIVE (NEGATIVE); OCCULT BLOOD,URINE NEGATIVE (NEGATIVE); PROTEIN,URINE TRACE (NEGATIVE); UROBILINOGEN,URINE 0.2 mg/dL (<=1.0)
[2017-12-16 17:05] LABS: RBC,URINE 0-2 /HPF (0-2); WBC,URINE 26-50 /HPF (0-5)
[2017-12-16 17:06] LABS: BACTERIA,URINE Moderate /HPF (None Seen); SQUAMOUS EPITHELIAL CELL,UR Few /LPF (None Seen)
[2017-12-16 17:07] LABS: CALCIUM OXALATE CRYSTALS,UR Many /LPF (None Seen); TRANSITIONAL EPI CELLS,URINE Few /LPF (None Seen)
[2017-12-16 17:08] LABS: RENAL EPITHELIAL CELLS,URINE Rare /LPF (None Seen)
[2017-12-16] MEDS ORDERED: NITROFURANTOIN/NITROFURAN MAC 100 MG CAPSULE [MACROBID] PO ONE (18:15)
[2017-12-16] MEDS ORDERED: LORazepam 1 MG TABLET PO ONE (20:00)
[2017-12-16] MEDS ORDERED: QUEtiapine FUMARATE 100 MG TABLET PO ONE (20:00)
[2017-12-16] MEDS ORDERED: QUEtiapine FUMARATE 100 MG TABLET PO PRN (21:00)
[2017-12-16] MEDS: CarBAMazepine 100 MG CHEWABLE TABLET PO SCH (21:43)
[2017-12-16 21:49] VITALS: BP 122/85
[2017-12-17] MEDS: LORazepam 0.5 MG TABLET PO PRN ×2 (03:33→16:15)
[2017-12-17 04:27] VITALS: BP 120/81
[2017-12-17 06:32] LABS: CHOL/HDL RATIO 2.4 (3.9-5.7); FREE T4 (FREE THYROXINE) 0.74 ng/dL (0.76-1.46)
[2017-12-17] MEDS: PANTOPRAZOLE SODIUM 40 MG DR TABLET PO SCH ×2 (07:47→16:16)
[2017-12-17] MEDS: CHOLECALCIFEROL (VIT D3) 1,000 UNITS TABLET PO SCH ×2 (07:47→16:16)
[2017-12-17] MEDS: NITROFURANTOIN/NITROFURAN MAC 100 MG CAPSULE [MACROBID] PO SCH ×2 (07:48→16:16)
[2017-12-17] MEDS: CarBAMazepine 100 MG CHEWABLE TABLET PO SCH (07:48)
[2017-12-17] MEDS: APIXABAN 5 MG TABLET PO SCH ×2 (07:48→16:16)
[2017-12-17] MEDS: AmLODIPine BESYLATE 10 MG TABLET PO SCH (07:49)
[2017-12-17] MEDS ORDERED: DULoxetine HCL 30 MG CAPSULE PO SCH (09:00)
[2017-12-17 10:25] VITALS: BP 151/95
[2017-12-17] MEDS ORDERED: GuaiFENesin/D-METHORPHAN [SUGAR-FREE] 200-20MG/10 ML SYRUP UDCUP PO PRN (13:00)
[2017-12-17] MEDS ORDERED: LOPERAMIDE HCL 2 MG CAPSULE PO PRN (13:00)
[2017-12-17] MEDS ORDERED: HydrOXYzine PAMOATE 50 MG CAPSULE PO PRN (13:00)
[2017-12-17] MEDS ORDERED: TUBERCULIN, PURIFIED PROTEIN DERIVATIVE 5 TU/0.1 ML SYG ID ONE (13:00)
[2017-12-17] MEDS: QUEtiapine FUMARATE 25 MG TABLET PO SCH ×2 (13:14→16:17)
[2017-12-17] MEDS: GABAPENTIN 400 MG CAPSULE PO SCH ×2 (13:14→16:17)
[2017-12-17] MEDS: THIAMINE HCL 100 MG TABLET PO SCH (16:15)
[2017-12-17] MEDS: CarBAMazepine 200 MG TABLET PO SCH (16:16)
[2017-12-17 19:06] VITALS: BP 137/81
[2017-12-17] MEDS: DOCUSATE SODIUM 250 MG CAPSULE PO SCH (20:32)
[2017-12-17] MEDS: QUEtiapine FUMARATE 300 MG TABLET PO SCH (20:33)
[2017-12-17] MEDS: ZOLPIDEM TARTRATE 10 MG TABLET PO PRN (20:33)
[2017-12-17] MEDS ORDERED: QUEtiapine FUMARATE 100 MG TABLET PO SCH (21:00)
[2017-12-18 08:00] VITALS: BP 121/60
[2017-12-18] MEDS: LORazepam 1 MG TABLET PO PRN ×2 (08:48→18:12)
[2017-12-18] MEDS: THIAMINE HCL 100 MG TABLET PO SCH ×2 (08:48→16:06)
[2017-12-18] MEDS: CarBAMazepine 200 MG TABLET PO SCH ×2 (08:48→16:06)
[2017-12-18] MEDS: FOLIC ACID 1 MG TABLET PO SCH (08:48)
[2017-12-18] MEDS: AmLODIPine BESYLATE 10 MG TABLET PO SCH (08:48)
[2017-12-18] MEDS: APIXABAN 5 MG TABLET PO SCH ×2 (08:49→16:05)
[2017-12-18] MEDS: QUEtiapine FUMARATE 25 MG TABLET PO SCH ×3 (08:49→16:05)
[2017-12-18] MEDS: PANTOPRAZOLE SODIUM 40 MG DR TABLET PO SCH ×2 (08:49→16:05)
[2017-12-18] MEDS: NITROFURANTOIN/NITROFURAN MAC 100 MG CAPSULE [MACROBID] PO SCH ×2 (08:50→16:05)
[2017-12-18] MEDS: CHOLECALCIFEROL (VIT D3) 1,000 UNITS TABLET PO SCH ×2 (08:50→16:06)
[2017-12-18] MEDS: GABAPENTIN 400 MG CAPSULE PO SCH ×3 (08:50→16:06)
[2017-12-18] MEDS: DULoxetine HCL 60 MG CAPSULE PO SCH (08:51)
[2017-12-18] MEDS: MULTIVITAMINS WITH MINERALS, THERAPEUTIC TABLET PO SCH (08:52)
[2017-12-18] MEDS: MAG HYDROX/AL HYDROX/SIMETH ES 30 ML SUSPENSION UDCUP PO PRN (14:30)
[2017-12-18] MEDS: DOCUSATE SODIUM 250 MG CAPSULE PO SCH (20:22)
[2017-12-18] MEDS: QUEtiapine FUMARATE 300 MG TABLET PO SCH (20:22)
[2017-12-18 20:24] VITALS: BP 132/73
[2017-12-19 08:00] VITALS: BP 135/83
[2017-12-19] MEDS: MULTIVITAMINS WITH MINERALS, THERAPEUTIC TABLET PO SCH (09:00)
[2017-12-19] MEDS: LORazepam 1 MG TABLET PO PRN ×2 (09:01→16:05)
[2017-12-19] MEDS: GABAPENTIN 400 MG CAPSULE PO SCH ×3 (09:02→16:04)
[2017-12-19] MEDS: NITROFURANTOIN/NITROFURAN MAC 100 MG CAPSULE [MACROBID] PO SCH ×2 (09:02→16:04)
[2017-12-19] MEDS: THIAMINE HCL 100 MG TABLET PO SCH ×2 (09:02→16:04)
[2017-12-19] MEDS: PANTOPRAZOLE SODIUM 40 MG DR TABLET PO SCH ×2 (09:03→16:04)
[2017-12-19] MEDS: FOLIC ACID 1 MG TABLET PO SCH (09:03)
[2017-12-19] MEDS: DULoxetine HCL 60 MG CAPSULE PO SCH (09:03)
[2017-12-19] MEDS: CarBAMazepine 100 MG CHEWABLE TABLET PO SCH ×2 (09:04→16:04)
[2017-12-19] MEDS: AmLODIPine BESYLATE 10 MG TABLET PO SCH (09:04)
[2017-12-19] MEDS: APIXABAN 5 MG TABLET PO SCH ×2 (09:04→16:04)
[2017-12-19] MEDS: QUEtiapine FUMARATE 25 MG TABLET PO SCH ×3 (09:05→16:04)
[2017-12-19] MEDS: CHOLECALCIFEROL (VIT D3) 1,000 UNITS TABLET PO SCH ×2 (09:05→16:04)
[2017-12-19] MEDS: MAG HYDROX/AL HYDROX/SIMETH ES 30 ML SUSPENSION UDCUP PO PRN (14:53)
[2017-12-19 17:16] VITALS: BP 140/86
[2017-12-19] MEDS: QUEtiapine FUMARATE 300 MG TABLET PO SCH (20:16)
[2017-12-19] MEDS: DOCUSATE SODIUM 250 MG CAPSULE PO SCH (20:16)
[2017-12-19] MEDS: ZOLPIDEM TARTRATE 10 MG TABLET PO PRN (20:17)
[2017-12-20 02:59] VITALS: BP 100/66
[2017-12-20] MEDS: ACETAMINOPHEN 325 MG TABLET PO PRN (03:02)
[2017-12-20] MEDS: LORazepam 1 MG TABLET PO PRN ×2 (07:41→16:16)
[2017-12-20] MEDS ORDERED: CarBAMazepine 100 MG CHEWABLE TABLET PO ONE (09:00)
[2017-12-20] MEDS: QUEtiapine FUMARATE 25 MG TABLET PO SCH ×3 (09:02→16:14)
[2017-12-20] MEDS: AmLODIPine BESYLATE 10 MG TABLET PO SCH (09:02)
[2017-12-20] MEDS: FOLIC ACID 1 MG TABLET PO SCH (09:02)
[2017-12-20] MEDS: CHOLECALCIFEROL (VIT D3) 1,000 UNITS TABLET PO SCH ×2 (09:02→16:16)
[2017-12-20] MEDS: GABAPENTIN 400 MG CAPSULE PO SCH ×3 (09:02→16:14)
[2017-12-20] MEDS: DULoxetine HCL 60 MG CAPSULE PO SCH (09:02)
[2017-12-20] MEDS: MULTIVITAMINS WITH MINERALS, THERAPEUTIC TABLET PO SCH (09:02)
[2017-12-20] MEDS: NITROFURANTOIN/NITROFURAN MAC 100 MG CAPSULE [MACROBID] PO SCH ×2 (09:02→16:14)
[2017-12-20] MEDS: PANTOPRAZOLE SODIUM 40 MG DR TABLET PO SCH ×2 (09:02→16:14)
[2017-12-20] MEDS: THIAMINE HCL 100 MG TABLET PO SCH ×2 (09:02→16:14)
[2017-12-20] MEDS: APIXABAN 5 MG TABLET PO SCH ×2 (09:02→16:14)
[2017-12-20 09:54] VITALS: BP 130/65
[2017-12-20] MEDS: MAG HYDROX/AL HYDROX/SIMETH ES 30 ML SUSPENSION UDCUP PO PRN ×2 (14:15→18:44)
[2017-12-20 16:57] VITALS: BP 122/75
[2017-12-20] MEDS: QUEtiapine FUMARATE 300 MG TABLET PO SCH (20:13)
[2017-12-20] MEDS: ZOLPIDEM TARTRATE 10 MG TABLET PO PRN (20:13)
[2017-12-20] MEDS: DOCUSATE SODIUM 250 MG CAPSULE PO SCH (20:15)
[2017-12-21 08:39] VITALS: BP 121/66
[2017-12-21] MEDS: CHOLECALCIFEROL (VIT D3) 1,000 UNITS TABLET PO SCH ×2 (08:52→16:05)
[2017-12-21] MEDS: QUEtiapine FUMARATE 25 MG TABLET PO SCH ×3 (08:52→16:05)
[2017-12-21] MEDS: FOLIC ACID 1 MG TABLET PO SCH (08:52)
[2017-12-21] MEDS: GABAPENTIN 400 MG CAPSULE PO SCH ×3 (08:52→16:05)
[2017-12-21] MEDS: SULFAMETHOX/TRIMETH DS 800-160 MG/TABLET PO SCH ×2 (08:52→16:05)
[2017-12-21] MEDS: AmLODIPine BESYLATE 10 MG TABLET PO SCH (08:52)
[2017-12-21] MEDS: MULTIVITAMINS WITH MINERALS, THERAPEUTIC TABLET PO SCH (08:52)
[2017-12-21] MEDS: PANTOPRAZOLE SODIUM 40 MG DR TABLET PO SCH ×2 (08:52→16:05)
[2017-12-21] MEDS: LORazepam 1 MG TABLET PO PRN ×2 (08:52→14:11)
[2017-12-21] MEDS: THIAMINE HCL 100 MG TABLET PO SCH ×2 (08:52→16:08)
[2017-12-21] MEDS: DULoxetine HCL 60 MG CAPSULE PO SCH (08:52)
[2017-12-21] MEDS: APIXABAN 5 MG TABLET PO SCH ×2 (08:53→16:05)
[2017-12-21 09:01] VITALS: BP 121/66
[2017-12-21] MEDS: PROMETHAZINE HCL 25 MG TABLET PO PRN ×2 (09:03→14:11)
[2017-12-21] MEDS: ACETAMINOPHEN 325 MG TABLET PO PRN (09:04)
[2017-12-21] MEDS: MAG HYDROX/AL HYDROX/SIMETH ES 30 ML SUSPENSION UDCUP PO PRN ×2 (12:41→18:48)
[2017-12-21 16:19] VITALS: BP 114/69
[2017-12-21] MEDS: QUEtiapine FUMARATE 300 MG TABLET PO SCH (20:04)
[2017-12-21] MEDS: DOCUSATE SODIUM 250 MG CAPSULE PO SCH (20:04)
[2017-12-21] MEDS: ZOLPIDEM TARTRATE 10 MG TABLET PO PRN (20:06)
[2017-12-22] MEDS: MAG HYDROX/AL HYDROX/SIMETH ES 30 ML SUSPENSION UDCUP PO PRN ×2 (04:25→14:13)
[2017-12-22] MEDS: QUEtiapine FUMARATE 25 MG TABLET PO SCH ×4 (07:54→16:12)
[2017-12-22] MEDS: DULoxetine HCL 60 MG CAPSULE PO SCH (07:54)
[2017-12-22] MEDS: GABAPENTIN 400 MG CAPSULE PO SCH ×2 (07:54→12:34)
[2017-12-22] MEDS: AmLODIPine BESYLATE 10 MG TABLET PO SCH (07:54)
[2017-12-22] MEDS: THIAMINE HCL 100 MG TABLET PO SCH ×2 (07:54→16:12)
[2017-12-22] MEDS: PANTOPRAZOLE SODIUM 40 MG DR TABLET PO SCH ×2 (07:54→16:12)
[2017-12-22] MEDS: CHOLECALCIFEROL (VIT D3) 1,000 UNITS TABLET PO SCH ×2 (07:54→16:12)
[2017-12-22] MEDS: FOLIC ACID 1 MG TABLET PO SCH (07:54)
[2017-12-22] MEDS: APIXABAN 5 MG TABLET PO SCH ×2 (07:55→16:12)
[2017-12-22] MEDS: SULFAMETHOX/TRIMETH DS 800-160 MG/TABLET PO SCH ×2 (07:55→16:11)
[2017-12-22] MEDS: LORazepam 1 MG TABLET PO PRN ×2 (07:56→16:13)
[2017-12-22] MEDS: MULTIVITAMINS WITH MINERALS, THERAPEUTIC TABLET PO SCH (07:57)
[2017-12-22 12:47] VITALS: BP 128/60
[2017-12-22] MEDS: GABAPENTIN 300 MG CAPSULE PO SCH ×2 (14:11→16:12)
[2017-12-22 17:23] VITALS: BP 129/79
[2017-12-22 17:35] VITALS: BP 116/70
[2017-12-22] MEDS: ACETAMINOPHEN 325 MG TABLET PO PRN (17:35)
[2017-12-22 18:35] VITALS: BP 110/68
[2017-12-22] MEDS: QUEtiapine FUMARATE 300 MG TABLET PO SCH (20:13)
[2017-12-22] MEDS: DOCUSATE SODIUM 250 MG CAPSULE PO SCH (20:13)
[2017-12-22] MEDS: ZOLPIDEM TARTRATE 10 MG TABLET PO PRN (20:13)
[2017-12-23] MEDS: MULTIVITAMINS WITH MINERALS, THERAPEUTIC TABLET PO SCH (09:00)
[2017-12-23] MEDS: GABAPENTIN 300 MG CAPSULE PO SCH ×2 (09:04→13:06)
[2017-12-23] MEDS: QUEtiapine FUMARATE 25 MG TABLET PO SCH ×3 (09:05→16:16)
[2017-12-23] MEDS: SULFAMETHOX/TRIMETH DS 800-160 MG/TABLET PO SCH ×2 (09:05→16:17)
[2017-12-23] MEDS: CHOLECALCIFEROL (VIT D3) 1,000 UNITS TABLET PO SCH ×2 (09:05→16:17)
[2017-12-23] MEDS: THIAMINE HCL 100 MG TABLET PO SCH ×2 (09:05→16:17)
[2017-12-23] MEDS: DULoxetine HCL 60 MG CAPSULE PO SCH (09:05)
[2017-12-23] MEDS: APIXABAN 5 MG TABLET PO SCH ×2 (09:05→16:17)
[2017-12-23] MEDS: PANTOPRAZOLE SODIUM 40 MG DR TABLET PO SCH ×2 (09:05→16:17)
[2017-12-23] MEDS: FOLIC ACID 1 MG TABLET PO SCH (09:05)
[2017-12-23] MEDS: AmLODIPine BESYLATE 10 MG TABLET PO SCH (09:05)
[2017-12-23] MEDS: LORazepam 1 MG TABLET PO PRN ×2 (09:07→16:16)
[2017-12-23 10:26] VITALS: BP 146/79
[2017-12-23] MEDS: MAG HYDROX/AL HYDROX/SIMETH ES 30 ML SUSPENSION UDCUP PO PRN (13:06)
[2017-12-23] MEDS: GABAPENTIN 400 MG CAPSULE PO SCH (16:17)
[2017-12-23 16:41] VITALS: BP 134/74
[2017-12-23] MEDS: DOCUSATE SODIUM 250 MG CAPSULE PO SCH (20:09)
[2017-12-23] MEDS: QUEtiapine FUMARATE 300 MG TABLET PO SCH (20:09)
[2017-12-23] MEDS: ZOLPIDEM TARTRATE 10 MG TABLET PO PRN (21:26)
[2017-12-24 07:04] LABS: BASOPHILS % (AUTO) 1.7 % (0.0-2.0); EOSINOPHILS % (AUTO) 4.9 % (1.0-6.0); HEMATOCRIT 30.1 % (36-46); HEMOGLOBIN 10.1 g/dL (12.0-16.0); LYMPHOCYTES # (AUTO) 2.7 K/uL (1.0-4.8); LYMPHOCYTES % (AUTO) 50.4 % (22.0-44.0); MEAN CORPUSCULAR HGB CONC 33.5 G/dL (31.0-37.0); MEAN CORPUSCULAR VOLUME 87 fL (80-100); MONOCYTES # (AUTO) 0.5 K/uL (0.1-1.0); MONOCYTES % (AUTO) 9.7 % (2.0-9.0); NEUTROPHILS # (AUTO) 1.8 K/uL (1.8-7.7); NEUTROPHILS % (AUTO) 33.3 % (40.0-70.0); PLATELET COUNT (AUTO) 725 K/uL (150-450); RED BLOOD CELL COUNT(AUTO) 3.47 MIL/uL (4.00-5.20); RED CELL DISTRIBUTION WIDTH 18.6 % (11.5-14.5)
[2017-12-24 07:22] LABS: ALANINE AMINOTRANSFERASE 28 U/L (12-78); ALKALINE PHOSPHATASE 170 U/L (46-116); ANION GAP 7 mmol/L (8-16); ASPARTATE AMINOTRANSFERASE 17 U/L (15-37); BILIRUBIN,TOTAL 0.2 mg/dL (0.1-1.0); C-REACTIVE PROTEIN QUANT 0.19 mg/dL (0.00-0.30); CALCIUM, TOTAL 8.6 mg/dL (8.8-10.5); CARBON DIOXIDE 27 mmol/L (22-29); CHLORIDE 103 mmol/L (98-107); CREATINE KINASE, TOTAL ONLY 19 U/L (26-192); CREATININE 1.12 mg/dL (0.60-1.30); GLOMERULAR FILTR. RATE CALC 48 mL/min (>60); GLUCOSE,RANDOM 105 mg/dL (70-110); POTASSIUM 4.3 mmol/L (3.5-5.1); SODIUM SERUM 137 mmol/L (136-145); TOTAL PROTEIN, SERUM 6.4 g/dL (6.4-8.2); UREA NITROGEN, BLOOD 28 mg/dL (7-18)
[2017-12-24 07:23] LABS: LACTIC ACID 0.9 mmol/L (0.4-2.0)
[2017-12-24 08:21] LABS: ERYTHROCYTE SEDIMENTATION RATE 10 MM/HR (0-20)
[2017-12-24 08:30] VITALS: BP 108/56
[2017-12-24] MEDS: FOLIC ACID 1 MG TABLET PO SCH (09:00)
[2017-12-24] MEDS: SULFAMETHOX/TRIMETH DS 800-160 MG/TABLET PO SCH ×2 (09:00→16:07)
[2017-12-24] MEDS: DULoxetine HCL 60 MG CAPSULE PO SCH (09:00)
[2017-12-24] MEDS: APIXABAN 5 MG TABLET PO SCH ×2 (09:00→17:03)
[2017-12-24] MEDS: QUEtiapine FUMARATE 25 MG TABLET PO SCH ×2 (09:01→12:44)
[2017-12-24] MEDS: MULTIVITAMINS WITH MINERALS, THERAPEUTIC TABLET PO SCH (09:01)
[2017-12-24] MEDS: LORazepam 1 MG TABLET PO PRN ×2 (09:01→16:07)
[2017-12-24] MEDS: CHOLECALCIFEROL (VIT D3) 1,000 UNITS TABLET PO SCH ×2 (09:02→16:07)
[2017-12-24] MEDS: PROMETHAZINE HCL 25 MG TABLET PO PRN (09:02)
[2017-12-24] MEDS: MAG HYDROX/AL HYDROX/SIMETH ES 30 ML SUSPENSION UDCUP PO PRN (09:02)
[2017-12-24] MEDS: AmLODIPine BESYLATE 10 MG TABLET PO SCH (09:07)
[2017-12-24] MEDS: GABAPENTIN 400 MG CAPSULE PO SCH ×3 (09:07→16:07)
[2017-12-24] MEDS: PANTOPRAZOLE SODIUM 40 MG DR TABLET PO SCH ×2 (09:08→16:07)
[2017-12-24] MEDS: THIAMINE HCL 100 MG TABLET PO SCH ×2 (09:08→16:07)
[2017-12-24] MEDS: QUEtiapine FUMARATE 100 MG TABLET PO SCH (16:08)
[2017-12-24 17:00] VITALS: BP 90/60
[2017-12-24] MEDS: ZOLPIDEM TARTRATE 10 MG TABLET PO PRN (20:42)
[2017-12-24] MEDS: QUEtiapine FUMARATE 300 MG TABLET PO SCH (20:43)
[2017-12-24] MEDS: DOCUSATE SODIUM 250 MG CAPSULE PO SCH (20:43)
[2017-12-25 05:30] VITALS: BP 109/64
[2017-12-25] MEDS: ACETAMINOPHEN 325 MG TABLET PO PRN ×2 (05:33→11:38)
[2017-12-25] MEDS: PANTOPRAZOLE SODIUM 40 MG DR TABLET PO SCH ×2 (08:35→16:09)
[2017-12-25] MEDS: DULoxetine HCL 60 MG CAPSULE PO SCH (08:35)
[2017-12-25] MEDS: QUEtiapine FUMARATE 100 MG TABLET PO SCH ×3 (08:35→16:09)
[2017-12-25] MEDS: CHOLECALCIFEROL (VIT D3) 1,000 UNITS TABLET PO SCH ×2 (08:36→16:10)
[2017-12-25] MEDS: LORazepam 1 MG TABLET PO PRN ×2 (08:36→16:25)
[2017-12-25] MEDS: FOLIC ACID 1 MG TABLET PO SCH (08:36)
[2017-12-25] MEDS: AmLODIPine BESYLATE 10 MG TABLET PO SCH (08:36)
[2017-12-25] MEDS: GABAPENTIN 400 MG CAPSULE PO SCH ×3 (08:36→16:09)
[2017-12-25] MEDS: APIXABAN 5 MG TABLET PO SCH ×2 (08:36→16:09)
[2017-12-25] MEDS: THIAMINE HCL 100 MG TABLET PO SCH ×2 (08:36→16:09)
[2017-12-25] MEDS: MAG HYDROX/AL HYDROX/SIMETH ES 30 ML SUSPENSION UDCUP PO PRN ×2 (08:37→14:42)
[2017-12-25] MEDS: SULFAMETHOX/TRIMETH DS 800-160 MG/TABLET PO SCH ×2 (08:37→16:09)
[2017-12-25] MEDS: MULTIVITAMINS WITH MINERALS, THERAPEUTIC TABLET PO SCH (09:00)
[2017-12-25 09:42] VITALS: BP 127/68
[2017-12-25] MEDS: MAGNESIUM HYDROXIDE SUSPENSION 30 ML UDCUP PO PRN (11:39)
[2017-12-25] MEDS: QUEtiapine FUMARATE 300 MG TABLET PO SCH (20:06)
[2017-12-25] MEDS: DOCUSATE SODIUM 250 MG CAPSULE PO SCH (20:06)
[2017-12-25] MEDS: ZOLPIDEM TARTRATE 10 MG TABLET PO PRN (20:06)
[2017-12-25 21:14] VITALS: BP 106/70
[2017-12-26] MEDS: GABAPENTIN 400 MG CAPSULE PO SCH ×3 (08:34→16:16)
[2017-12-26] MEDS: THIAMINE HCL 100 MG TABLET PO SCH ×2 (08:34→16:16)
[2017-12-26] MEDS: CHOLECALCIFEROL (VIT D3) 1,000 UNITS TABLET PO SCH ×2 (08:34→16:16)
[2017-12-26] MEDS: AmLODIPine BESYLATE 10 MG TABLET PO SCH (08:34)
[2017-12-26] MEDS: FOLIC ACID 1 MG TABLET PO SCH (08:34)
[2017-12-26] MEDS: DULoxetine HCL 60 MG CAPSULE PO SCH (08:34)
[2017-12-26] MEDS: PANTOPRAZOLE SODIUM 40 MG DR TABLET PO SCH ×2 (08:34→16:17)
[2017-12-26] MEDS: QUEtiapine FUMARATE 100 MG TABLET PO SCH ×3 (08:35→16:16)
[2017-12-26] MEDS: APIXABAN 5 MG TABLET PO SCH ×2 (08:35→16:16)
[2017-12-26] MEDS: LORazepam 1 MG TABLET PO PRN ×2 (08:37→16:17)
[2017-12-26] MEDS: MULTIVITAMINS WITH MINERALS, THERAPEUTIC TABLET PO SCH (08:39)
[2017-12-26 11:48] VITALS: BP 136/72
[2017-12-26 16:49] VITALS: BP 128/79
[2017-12-26] MEDS: QUEtiapine FUMARATE 300 MG TABLET PO SCH (21:51)
[2017-12-26] MEDS: DOCUSATE SODIUM 250 MG CAPSULE PO SCH (21:51)
[2017-12-26] MEDS: ZOLPIDEM TARTRATE 10 MG TABLET PO PRN (22:18)
[2017-12-27] MEDS: APIXABAN 5 MG TABLET PO SCH ×2 (08:16→16:06)
[2017-12-27] MEDS: GABAPENTIN 400 MG CAPSULE PO SCH ×3 (08:17→16:06)
[2017-12-27] MEDS: DULoxetine HCL 60 MG CAPSULE PO SCH (08:17)
[2017-12-27] MEDS: LORazepam 1 MG TABLET PO PRN ×2 (08:17→16:08)
[2017-12-27] MEDS: FOLIC ACID 1 MG TABLET PO SCH (08:17)
[2017-12-27] MEDS: AmLODIPine BESYLATE 10 MG TABLET PO SCH (08:17)
[2017-12-27] MEDS: PANTOPRAZOLE SODIUM 40 MG DR TABLET PO SCH ×2 (08:17→16:06)
[2017-12-27] MEDS: QUEtiapine FUMARATE 100 MG TABLET PO SCH ×3 (08:17→16:06)
[2017-12-27] MEDS: THIAMINE HCL 100 MG TABLET PO SCH (08:17)
[2017-12-27] MEDS: CHOLECALCIFEROL (VIT D3) 1,000 UNITS TABLET PO SCH ×2 (08:17→16:06)
[2017-12-27] MEDS: MULTIVITAMINS WITH MINERALS, THERAPEUTIC TABLET PO SCH (08:20)
[2017-12-27 10:43] VITALS: BP 110/71
[2017-12-27 18:00] VITALS: BP 106/60
[2017-12-27] MEDS: ZOLPIDEM TARTRATE 10 MG TABLET PO PRN (20:05)
[2017-12-27] MEDS: QUEtiapine FUMARATE 300 MG TABLET PO SCH (20:06)
[2017-12-27] MEDS: DOCUSATE SODIUM 250 MG CAPSULE PO SCH (20:06)
[2017-12-28] MEDS: GABAPENTIN 400 MG CAPSULE PO SCH ×3 (08:04→16:05)
[2017-12-28] MEDS: PANTOPRAZOLE SODIUM 40 MG DR TABLET PO SCH ×2 (08:04→16:06)
[2017-12-28] MEDS: AmLODIPine BESYLATE 10 MG TABLET PO SCH (08:04)
[2017-12-28] MEDS: DULoxetine HCL 60 MG CAPSULE PO SCH (08:04)
[2017-12-28] MEDS: QUEtiapine FUMARATE 100 MG TABLET PO SCH ×3 (08:04→16:06)
[2017-12-28] MEDS: APIXABAN 5 MG TABLET PO SCH ×2 (08:04→16:06)
[2017-12-28] MEDS: CHOLECALCIFEROL (VIT D3) 1,000 UNITS TABLET PO SCH ×2 (08:04→16:05)
[2017-12-28] MEDS: LORazepam 1 MG TABLET PO PRN ×3 (08:06→20:20)
[2017-12-28] MEDS: MULTIVITAMINS WITH MINERALS, THERAPEUTIC TABLET PO SCH (09:00)
[2017-12-28 09:03] VITALS: BP 121/65
[2017-12-28] MEDS: MAG HYDROX/AL HYDROX/SIMETH ES 30 ML SUSPENSION UDCUP PO PRN (11:31)
[2017-12-28] MEDS: MAGNESIUM HYDROXIDE SUSPENSION 30 ML UDCUP PO PRN (11:31)
[2017-12-28] MEDS: SUCRALFATE 1 GM/10 ML SUSPENSION UDCUP PO SCH ×2 (13:01→16:06)
[2017-12-28 17:14] VITALS: BP 108/76
[2017-12-28] MEDS: DOCUSATE SODIUM 250 MG CAPSULE PO SCH (20:20)
[2017-12-28] MEDS: QUEtiapine FUMARATE 300 MG TABLET PO SCH (20:20)
[2017-12-28] MEDS: ZOLPIDEM TARTRATE 10 MG TABLET PO PRN (23:33)
[2017-12-28 23:35] VITALS: BP 118/81
[2017-12-29] MEDS: CHOLECALCIFEROL (VIT D3) 1,000 UNITS TABLET PO SCH ×2 (09:28→16:03)
[2017-12-29] MEDS: GABAPENTIN 400 MG CAPSULE PO SCH ×3 (09:28→16:03)
[2017-12-29] MEDS: DULoxetine HCL 60 MG CAPSULE PO SCH (09:28)
[2017-12-29] MEDS: SUCRALFATE 1 GM/10 ML SUSPENSION UDCUP PO SCH ×3 (09:29→16:03)
[2017-12-29] MEDS: AmLODIPine BESYLATE 10 MG TABLET PO SCH (09:29)
[2017-12-29] MEDS: LORazepam 1 MG TABLET PO PRN (09:29)
[2017-12-29] MEDS: QUEtiapine FUMARATE 100 MG TABLET PO SCH ×3 (09:29→16:04)
[2017-12-29] MEDS: PANTOPRAZOLE SODIUM 40 MG DR TABLET PO SCH ×2 (09:29→16:03)
[2017-12-29] MEDS: APIXABAN 5 MG TABLET PO SCH ×2 (09:29→16:03)
[2017-12-29] MEDS: MULTIVITAMINS WITH MINERALS, THERAPEUTIC TABLET PO SCH (09:32)
[2017-12-29 12:35] VITALS: BP 124/68
[2017-12-29] MEDS: QUEtiapine FUMARATE 25 MG TABLET PO SCH (16:03)
[2017-12-29 17:15] VITALS: BP 99/68
[2017-12-29] MEDS: QUEtiapine FUMARATE 300 MG TABLET PO SCH (20:34)
[2017-12-29] MEDS: ZOLPIDEM TARTRATE 10 MG TABLET PO PRN (20:34)
[2017-12-29] MEDS: DOCUSATE SODIUM 250 MG CAPSULE PO SCH (20:35)
[2017-12-30 01:23] VITALS: BP 99/67
[2017-12-30] MEDS: LORazepam 1 MG TABLET PO PRN ×3 (01:27→16:27)
[2017-12-30 09:13] VITALS: BP 115/71
[2017-12-30] MEDS: GABAPENTIN 400 MG CAPSULE PO SCH ×3 (09:14→16:26)
[2017-12-30] MEDS: DULoxetine HCL 20 MG CAPSULE PO SCH (09:14)
[2017-12-30] MEDS: QUEtiapine FUMARATE 100 MG TABLET PO SCH ×3 (09:15→16:26)
[2017-12-30] MEDS: MULTIVITAMINS WITH MINERALS, THERAPEUTIC TABLET PO SCH (09:15)
[2017-12-30] MEDS: CHOLECALCIFEROL (VIT D3) 1,000 UNITS TABLET PO SCH ×2 (09:15→16:26)
[2017-12-30] MEDS: QUEtiapine FUMARATE 25 MG TABLET PO SCH ×3 (09:15→16:27)
[2017-12-30] MEDS: PANTOPRAZOLE SODIUM 40 MG DR TABLET PO SCH ×2 (09:15→16:26)
[2017-12-30] MEDS: AmLODIPine BESYLATE 10 MG TABLET PO SCH (09:15)
[2017-12-30] MEDS: SUCRALFATE 1 GM/10 ML SUSPENSION UDCUP PO SCH ×3 (09:16→16:27)
[2017-12-30] MEDS: APIXABAN 5 MG TABLET PO SCH ×2 (09:16→16:26)
[2017-12-30 16:31] VITALS: BP 122/69
[2017-12-30] MEDS: QUEtiapine FUMARATE 300 MG TABLET PO SCH (21:05)
[2017-12-30] MEDS: DOCUSATE SODIUM 250 MG CAPSULE PO SCH (21:05)
[2017-12-30] MEDS: ZOLPIDEM TARTRATE 10 MG TABLET PO PRN (21:37)
[2017-12-31] MEDS: DULoxetine HCL 20 MG CAPSULE PO SCH (08:17)
[2017-12-31] MEDS: SUCRALFATE 1 GM/10 ML SUSPENSION UDCUP PO SCH ×3 (08:17→17:10)
[2017-12-31] MEDS: MULTIVITAMINS WITH MINERALS, THERAPEUTIC TABLET PO SCH (08:18)
[2017-12-31] MEDS: QUEtiapine FUMARATE 25 MG TABLET PO SCH ×3 (08:18→16:22)
[2017-12-31] MEDS: APIXABAN 5 MG TABLET PO SCH ×2 (08:18→16:21)
[2017-12-31] MEDS: PANTOPRAZOLE SODIUM 40 MG DR TABLET PO SCH ×2 (08:18→16:21)
[2017-12-31] MEDS: CHOLECALCIFEROL (VIT D3) 1,000 UNITS TABLET PO SCH ×2 (08:18→16:22)
[2017-12-31] MEDS: GABAPENTIN 400 MG CAPSULE PO SCH ×3 (08:18→16:21)
[2017-12-31] MEDS: AmLODIPine BESYLATE 10 MG TABLET PO SCH (08:18)
[2017-12-31] MEDS: QUEtiapine FUMARATE 100 MG TABLET PO SCH ×3 (08:18→16:22)
[2017-12-31] MEDS: LORazepam 1 MG TABLET PO PRN ×2 (08:19→16:22)
[2017-12-31 10:35] VITALS: BP 117/72
[2017-12-31] MEDS: DOCUSATE SODIUM 250 MG CAPSULE PO SCH (20:37)
[2017-12-31] MEDS: QUEtiapine FUMARATE 300 MG TABLET PO SCH (20:37)
[2017-12-31 21:34] VITALS: BP 105/60
[2018-01-01 01:11] VITALS: BP 101/62
[2018-01-01] MEDS: ACETAMINOPHEN 325 MG TABLET PO PRN (01:11)
[2018-01-01] MEDS: DULoxetine HCL 20 MG CAPSULE PO SCH (08:14)
[2018-01-01] MEDS: GABAPENTIN 400 MG CAPSULE PO SCH ×3 (08:14→16:03)
[2018-01-01] MEDS: QUEtiapine FUMARATE 25 MG TABLET PO SCH ×3 (08:14→16:03)
[2018-01-01] MEDS: SUCRALFATE 1 GM/10 ML SUSPENSION UDCUP PO SCH ×3 (08:15→16:01)
[2018-01-01] MEDS: PANTOPRAZOLE SODIUM 40 MG DR TABLET PO SCH ×2 (08:15→16:03)
[2018-01-01] MEDS: MULTIVITAMINS WITH MINERALS, THERAPEUTIC TABLET PO SCH (08:15)
[2018-01-01] MEDS: CHOLECALCIFEROL (VIT D3) 1,000 UNITS TABLET PO SCH ×2 (08:15→16:03)
[2018-01-01] MEDS: APIXABAN 5 MG TABLET PO SCH ×2 (08:15→16:01)
[2018-01-01] MEDS: AmLODIPine BESYLATE 10 MG TABLET PO SCH (08:15)
[2018-01-01] MEDS: QUEtiapine FUMARATE 100 MG TABLET PO SCH ×3 (08:15→16:03)
[2018-01-01] MEDS: LORazepam 1 MG TABLET PO PRN ×2 (08:16→16:03)
[2018-01-01 09:21] VITALS: BP 126/70
[2018-01-01] MEDS: QUEtiapine FUMARATE 300 MG TABLET PO SCH (20:10)
[2018-01-01] MEDS: DOCUSATE SODIUM 250 MG CAPSULE PO SCH (20:10)
[2018-01-01 20:44] VITALS: BP 113/64
[2018-01-02] MEDS: MAG HYDROX/AL HYDROX/SIMETH ES 30 ML SUSPENSION UDCUP PO PRN (03:30)
[2018-01-02] MEDS: ACETAMINOPHEN 325 MG TABLET PO PRN (03:30)
[2018-01-02] MEDS: LORazepam 1 MG TABLET PO PRN ×2 (09:48→20:13)
[2018-01-02] MEDS: APIXABAN 5 MG TABLET PO SCH ×2 (10:00→17:31)
[2018-01-02] MEDS: CHOLECALCIFEROL (VIT D3) 1,000 UNITS TABLET PO SCH ×2 (10:00→16:24)
[2018-01-02] MEDS: PANTOPRAZOLE SODIUM 40 MG DR TABLET PO SCH ×2 (10:00→16:24)
[2018-01-02] MEDS: GABAPENTIN 400 MG CAPSULE PO SCH ×3 (10:00→16:23)
[2018-01-02] MEDS: MULTIVITAMINS WITH MINERALS, THERAPEUTIC TABLET PO SCH (10:01)
[2018-01-02] MEDS: DULoxetine HCL 20 MG CAPSULE PO SCH (10:01)
[2018-01-02] MEDS: QUEtiapine FUMARATE 100 MG TABLET PO SCH ×3 (10:01→16:24)
[2018-01-02] MEDS: AmLODIPine BESYLATE 10 MG TABLET PO SCH (10:01)
[2018-01-02] MEDS: SUCRALFATE 1 GM/10 ML SUSPENSION UDCUP PO SCH ×3 (10:02→16:23)
[2018-01-02] MEDS: QUEtiapine FUMARATE 25 MG TABLET PO SCH ×3 (10:04→16:23)
[2018-01-02 10:30] VITALS: BP 132/73
[2018-01-02] MEDS: DOCUSATE SODIUM 250 MG CAPSULE PO SCH (20:13)
[2018-01-02] MEDS: QUEtiapine FUMARATE 300 MG TABLET PO SCH (20:13)
[2018-01-02 20:38] VITALS: BP 124/76
[2018-01-03 08:00] VITALS: BP 129/77
[2018-01-03] MEDS: SUCRALFATE 1 GM/10 ML SUSPENSION UDCUP PO SCH ×3 (09:04→16:56)
[2018-01-03] MEDS: APIXABAN 5 MG TABLET PO SCH ×2 (09:04→16:57)
[2018-01-03] MEDS: LORazepam 1 MG TABLET PO PRN (09:04)
[2018-01-03] MEDS: AmLODIPine BESYLATE 10 MG TABLET PO SCH (09:05)
[2018-01-03] MEDS: PANTOPRAZOLE SODIUM 40 MG DR TABLET PO SCH ×2 (09:05→17:00)
[2018-01-03] MEDS: QUEtiapine FUMARATE 100 MG TABLET PO SCH ×3 (09:05→17:00)
[2018-01-03] MEDS: DULoxetine HCL 20 MG CAPSULE PO SCH (09:05)
[2018-01-03] MEDS: QUEtiapine FUMARATE 25 MG TABLET PO SCH ×3 (09:05→17:01)
[2018-01-03] MEDS: GABAPENTIN 400 MG CAPSULE PO SCH ×3 (09:05→17:00)
[2018-01-03] MEDS: MULTIVITAMINS WITH MINERALS, THERAPEUTIC TABLET PO SCH (09:05)
[2018-01-03] MEDS: CHOLECALCIFEROL (VIT D3) 1,000 UNITS TABLET PO SCH ×2 (09:05→17:01)
[2018-01-03] MEDS ORDERED: QUET300T18 PO (14:40)
[2018-01-03] MEDS ORDERED: QUET100T33 PO (14:40)
[2018-01-03] MEDS ORDERED: GABA-533 PO (14:40)
[2018-01-03] MEDS ORDERED: QUET25TA34 PO (14:40)
[2018-01-03] MEDS ORDERED: DULO20CA30 PO (14:40)
[2018-01-03] MEDS ORDERED: SUCR1TAB28 PO (16:20)
== END 2018-01-03 17:35 | disposition home or self-care (01) | DRG 753 ==
LOC: EMS 14:52 → 3EI 21:16
PROVIDERS: ADMIT Psychiatry & Neurology Psychiatry; ATTEND Psychiatry & Neurology Psychiatry
DX: F31.9 Bipolar disorder, unspecified (principal); G62.9 Polyneuropathy, unspecified; F11.20 Opioid dependence, uncomplicated; R45.851 Suicidal ideations; K22.2 Esophageal obstruction; Z93.1 Gastrostomy status; K21.9 Gastro-esophageal reflux disease without esophagitis; M19.90 Unspecified osteoarthritis, unspecified site; J44.9 Chronic obstructive pulmonary disease, unspecified; R26.9 Unspecified abnormalities of gait and mobility; R79.89 Other specified abnormal findings of blood chemistry; F60.3 Borderline personality disorder; D64.9 Anemia, unspecified; E55.9 Vitamin D deficiency, unspecified; G89.29 Other chronic pain; I10 Essential (primary) hypertension; F41.9 Anxiety disorder, unspecified; N39.0 Urinary tract infection, site not specified; Z85.41 Personal history of malignant neoplasm of cervix uteri; Z91.19 Patient's noncompliance with other medical treatment and regimen; Z86.711 Personal history of pulmonary embolism; Z90.710 Acquired absence of both cervix and uterus; Z79.01 Long term (current) use of anticoagulants; Z79.899 Other long term (current) drug therapy; Z86.718 Personal history of other venous thrombosis and embolism; Z71.51 Drug abuse counseling and surveillance of drug abuser; Z28.21 Immunization not carried out because of patient refusal
CPT/HCPCS: 76700; 83605; 83735; 84145; 84436; 84439; 85379; 85651; 86140; 87081; 87086; 90686; 99285; G0480

== ENCOUNTER 2018-01-04 12:32 | Inpatient (IN) | payer MEDICARE, MEDICAID ==
[~2018-01-04] VITALS: Ht 172.7 cm; Wt 77.1 kg
[~2018-01-04 12:32] MED LIST changes: -CARB200T6 PO; +DULO20CA30 PO; -DULO60CA44 PO; -OXCA300T28 PO; +QUET100T33 PO; +SUCR1TAB28 PO
[2018-01-04 13:12] LABS: BASOPHILS % (AUTO) 1.4 % (0.0-2.0); EOSINOPHILS % (AUTO) 3.4 % (1.0-6.0); HEMATOCRIT 31.6 % (36-46); HEMOGLOBIN 10.3 g/dL (12.0-16.0); LYMPHOCYTES # (AUTO) 2.8 K/uL (1.0-4.8); LYMPHOCYTES % (AUTO) 49.6 % (22.0-44.0); MEAN CORPUSCULAR HEMOGLOBIN 27.8 pg (26.0-34.0); MEAN CORPUSCULAR HGB CONC 32.6 G/dL (31.0-37.0); MEAN CORPUSCULAR VOLUME 85 fL (80-100); MONOCYTES # (AUTO) 0.4 K/uL (0.1-1.0); MONOCYTES % (AUTO) 7.8 % (2.0-9.0); NEUTROPHILS # (AUTO) 2.1 K/uL (1.8-7.7); NEUTROPHILS % (AUTO) 37.8 % (40.0-70.0); PLATELET COUNT (AUTO) 610 K/uL (150-450); RED BLOOD CELL COUNT(AUTO) 3.71 MIL/uL (4.00-5.20)
[2018-01-04 13:22] LABS: ANION GAP 10 mmol/L (8-16); CALCIUM, TOTAL 8.2 mg/dL (8.8-10.5); CARBON DIOXIDE 24 mmol/L (22-29); CHLORIDE 105 mmol/L (98-107); CREATININE 0.97 mg/dL (0.60-1.30); GLOMERULAR FILTR. RATE CALC 57 mL/min (>60); GLUCOSE,RANDOM 100 mg/dL (70-110); POTASSIUM 4.4 mmol/L (3.5-5.1); SODIUM SERUM 139 mmol/L (136-145); UREA NITROGEN, BLOOD 26 mg/dL (7-18)
[2018-01-04 13:27] LABS: ALANINE AMINOTRANSFERASE 42 U/L (12-78); ALBUMIN 3.4 g/dL (3.4-5.0); ALKALINE PHOSPHATASE 182 U/L (46-116); ASPARTATE AMINOTRANSFERASE 27 U/L (15-37); BILIRUBIN,TOTAL 0.2 mg/dL (0.1-1.0)
[2018-01-04 13:53] LABS: APPEARANCE,URINE CLEAR (CLEAR); BILIRUBIN,URINE NEGATIVE (NEGATIVE); GLUCOSE, URINE (UA) NEGATIVE (NEGATIVE); KETONES,URINE NEGATIVE (NEGATIVE); LEUKOCYTE ESTERASE ,URINE NEGATIVE (NEGATIVE); NITRATE,URINE NEGATIVE (NEGATIVE); OCCULT BLOOD,URINE NEGATIVE (NEGATIVE); PH,URINE 6.5 (5.0-8.0); PROTEIN,URINE NEGATIVE (NEGATIVE); UROBILINOGEN,URINE 0.2 mg/dL (<=1.0)
[2018-01-04 13:57] LABS: AMPHET/METH SCREEN,URINE NEGATIVE (NEGATIVE); BARBITURATE SCREEN, URINE NEGATIVE (NEGATIVE); BENZODIAZEPINES SCREEN,URINE NEGATIVE (NEGATIVE); CANNABINOID SCREEN,URINE NEGATIVE (NEGATIVE); COCAINE SCREEN,URINE NEGATIVE (NEGATIVE); METHADONE SCREEN, URINE NEGATIVE (NEGATIVE); OPIATE SCREEN,URINE NEGATIVE (NEGATIVE)
[2018-01-04 13:58] LABS: PHENCYCLIDINE SCREEN,URINE NEGATIVE (NEGATIVE)
[2018-01-04] MEDS ORDERED: LORazepam 1 MG TABLET PO ONE (14:30)
[2018-01-04] MEDS ORDERED: QUEtiapine FUMARATE 100 MG TABLET PO ONE (14:30)
[2018-01-04] MEDS ORDERED: LORazepam 1 MG TABLET PO PRN (15:45)
[2018-01-04] MEDS ORDERED: LORazepam 2 MG TABLET PO PRN (15:45)
[2018-01-04] MEDS ORDERED: QUEtiapine FUMARATE 100 MG TABLET PO PRN (15:45)
[2018-01-04] MEDS: GABAPENTIN 400 MG CAPSULE PO SCH ×3 (17:00→18:16)
[2018-01-04] MEDS: QUEtiapine FUMARATE 100 MG TABLET PO SCH ×2 (18:17→18:23)
[2018-01-04] MEDS: QUEtiapine FUMARATE 25 MG TABLET PO SCH ×2 (18:17→18:23)
[2018-01-04 19:50] VITALS: BP 145/78
[2018-01-04] MEDS: DOCUSATE SODIUM 250 MG CAPSULE PO SCH (21:14)
[2018-01-04] MEDS: LORazepam 1 MG TABLET PO PRN (21:53)
[2018-01-05] MEDS: QUEtiapine FUMARATE 100 MG TABLET PO SCH ×3 (07:58→16:15)
[2018-01-05] MEDS: CHOLECALCIFEROL (VIT D3) 1,000 UNITS TABLET PO SCH ×2 (07:59→16:15)
[2018-01-05] MEDS: APIXABAN 5 MG TABLET PO SCH ×2 (07:59→16:15)
[2018-01-05] MEDS: GABAPENTIN 400 MG CAPSULE PO SCH ×3 (07:59→16:15)
[2018-01-05] MEDS: PANTOPRAZOLE SODIUM 40 MG DR TABLET PO SCH ×2 (07:59→16:15)
[2018-01-05] MEDS: LORazepam 1 MG TABLET PO PRN ×2 (08:01→20:14)
[2018-01-05] MEDS ORDERED: LORazepam 2 MG/ML VIAL IVP PRN (10:15)
[2018-01-05] MEDS ORDERED: IOVERSOL 350 MG/ML 150 ML VIAL ONE (12:28)
[2018-01-05] MEDS ORDERED: SODIUM CHLORIDE 0.9% 100 ML ONE (12:28)
[2018-01-05 13:00] VITALS: BP 140/74
[2018-01-05] MEDS: DULoxetine HCL 60 MG CAPSULE PO SCH (13:45)
[2018-01-05] MEDS: DULoxetine HCL 20 MG CAPSULE PO SCH (13:45)
[2018-01-05 19:35] VITALS: BP 96/61
[2018-01-05] MEDS: DOCUSATE SODIUM 250 MG CAPSULE PO SCH (20:14)
[2018-01-06 09:00] VITALS: BP 145/68
[2018-01-06] MEDS: DULoxetine HCL 60 MG CAPSULE PO SCH (09:20)
[2018-01-06] MEDS: PANTOPRAZOLE SODIUM 40 MG DR TABLET PO SCH ×2 (09:21→16:21)
[2018-01-06] MEDS: APIXABAN 5 MG TABLET PO SCH (09:21)
[2018-01-06] MEDS: CHOLECALCIFEROL (VIT D3) 1,000 UNITS TABLET PO SCH ×2 (09:21→16:21)
[2018-01-06] MEDS: DULoxetine HCL 20 MG CAPSULE PO SCH (09:21)
[2018-01-06] MEDS: GABAPENTIN 400 MG CAPSULE PO SCH ×3 (09:21→16:21)
[2018-01-06] MEDS: QUEtiapine FUMARATE 100 MG TABLET PO SCH ×3 (09:22→16:21)
[2018-01-06] MEDS: LORazepam 1 MG TABLET PO PRN ×2 (09:22→16:20)
[2018-01-06] MEDS ORDERED: MAGNESIUM HYDROXIDE SUSPENSION 30 ML UDCUP PO PRN (17:30)
[2018-01-06] MEDS ORDERED: GuaiFENesin/D-METHORPHAN [SUGAR-FREE] 200-20MG/10 ML SYRUP UDCUP PO PRN (17:30)
[2018-01-06] MEDS ORDERED: PROMETHAZINE HCL 25 MG TABLET PO PRN (17:30)
[2018-01-06 19:13] VITALS: BP 109/66
[2018-01-06] MEDS: DOCUSATE SODIUM 250 MG CAPSULE PO SCH (21:05)
[2018-01-06] MEDS: ZOLPIDEM TARTRATE 5 MG TABLET PO PRN (21:06)
[2018-01-06] MEDS: QUEtiapine FUMARATE 300 MG TABLET PO SCH (21:06)
[2018-01-07 08:46] VITALS: BP 120/71
[2018-01-07] MEDS: FOLIC ACID 1 MG TABLET PO SCH (09:06)
[2018-01-07] MEDS: QUEtiapine FUMARATE 25 MG TABLET PO SCH ×3 (09:06→16:50)
[2018-01-07] MEDS: CHOLECALCIFEROL (VIT D3) 1,000 UNITS TABLET PO SCH ×2 (09:06→16:49)
[2018-01-07] MEDS: MULTIVITAMINS WITH MINERALS, THERAPEUTIC TABLET PO SCH (09:06)
[2018-01-07] MEDS: THIAMINE HCL 100 MG TABLET PO SCH ×2 (09:06→16:50)
[2018-01-07] MEDS: DULoxetine HCL 60 MG CAPSULE PO SCH (09:07)
[2018-01-07] MEDS: DULoxetine HCL 20 MG CAPSULE PO SCH (09:07)
[2018-01-07] MEDS: PANTOPRAZOLE SODIUM 40 MG DR TABLET PO SCH ×2 (09:07→16:50)
[2018-01-07] MEDS: GABAPENTIN 400 MG CAPSULE PO SCH ×3 (09:07→16:50)
[2018-01-07] MEDS: HydrOXYzine PAMOATE 50 MG CAPSULE PO PRN (09:09)
[2018-01-07] MEDS: LORazepam 1 MG TABLET PO PRN ×2 (09:09→16:49)
[2018-01-07] MEDS: ACETAMINOPHEN 325 MG TABLET PO PRN (11:42)
[2018-01-07] MEDS: MAG HYDROX/AL HYDROX/SIMETH ES 30 ML SUSPENSION UDCUP PO PRN (13:34)
[2018-01-07 16:51] VITALS: BP 121/78
[2018-01-07] MEDS: DOCUSATE SODIUM 250 MG CAPSULE PO SCH (20:27)
[2018-01-07] MEDS: QUEtiapine FUMARATE 300 MG TABLET PO SCH (20:27)
[2018-01-07] MEDS: ZOLPIDEM TARTRATE 5 MG TABLET PO PRN (20:27)
[2018-01-08] MEDS: DULoxetine HCL 60 MG CAPSULE PO SCH (08:27)
[2018-01-08] MEDS: MULTIVITAMINS WITH MINERALS, THERAPEUTIC TABLET PO SCH (08:28)
[2018-01-08] MEDS: GABAPENTIN 400 MG CAPSULE PO SCH ×3 (08:28→16:07)
[2018-01-08] MEDS: THIAMINE HCL 100 MG TABLET PO SCH ×2 (08:28→16:07)
[2018-01-08] MEDS: FOLIC ACID 1 MG TABLET PO SCH (08:28)
[2018-01-08] MEDS: QUEtiapine FUMARATE 25 MG TABLET PO SCH ×3 (08:28→16:06)
[2018-01-08] MEDS: DULoxetine HCL 20 MG CAPSULE PO SCH (08:28)
[2018-01-08] MEDS: CHOLECALCIFEROL (VIT D3) 1,000 UNITS TABLET PO SCH ×2 (08:28→16:07)
[2018-01-08] MEDS: PANTOPRAZOLE SODIUM 40 MG DR TABLET PO SCH ×2 (08:29→16:07)
[2018-01-08] MEDS: LORazepam 1 MG TABLET PO PRN ×3 (08:30→20:37)
[2018-01-08 08:47] VITALS: BP 131/81
[2018-01-08] MEDS: MAG HYDROX/AL HYDROX/SIMETH ES 30 ML SUSPENSION UDCUP PO PRN ×2 (09:43→16:06)
[2018-01-08] MEDS: HydrOXYzine PAMOATE 50 MG CAPSULE PO PRN (12:54)
[2018-01-08 19:32] VITALS: BP 136/79
[2018-01-08] MEDS: QUEtiapine FUMARATE 300 MG TABLET PO SCH (20:37)
[2018-01-08] MEDS: DOCUSATE SODIUM 250 MG CAPSULE PO SCH (20:37)
[2018-01-08] MEDS: ZOLPIDEM TARTRATE 5 MG TABLET PO PRN (20:37)
[2018-01-09] MEDS: GABAPENTIN 400 MG CAPSULE PO SCH ×3 (09:00→16:16)
[2018-01-09] MEDS: FOLIC ACID 1 MG TABLET PO SCH (09:00)
[2018-01-09] MEDS: THIAMINE HCL 100 MG TABLET PO SCH ×2 (09:00→16:16)
[2018-01-09] MEDS: DULoxetine HCL 20 MG CAPSULE PO SCH (09:00)
[2018-01-09] MEDS: LORazepam 1 MG TABLET PO PRN ×3 (09:00→20:28)
[2018-01-09] MEDS: MULTIVITAMINS WITH MINERALS, THERAPEUTIC TABLET PO SCH (09:00)
[2018-01-09] MEDS: PANTOPRAZOLE SODIUM 40 MG DR TABLET PO SCH ×2 (09:00→16:16)
[2018-01-09] MEDS: DULoxetine HCL 60 MG CAPSULE PO SCH (09:00)
[2018-01-09] MEDS: QUEtiapine FUMARATE 25 MG TABLET PO SCH ×3 (09:01→16:16)
[2018-01-09] MEDS: CHOLECALCIFEROL (VIT D3) 1,000 UNITS TABLET PO SCH ×2 (09:01→16:16)
[2018-01-09 10:20] VITALS: BP 123/83
[2018-01-09 10:27] VITALS: BP 123/83
[2018-01-09] MEDS: ACETAMINOPHEN 325 MG TABLET PO PRN (10:29)
[2018-01-09] MEDS: ZOLPIDEM TARTRATE 5 MG TABLET PO PRN (20:28)
[2018-01-09] MEDS: DOCUSATE SODIUM 250 MG CAPSULE PO SCH (20:28)
[2018-01-09] MEDS: QUEtiapine FUMARATE 300 MG TABLET PO SCH (20:28)
[2018-01-09 22:04] VITALS: BP 126/79
[2018-01-10 08:00] VITALS: BP 108/73
[2018-01-10] MEDS: FOLIC ACID 1 MG TABLET PO SCH (08:27)
[2018-01-10] MEDS: DULoxetine HCL 20 MG CAPSULE PO SCH (08:27)
[2018-01-10] MEDS: DULoxetine HCL 60 MG CAPSULE PO SCH (08:27)
[2018-01-10] MEDS: QUEtiapine FUMARATE 25 MG TABLET PO SCH ×3 (08:28→16:11)
[2018-01-10] MEDS: MULTIVITAMINS WITH MINERALS, THERAPEUTIC TABLET PO SCH (08:28)
[2018-01-10] MEDS: PANTOPRAZOLE SODIUM 40 MG DR TABLET PO SCH ×2 (08:28→16:11)
[2018-01-10] MEDS: CHOLECALCIFEROL (VIT D3) 1,000 UNITS TABLET PO SCH ×2 (08:28→16:12)
[2018-01-10] MEDS: GABAPENTIN 400 MG CAPSULE PO SCH ×3 (08:28→16:10)
[2018-01-10] MEDS: THIAMINE HCL 100 MG TABLET PO SCH ×2 (08:30→16:10)
[2018-01-10] MEDS: LORazepam 1 MG TABLET PO PRN (08:30)
[2018-01-10] MEDS: SUCRALFATE 1 GM/10 ML SUSPENSION UDCUP PO SCH ×2 (13:42→16:10)
[2018-01-10] MEDS: MAG HYDROX/AL HYDROX/SIMETH ES 30 ML SUSPENSION UDCUP PO PRN (19:52)
[2018-01-10] MEDS: QUEtiapine FUMARATE 300 MG TABLET PO SCH (20:16)
[2018-01-10] MEDS: DOCUSATE SODIUM 250 MG CAPSULE PO SCH (20:16)
[2018-01-10] MEDS: ZOLPIDEM TARTRATE 5 MG TABLET PO PRN (20:17)
[2018-01-10 21:30] VITALS: BP 112/87
[2018-01-11] MEDS: LORazepam 1 MG TABLET PO PRN ×3 (00:51→18:10)
[2018-01-11 01:53] VITALS: BP 103/67
[2018-01-11] MEDS: SUCRALFATE 1 GM/10 ML SUSPENSION UDCUP PO SCH ×3 (06:55→16:08)
[2018-01-11 08:10] VITALS: BP 120/75
[2018-01-11] MEDS: DULoxetine HCL 20 MG CAPSULE PO SCH (09:08)
[2018-01-11] MEDS: CHOLECALCIFEROL (VIT D3) 1,000 UNITS TABLET PO SCH ×2 (09:08→16:09)
[2018-01-11] MEDS: DULoxetine HCL 60 MG CAPSULE PO SCH (09:08)
[2018-01-11] MEDS: MULTIVITAMINS WITH MINERALS, THERAPEUTIC TABLET PO SCH (09:12)
[2018-01-11] MEDS: FOLIC ACID 1 MG TABLET PO SCH (09:12)
[2018-01-11] MEDS: QUEtiapine FUMARATE 25 MG TABLET PO SCH ×3 (09:12→16:09)
[2018-01-11] MEDS: GABAPENTIN 400 MG CAPSULE PO SCH ×3 (09:12→16:09)
[2018-01-11] MEDS: THIAMINE HCL 100 MG TABLET PO SCH ×2 (09:12→16:09)
[2018-01-11] MEDS: PANTOPRAZOLE SODIUM 40 MG DR TABLET PO SCH ×2 (09:12→16:09)
[2018-01-11 16:00] VITALS: BP 105/68
[2018-01-11] MEDS: QUEtiapine FUMARATE 300 MG TABLET PO SCH (20:11)
[2018-01-11] MEDS: ZOLPIDEM TARTRATE 5 MG TABLET PO PRN (20:12)
[2018-01-11] MEDS: DOCUSATE SODIUM 250 MG CAPSULE PO SCH (20:12)
[2018-01-12] MEDS: SUCRALFATE 1 GM/10 ML SUSPENSION UDCUP PO SCH ×3 (06:16→16:03)
[2018-01-12 08:50] VITALS: BP 128/74
[2018-01-12] MEDS: FOLIC ACID 1 MG TABLET PO SCH (09:06)
[2018-01-12] MEDS: DULoxetine HCL 60 MG CAPSULE PO SCH (09:06)
[2018-01-12] MEDS: GABAPENTIN 400 MG CAPSULE PO SCH ×3 (09:06→16:03)
[2018-01-12] MEDS: DULoxetine HCL 20 MG CAPSULE PO SCH (09:06)
[2018-01-12] MEDS: PANTOPRAZOLE SODIUM 40 MG DR TABLET PO SCH ×2 (09:07→16:04)
[2018-01-12] MEDS: LORazepam 1 MG TABLET PO PRN ×3 (09:07→20:22)
[2018-01-12] MEDS: MULTIVITAMINS WITH MINERALS, THERAPEUTIC TABLET PO SCH (09:07)
[2018-01-12] MEDS: THIAMINE HCL 100 MG TABLET PO SCH ×2 (09:07→16:04)
[2018-01-12] MEDS: CHOLECALCIFEROL (VIT D3) 1,000 UNITS TABLET PO SCH ×2 (09:07→16:04)
[2018-01-12] MEDS: QUEtiapine FUMARATE 25 MG TABLET PO SCH ×3 (09:07→16:04)
[2018-01-12 16:34] VITALS: BP 126/75
[2018-01-12] MEDS: QUEtiapine FUMARATE 300 MG TABLET PO SCH (20:22)
[2018-01-12] MEDS: DOCUSATE SODIUM 250 MG CAPSULE PO SCH (20:22)
[2018-01-12] MEDS: MAG HYDROX/AL HYDROX/SIMETH ES 30 ML SUSPENSION UDCUP PO PRN (20:24)
[2018-01-13 00:18] VITALS: BP 107/64
[2018-01-13] MEDS: ACETAMINOPHEN 325 MG TABLET PO PRN (00:22)
[2018-01-13] MEDS: SUCRALFATE 1 GM/10 ML SUSPENSION UDCUP PO SCH ×3 (06:52→16:48)
[2018-01-13 08:15] VITALS: BP 123/82
[2018-01-13] MEDS: PANTOPRAZOLE SODIUM 40 MG DR TABLET PO SCH ×2 (09:09→16:29)
[2018-01-13] MEDS: CHOLECALCIFEROL (VIT D3) 1,000 UNITS TABLET PO SCH ×2 (09:10→16:29)
[2018-01-13] MEDS: DULoxetine HCL 60 MG CAPSULE PO SCH (09:10)
[2018-01-13] MEDS: DULoxetine HCL 20 MG CAPSULE PO SCH (09:10)
[2018-01-13] MEDS: THIAMINE HCL 100 MG TABLET PO SCH ×2 (09:10→16:30)
[2018-01-13] MEDS: QUEtiapine FUMARATE 25 MG TABLET PO SCH ×3 (09:10→16:30)
[2018-01-13] MEDS: LORazepam 1 MG TABLET PO PRN ×3 (09:10→20:34)
[2018-01-13] MEDS: FOLIC ACID 1 MG TABLET PO SCH (09:10)
[2018-01-13] MEDS: MULTIVITAMINS WITH MINERALS, THERAPEUTIC TABLET PO SCH (09:12)
[2018-01-13] MEDS: GABAPENTIN 400 MG CAPSULE PO SCH ×3 (09:14→16:29)
[2018-01-13 18:26] VITALS: BP 122/72
[2018-01-13] MEDS: DOCUSATE SODIUM 250 MG CAPSULE PO SCH (20:34)
[2018-01-13] MEDS: QUEtiapine FUMARATE 300 MG TABLET PO SCH (20:34)
[2018-01-14] MEDS: SUCRALFATE 1 GM/10 ML SUSPENSION UDCUP PO SCH ×3 (06:53→16:47)
[2018-01-14 08:05] VITALS: BP 129/76
[2018-01-14] MEDS: DULoxetine HCL 60 MG CAPSULE PO SCH (08:59)
[2018-01-14] MEDS: THIAMINE HCL 100 MG TABLET PO SCH ×2 (08:59→16:48)
[2018-01-14] MEDS: CHOLECALCIFEROL (VIT D3) 1,000 UNITS TABLET PO SCH ×2 (08:59→16:47)
[2018-01-14] MEDS: QUEtiapine FUMARATE 25 MG TABLET PO SCH ×3 (08:59→16:47)
[2018-01-14] MEDS: DULoxetine HCL 20 MG CAPSULE PO SCH (08:59)
[2018-01-14] MEDS: PANTOPRAZOLE SODIUM 40 MG DR TABLET PO SCH ×2 (08:59→16:47)
[2018-01-14] MEDS: GABAPENTIN 400 MG CAPSULE PO SCH ×3 (08:59→16:47)
[2018-01-14] MEDS: FOLIC ACID 1 MG TABLET PO SCH (08:59)
[2018-01-14] MEDS: MULTIVITAMINS WITH MINERALS, THERAPEUTIC TABLET PO SCH (08:59)
[2018-01-14] MEDS: LORazepam 1 MG TABLET PO PRN ×3 (09:01→20:13)
[2018-01-14] MEDS ORDERED: GABA-533 PO ×2 (14:33→15:18)
[2018-01-14] MEDS ORDERED: DULO60CA44 PO (14:33)
[2018-01-14] MEDS ORDERED: DULO20CA30 PO (14:33)
[2018-01-14] MEDS ORDERED: QUET25TA34 PO (14:33)
[2018-01-14] MEDS ORDERED: QUET300T18 PO (14:33)
[2018-01-14] MEDS ORDERED: QUET25TA PO (15:07)
[2018-01-14] MEDS ORDERED: FOLI1 PO (15:12)
[2018-01-14] MEDS ORDERED: MULT-1239 PO (15:14)
[2018-01-14] MEDS ORDERED: THIA100T67 PO (15:17)
[2018-01-14 17:00] VITALS: BP 118/72
[2018-01-14] MEDS: QUEtiapine FUMARATE 300 MG TABLET PO SCH (20:13)
[2018-01-14] MEDS: DOCUSATE SODIUM 250 MG CAPSULE PO SCH (20:13)
[2018-01-15] MEDS: SUCRALFATE 1 GM/10 ML SUSPENSION UDCUP PO SCH ×2 (06:47→11:55)
[2018-01-15] MEDS ORDERED: BISACODYL 5 MG EC TABLET PO PRN (07:00)
[2018-01-15 08:30] VITALS: BP 149/78
[2018-01-15] MEDS: MULTIVITAMINS WITH MINERALS, THERAPEUTIC TABLET PO SCH (08:50)
[2018-01-15] MEDS: THIAMINE HCL 100 MG TABLET PO SCH (08:50)
[2018-01-15] MEDS: QUEtiapine FUMARATE 25 MG TABLET PO SCH (08:50)
[2018-01-15] MEDS: CHOLECALCIFEROL (VIT D3) 1,000 UNITS TABLET PO SCH (08:50)
[2018-01-15] MEDS: DULoxetine HCL 60 MG CAPSULE PO SCH (08:50)
[2018-01-15] MEDS: FOLIC ACID 1 MG TABLET PO SCH (08:50)
[2018-01-15] MEDS: DULoxetine HCL 20 MG CAPSULE PO SCH (08:50)
[2018-01-15] MEDS: LORazepam 1 MG TABLET PO PRN (08:51)
[2018-01-15] MEDS: GABAPENTIN 400 MG CAPSULE PO SCH (08:51)
[2018-01-15] MEDS: PANTOPRAZOLE SODIUM 40 MG DR TABLET PO SCH (08:51)
== END 2018-01-15 13:52 | disposition home or self-care (01) | DRG 753 ==
LOC: EMS 12:33 → 3EI 16:26
PROVIDERS: ADMIT Psychiatry & Neurology Psychiatry; ATTEND Psychiatry & Neurology Psychiatry
DX: F31.5 Bipolar disorder, current episode depressed, severe, with psychotic features (principal); D64.9 Anemia, unspecified; R45.851 Suicidal ideations; K22.2 Esophageal obstruction; J44.9 Chronic obstructive pulmonary disease, unspecified; F41.9 Anxiety disorder, unspecified; G89.29 Other chronic pain; E55.9 Vitamin D deficiency, unspecified; I10 Essential (primary) hypertension; K21.0 Gastro-esophageal reflux disease with esophagitis; K29.70 Gastritis, unspecified, without bleeding; M19.90 Unspecified osteoarthritis, unspecified site; M54.5 Low back pain; R26.9 Unspecified abnormalities of gait and mobility; F60.3 Borderline personality disorder; K58.9 Irritable bowel syndrome, unspecified; Z79.01 Long term (current) use of anticoagulants; Z85.41 Personal history of malignant neoplasm of cervix uteri; Z86.711 Personal history of pulmonary embolism; Z86.718 Personal history of other venous thrombosis and embolism; Z87.891 Personal history of nicotine dependence; Z90.710 Acquired absence of both cervix and uterus; Z91.14 Patient's other noncompliance with medication regimen; Z91.19 Patient's noncompliance with other medical treatment and regimen; Z90.49 Acquired absence of other specified parts of digestive tract; Z56.0 Unemployment, unspecified
CPT/HCPCS: 71275; 87081; G0480; J7050

== ENCOUNTER 2018-01-18 06:10 | Inpatient (IN) | payer MEDICARE, MEDICAID ==
[~2018-01-18] VITALS: Ht 172.7 cm; Wt 78.0 kg
[~2018-01-18 06:10] MED LIST changes: -AMLO-512 PO; -APIX5TAB PO; +DULO60CA44 PO; -MULT-1239 PO; -QUET100T33 PO; +QUET25TA PO
[2018-01-18 06:43] LABS: HEMATOCRIT 32.1 % (36-46); HEMOGLOBIN 10.4 g/dL (12.0-16.0); MEAN CORPUSCULAR HEMOGLOBIN 27.5 pg (26.0-34.0); MEAN CORPUSCULAR HGB CONC 32.5 G/dL (31.0-37.0); MEAN CORPUSCULAR VOLUME 85 fL (80-100); PLATELET COUNT (AUTO) 553 K/uL (150-450); RED BLOOD CELL COUNT(AUTO) 3.79 MIL/uL (4.00-5.20); RED CELL DISTRIBUTION WIDTH 20.6 % (11.5-14.5)
[2018-01-18 06:49] LABS: ANION GAP 10 mmol/L (8-16); CALCIUM, TOTAL 8.3 mg/dL (8.8-10.5); CARBON DIOXIDE 25 mmol/L (22-29); CHLORIDE 106 mmol/L (98-107); CREATININE 0.98 mg/dL (0.60-1.30); GLOMERULAR FILTR. RATE CALC 56 mL/min (>60); GLUCOSE,RANDOM 94 mg/dL (70-110); POTASSIUM 3.9 mmol/L (3.5-5.1); SODIUM SERUM 141 mmol/L (136-145); UREA NITROGEN, BLOOD 20 mg/dL (7-18)
[2018-01-18 06:49] LABS: AMPHET/METH SCREEN,URINE NEGATIVE (NEGATIVE); BARBITURATE SCREEN, URINE NEGATIVE (NEGATIVE); BENZODIAZEPINES SCREEN,URINE NEGATIVE (NEGATIVE); CANNABINOID SCREEN,URINE NEGATIVE (NEGATIVE); COCAINE SCREEN,URINE NEGATIVE (NEGATIVE); METHADONE SCREEN, URINE NEGATIVE (NEGATIVE); OPIATE SCREEN,URINE NEGATIVE (NEGATIVE)
[2018-01-18 06:54] LABS: ALANINE AMINOTRANSFERASE 43 U/L (12-78); ALBUMIN 3.4 g/dL (3.4-5.0); ALKALINE PHOSPHATASE 162 U/L (46-116); ASPARTATE AMINOTRANSFERASE 22 U/L (15-37); BILIRUBIN,TOTAL 0.3 mg/dL (0.1-1.0); TOTAL PROTEIN, SERUM 6.9 g/dL (6.4-8.2)
[2018-01-18 06:58] LABS: PHENCYCLIDINE SCREEN,URINE NEGATIVE (NEGATIVE)
[2018-01-18 07:05] LABS: SALICYLATE < 2.8 mg/dL (2.8-20.0)
[2018-01-18 07:08] LABS: ACETAMINOPHEN < 2 mcg/mL (10-30)
[2018-01-18 07:25] LABS: LYMPHOCYTES % (AUTO) 34.6 % (22.0-44.0); MONOCYTES % (AUTO) 6.5 % (2.0-9.0); NEUTROPHILS % (AUTO) 54.4 % (40.0-70.0)
[2018-01-18 07:26] LABS: BASOPHILS % (AUTO) 1.4 % (0.0-2.0); EOSINOPHILS % (AUTO) 3.1 % (1.0-6.0); LYMPHOCYTES # (AUTO) 2.6 K/uL (1.0-4.8); MONOCYTES # (AUTO) 0.5 K/uL (0.1-1.0); NEUTROPHILS # (AUTO) 4.1 K/uL (1.8-7.7)
[2018-01-18] MEDS ORDERED: LORazepam 1 MG TABLET PO ONE (09:15)
[2018-01-18] MEDS ORDERED: QUEtiapine FUMARATE 100 MG TABLET PO PRN (10:30)
[2018-01-18] MEDS: PANTOPRAZOLE SODIUM 40 MG DR TABLET PO SCH (16:14)
[2018-01-18] MEDS: QUEtiapine FUMARATE 25 MG TABLET PO SCH (16:14)
[2018-01-18] MEDS: BusPIRone HCL 10 MG TABLET PO SCH (16:14)
[2018-01-18] MEDS: CHOLECALCIFEROL (VIT D3) 1,000 UNITS TABLET PO SCH (16:14)
[2018-01-18] MEDS: SUCRALFATE 1 GM TABLET PO SCH (16:14)
[2018-01-18] MEDS: LORazepam 0.5 MG TABLET PO PRN (16:16)
[2018-01-18 16:57] VITALS: BP 114/66
[2018-01-18] MEDS: DOCUSATE SODIUM 250 MG CAPSULE PO SCH (20:22)
[2018-01-18] MEDS: ZOLPIDEM TARTRATE 5 MG TABLET PO PRN (20:23)
[2018-01-18] MEDS: QUEtiapine FUMARATE 100 MG TABLET PO SCH (20:23)
[2018-01-19] MEDS: SUCRALFATE 1 GM TABLET PO SCH ×3 (06:51→16:12)
[2018-01-19 08:05] VITALS: BP 132/80
[2018-01-19] MEDS: DULoxetine HCL 60 MG CAPSULE PO SCH (09:00)
[2018-01-19] MEDS: PANTOPRAZOLE SODIUM 40 MG DR TABLET PO SCH ×2 (09:00→16:12)
[2018-01-19] MEDS: CHOLECALCIFEROL (VIT D3) 1,000 UNITS TABLET PO SCH ×2 (09:01→16:12)
[2018-01-19] MEDS: BusPIRone HCL 10 MG TABLET PO SCH ×2 (09:01→16:13)
[2018-01-19] MEDS: QUEtiapine FUMARATE 25 MG TABLET PO SCH ×2 (09:01→16:13)
[2018-01-19] MEDS: LORazepam 0.5 MG TABLET PO PRN ×3 (09:03→20:30)
[2018-01-19] MEDS: GABAPENTIN 400 MG CAPSULE PO SCH ×2 (13:13→16:12)
[2018-01-19 17:42] VITALS: BP 118/67
[2018-01-19] MEDS: DOCUSATE SODIUM 250 MG CAPSULE PO SCH (20:30)
[2018-01-19] MEDS: QUEtiapine FUMARATE 100 MG TABLET PO SCH (20:30)
[2018-01-20] MEDS: SUCRALFATE 1 GM TABLET PO SCH ×3 (06:51→16:22)
[2018-01-20] MEDS: PANTOPRAZOLE SODIUM 40 MG DR TABLET PO SCH ×2 (09:00→16:23)
[2018-01-20] MEDS: DULoxetine HCL 60 MG CAPSULE PO SCH (09:00)
[2018-01-20] MEDS: GABAPENTIN 400 MG CAPSULE PO SCH ×3 (09:00→16:23)
[2018-01-20] MEDS: CHOLECALCIFEROL (VIT D3) 1,000 UNITS TABLET PO SCH ×2 (09:00→16:23)
[2018-01-20] MEDS: BusPIRone HCL 10 MG TABLET PO SCH ×2 (09:00→16:23)
[2018-01-20] MEDS: QUEtiapine FUMARATE 25 MG TABLET PO SCH ×2 (09:00→16:23)
[2018-01-20] MEDS: LORazepam 0.5 MG TABLET PO PRN ×2 (09:05→16:23)
[2018-01-20 09:21] VITALS: BP 142/82
[2018-01-20 16:30] VITALS: BP 145/83
[2018-01-20] MEDS: DOCUSATE SODIUM 250 MG CAPSULE PO SCH (20:24)
[2018-01-20] MEDS: ZOLPIDEM TARTRATE 5 MG TABLET PO PRN (20:27)
[2018-01-20] MEDS: QUEtiapine FUMARATE 200 MG TABLET PO SCH (20:30)
[2018-01-21] MEDS: SUCRALFATE 1 GM TABLET PO SCH ×3 (06:40→16:06)
[2018-01-21 08:05] VITALS: BP 118/70
[2018-01-21] MEDS: BusPIRone HCL 10 MG TABLET PO SCH ×2 (08:50→16:07)
[2018-01-21] MEDS: GABAPENTIN 400 MG CAPSULE PO SCH ×3 (08:50→16:07)
[2018-01-21] MEDS: PANTOPRAZOLE SODIUM 40 MG DR TABLET PO SCH ×2 (08:50→16:07)
[2018-01-21] MEDS: QUEtiapine FUMARATE 25 MG TABLET PO SCH ×2 (08:51→16:07)
[2018-01-21] MEDS: CHOLECALCIFEROL (VIT D3) 1,000 UNITS TABLET PO SCH ×2 (08:51→16:10)
[2018-01-21] MEDS: DULoxetine HCL 60 MG CAPSULE PO SCH (08:51)
[2018-01-21] MEDS: LORazepam 1 MG TABLET PO PRN ×3 (08:51→20:25)
[2018-01-21] MEDS ORDERED: MAG HYDROX/AL HYDROX/SIMETH 30 ML SUSP UDCUP PO PRN (11:30)
[2018-01-21] MEDS: QUEtiapine FUMARATE 200 MG TABLET PO SCH (20:24)
[2018-01-21] MEDS: DOCUSATE SODIUM 250 MG CAPSULE PO SCH (20:24)
[2018-01-21 22:14] VITALS: BP 111/67
[2018-01-22] MEDS: SUCRALFATE 1 GM TABLET PO SCH ×3 (07:02→16:11)
[2018-01-22] MEDS: GABAPENTIN 400 MG CAPSULE PO SCH ×3 (09:02→16:12)
[2018-01-22] MEDS: QUEtiapine FUMARATE 25 MG TABLET PO SCH ×2 (09:02→16:16)
[2018-01-22] MEDS: DULoxetine HCL 60 MG CAPSULE PO SCH (09:02)
[2018-01-22] MEDS: PANTOPRAZOLE SODIUM 40 MG DR TABLET PO SCH ×2 (09:02→16:12)
[2018-01-22] MEDS: CHOLECALCIFEROL (VIT D3) 1,000 UNITS TABLET PO SCH ×2 (09:02→16:12)
[2018-01-22] MEDS: LORazepam 1 MG TABLET PO PRN ×2 (09:02→16:17)
[2018-01-22] MEDS: BusPIRone HCL 10 MG TABLET PO SCH ×2 (09:14→16:11)
[2018-01-22 09:18] VITALS: BP 124/74
[2018-01-22 17:00] VITALS: BP 140/68
[2018-01-22] MEDS: DOCUSATE SODIUM 250 MG CAPSULE PO SCH (20:09)
[2018-01-22] MEDS: QUEtiapine FUMARATE 200 MG TABLET PO SCH (20:10)
[2018-01-22] MEDS: ZOLPIDEM TARTRATE 5 MG TABLET PO PRN (21:05)
[2018-01-23] MEDS: SUCRALFATE 1 GM TABLET PO SCH ×3 (07:02→16:08)
[2018-01-23] MEDS: QUEtiapine FUMARATE 25 MG TABLET PO SCH ×2 (08:50→16:08)
[2018-01-23] MEDS: CHOLECALCIFEROL (VIT D3) 1,000 UNITS TABLET PO SCH ×2 (08:51→16:09)
[2018-01-23] MEDS: GABAPENTIN 400 MG CAPSULE PO SCH ×3 (08:51→16:09)
[2018-01-23] MEDS: PANTOPRAZOLE SODIUM 40 MG DR TABLET PO SCH ×2 (08:51→16:09)
[2018-01-23] MEDS: BusPIRone HCL 10 MG TABLET PO SCH ×2 (08:51→16:08)
[2018-01-23] MEDS: DULoxetine HCL 60 MG CAPSULE PO SCH (08:52)
[2018-01-23] MEDS: LORazepam 1 MG TABLET PO PRN ×3 (08:54→20:55)
[2018-01-23 09:09] VITALS: BP 140/82
[2018-01-23 17:00] VITALS: BP 133/87
[2018-01-23] MEDS: QUEtiapine FUMARATE 200 MG TABLET PO SCH (20:55)
[2018-01-23] MEDS: DOCUSATE SODIUM 250 MG CAPSULE PO SCH (20:55)
[2018-01-24] MEDS: SUCRALFATE 1 GM TABLET PO SCH ×3 (06:53→16:48)
[2018-01-24] MEDS: PANTOPRAZOLE SODIUM 40 MG DR TABLET PO SCH ×2 (08:20→16:48)
[2018-01-24] MEDS: BusPIRone HCL 10 MG TABLET PO SCH ×2 (08:20→16:48)
[2018-01-24] MEDS: GABAPENTIN 400 MG CAPSULE PO SCH ×3 (08:20→16:47)
[2018-01-24] MEDS: QUEtiapine FUMARATE 25 MG TABLET PO SCH ×2 (08:20→17:00)
[2018-01-24] MEDS: CHOLECALCIFEROL (VIT D3) 1,000 UNITS TABLET PO SCH ×2 (08:20→16:47)
[2018-01-24] MEDS: DULoxetine HCL 60 MG CAPSULE PO SCH (08:20)
[2018-01-24] MEDS: LORazepam 1 MG TABLET PO PRN ×2 (08:22→16:51)
[2018-01-24 09:49] VITALS: BP 123/81
[2018-01-24] MEDS: QUEtiapine FUMARATE 200 MG TABLET PO SCH (20:35)
[2018-01-24] MEDS: DOCUSATE SODIUM 250 MG CAPSULE PO SCH (20:35)
[2018-01-24 23:23] VITALS: BP 119/72
[2018-01-25] MEDS: SUCRALFATE 1 GM TABLET PO SCH ×3 (07:06→16:11)
[2018-01-25 08:46] VITALS: BP 114/71
[2018-01-25] MEDS: CHOLECALCIFEROL (VIT D3) 1,000 UNITS TABLET PO SCH ×2 (08:50→16:10)
[2018-01-25] MEDS: DULoxetine HCL 60 MG CAPSULE PO SCH (08:51)
[2018-01-25] MEDS: PANTOPRAZOLE SODIUM 40 MG DR TABLET PO SCH ×2 (08:51→16:11)
[2018-01-25] MEDS: BusPIRone HCL 10 MG TABLET PO SCH ×2 (08:51→16:10)
[2018-01-25] MEDS: QUEtiapine FUMARATE 25 MG TABLET PO SCH ×2 (08:51→16:12)
[2018-01-25] MEDS: GABAPENTIN 400 MG CAPSULE PO SCH ×3 (08:51→16:11)
[2018-01-25] MEDS: LORazepam 1 MG TABLET PO PRN ×2 (08:52→16:15)
[2018-01-25 17:33] VITALS: BP 112/72
[2018-01-25] MEDS: DOCUSATE SODIUM 250 MG CAPSULE PO SCH (20:43)
[2018-01-25] MEDS: QUEtiapine FUMARATE 200 MG TABLET PO SCH (20:43)
[2018-01-25] MEDS: ZOLPIDEM TARTRATE 5 MG TABLET PO PRN (20:46)
[2018-01-26] MEDS: SUCRALFATE 1 GM TABLET PO SCH ×3 (06:59→16:36)
[2018-01-26 07:10] LABS: BASOPHILS % (AUTO) 0.9 % (0.0-2.0); EOSINOPHILS % (AUTO) 2.4 % (1.0-6.0); HEMATOCRIT 31.5 % (36-46); HEMOGLOBIN 10.3 g/dL (12.0-16.0); LYMPHOCYTES # (AUTO) 2.9 K/uL (1.0-4.8); LYMPHOCYTES % (AUTO) 57.3 % (22.0-44.0); MEAN CORPUSCULAR HEMOGLOBIN 27.3 pg (26.0-34.0); MEAN CORPUSCULAR HGB CONC 32.6 G/dL (31.0-37.0); MEAN CORPUSCULAR VOLUME 84 fL (80-100); MONOCYTES # (AUTO) 0.5 K/uL (0.1-1.0); MONOCYTES % (AUTO) 9.1 % (2.0-9.0); NEUTROPHILS # (AUTO) 1.5 K/uL (1.8-7.7); NEUTROPHILS % (AUTO) 30.3 % (40.0-70.0); PLATELET COUNT (AUTO) 578 K/uL (150-450); RED BLOOD CELL COUNT(AUTO) 3.76 MIL/uL (4.00-5.20); RED CELL DISTRIBUTION WIDTH 20.8 % (11.5-14.5)
[2018-01-26 07:32] LABS: BILIRUBIN,TOTAL 0.3 mg/dL (0.1-1.0); CALCIUM, TOTAL 8.5 mg/dL (8.8-10.5); CREATININE 0.93 mg/dL (0.60-1.30); POTASSIUM 4.1 mmol/L (3.5-5.1); TOTAL PROTEIN, SERUM 6.5 g/dL (6.4-8.2)
[2018-01-26] MEDS: DULoxetine HCL 60 MG CAPSULE PO SCH (08:56)
[2018-01-26] MEDS: LORazepam 1 MG TABLET PO PRN ×3 (08:56→21:04)
[2018-01-26] MEDS: GABAPENTIN 400 MG CAPSULE PO SCH ×3 (08:56→16:36)
[2018-01-26] MEDS: PANTOPRAZOLE SODIUM 40 MG DR TABLET PO SCH ×2 (08:57→16:37)
[2018-01-26] MEDS: QUEtiapine FUMARATE 25 MG TABLET PO SCH ×2 (08:57→16:37)
[2018-01-26] MEDS: BusPIRone HCL 10 MG TABLET PO SCH ×2 (08:57→16:36)
[2018-01-26] MEDS: CHOLECALCIFEROL (VIT D3) 1,000 UNITS TABLET PO SCH ×2 (08:57→16:37)
[2018-01-26 11:46] VITALS: BP_SYST 117; BP_SYST 118; BP_DIAS 75; BP_DIAS 78
[2018-01-26 18:35] VITALS: BP 140/86
[2018-01-26] MEDS: QUEtiapine FUMARATE 200 MG TABLET PO SCH (21:03)
[2018-01-26] MEDS: DOCUSATE SODIUM 250 MG CAPSULE PO SCH (21:05)
[2018-01-27] MEDS: SUCRALFATE 1 GM TABLET PO SCH ×3 (06:55→16:16)
[2018-01-27 08:00] VITALS: BP 138/78
[2018-01-27] MEDS: BusPIRone HCL 10 MG TABLET PO SCH ×2 (08:16→16:17)
[2018-01-27] MEDS: PANTOPRAZOLE SODIUM 40 MG DR TABLET PO SCH ×2 (08:18→16:16)
[2018-01-27] MEDS: DULoxetine HCL 60 MG CAPSULE PO SCH (08:18)
[2018-01-27] MEDS: QUEtiapine FUMARATE 25 MG TABLET PO SCH ×2 (08:18→16:17)
[2018-01-27] MEDS: CHOLECALCIFEROL (VIT D3) 1,000 UNITS TABLET PO SCH ×2 (08:18→16:17)
[2018-01-27] MEDS: GABAPENTIN 400 MG CAPSULE PO SCH ×3 (08:20→16:16)
[2018-01-27] MEDS: LORazepam 1 MG TABLET PO PRN ×3 (08:39→21:07)
[2018-01-27] MEDS: GABAPENTIN 300 MG CAPSULE PO SCH (17:00)
[2018-01-27 19:59] VITALS: BP 114/76
[2018-01-27] MEDS: QUEtiapine FUMARATE 200 MG TABLET PO SCH (21:07)
[2018-01-27] MEDS: DOCUSATE SODIUM 250 MG CAPSULE PO SCH (21:07)
[2018-01-28] MEDS: SUCRALFATE 1 GM TABLET PO SCH ×3 (06:51→16:03)
[2018-01-28 08:00] VITALS: BP 124/77
[2018-01-28] MEDS: PANTOPRAZOLE SODIUM 40 MG DR TABLET PO SCH ×2 (08:25→16:03)
[2018-01-28] MEDS: CHOLECALCIFEROL (VIT D3) 1,000 UNITS TABLET PO SCH ×2 (08:26→16:04)
[2018-01-28] MEDS: QUEtiapine FUMARATE 25 MG TABLET PO SCH ×2 (08:26→16:04)
[2018-01-28] MEDS: GABAPENTIN 300 MG CAPSULE PO SCH ×3 (08:26→16:04)
[2018-01-28] MEDS: DULoxetine HCL 60 MG CAPSULE PO SCH (08:26)
[2018-01-28] MEDS: BusPIRone HCL 10 MG TABLET PO SCH ×2 (08:27→16:04)
[2018-01-28] MEDS: LORazepam 1 MG TABLET PO PRN ×3 (08:29→21:34)
[2018-01-28 16:30] VITALS: BP 114/67
[2018-01-28] MEDS: DOCUSATE SODIUM 250 MG CAPSULE PO SCH (21:34)
[2018-01-28] MEDS: QUEtiapine FUMARATE 100 MG TABLET PO SCH (21:35)
[2018-01-29] MEDS: SUCRALFATE 1 GM TABLET PO SCH ×3 (07:10→16:08)
[2018-01-29] MEDS: LORazepam 1 MG TABLET PO PRN ×3 (08:23→21:21)
[2018-01-29 08:30] VITALS: BP 127/76
[2018-01-29] MEDS: QUEtiapine FUMARATE 25 MG TABLET PO SCH ×2 (09:51→16:09)
[2018-01-29] MEDS: DULoxetine HCL 60 MG CAPSULE PO SCH (09:51)
[2018-01-29] MEDS: BusPIRone HCL 10 MG TABLET PO SCH ×2 (09:51→16:08)
[2018-01-29] MEDS: GABAPENTIN 300 MG CAPSULE PO SCH ×3 (09:51→16:09)
[2018-01-29] MEDS: CHOLECALCIFEROL (VIT D3) 1,000 UNITS TABLET PO SCH ×2 (09:52→16:09)
[2018-01-29] MEDS: PANTOPRAZOLE SODIUM 40 MG DR TABLET PO SCH ×2 (09:52→16:08)
[2018-01-29 20:09] VITALS: BP 120/67
[2018-01-29] MEDS: DOCUSATE SODIUM 250 MG CAPSULE PO SCH (21:15)
[2018-01-29] MEDS: QUEtiapine FUMARATE 100 MG TABLET PO SCH (21:15)
[2018-01-30] MEDS: SUCRALFATE 1 GM TABLET PO SCH ×3 (06:41→16:19)
[2018-01-30] MEDS: CHOLECALCIFEROL (VIT D3) 1,000 UNITS TABLET PO SCH ×2 (08:08→16:19)
[2018-01-30] MEDS: DULoxetine HCL 60 MG CAPSULE PO SCH (08:08)
[2018-01-30] MEDS: PANTOPRAZOLE SODIUM 40 MG DR TABLET PO SCH ×2 (08:08→16:19)
[2018-01-30] MEDS: QUEtiapine FUMARATE 25 MG TABLET PO SCH ×2 (08:08→16:20)
[2018-01-30] MEDS: BusPIRone HCL 10 MG TABLET PO SCH ×2 (08:09→16:19)
[2018-01-30] MEDS: GABAPENTIN 300 MG CAPSULE PO SCH ×3 (08:09→16:19)
[2018-01-30] MEDS: LORazepam 1 MG TABLET PO PRN ×3 (08:11→17:54)
[2018-01-30 08:40] VITALS: BP 125/80
[2018-01-30 19:02] VITALS: BP 126/67
[2018-01-30] MEDS: ZOLPIDEM TARTRATE 5 MG TABLET PO PRN (20:51)
[2018-01-30] MEDS: DOCUSATE SODIUM 250 MG CAPSULE PO SCH (20:51)
[2018-01-30] MEDS: QUEtiapine FUMARATE 100 MG TABLET PO SCH (20:51)
[2018-01-31] MEDS: SUCRALFATE 1 GM TABLET PO SCH ×3 (06:50→16:05)
[2018-01-31 08:30] VITALS: BP 135/75
[2018-01-31] MEDS: QUEtiapine FUMARATE 25 MG TABLET PO SCH ×2 (09:13→16:48)
[2018-01-31] MEDS: DULoxetine HCL 60 MG CAPSULE PO SCH (09:13)
[2018-01-31] MEDS: PANTOPRAZOLE SODIUM 40 MG DR TABLET PO SCH ×2 (09:13→16:06)
[2018-01-31] MEDS: CHOLECALCIFEROL (VIT D3) 1,000 UNITS TABLET PO SCH ×2 (09:13→16:05)
[2018-01-31] MEDS: GABAPENTIN 300 MG CAPSULE PO SCH ×3 (09:13→16:05)
[2018-01-31] MEDS: LORazepam 1 MG TABLET PO PRN ×3 (09:14→20:31)
[2018-01-31] MEDS: BusPIRone HCL 10 MG TABLET PO SCH ×2 (09:18→16:05)
[2018-01-31 17:57] VITALS: BP 137/64
[2018-01-31] MEDS: DOCUSATE SODIUM 250 MG CAPSULE PO SCH (20:30)
[2018-01-31] MEDS: QUEtiapine FUMARATE 100 MG TABLET PO SCH (20:31)
[2018-02-01] MEDS: SUCRALFATE 1 GM TABLET PO SCH ×3 (06:56→16:41)
[2018-02-01 08:22] VITALS: BP 108/59
[2018-02-01] MEDS: DULoxetine HCL 60 MG CAPSULE PO SCH (08:36)
[2018-02-01] MEDS: CHOLECALCIFEROL (VIT D3) 1,000 UNITS TABLET PO SCH ×2 (08:36→16:43)
[2018-02-01] MEDS: BusPIRone HCL 10 MG TABLET PO SCH ×2 (08:36→16:41)
[2018-02-01] MEDS: GABAPENTIN 300 MG CAPSULE PO SCH ×3 (08:37→16:42)
[2018-02-01] MEDS: QUEtiapine FUMARATE 25 MG TABLET PO SCH ×2 (08:37→16:41)
[2018-02-01] MEDS: PANTOPRAZOLE SODIUM 40 MG DR TABLET PO SCH ×2 (08:37→16:41)
[2018-02-01 16:30] VITALS: BP 125/78
[2018-02-01] MEDS: LORazepam 1 MG TABLET PO PRN ×2 (16:41→20:59)
[2018-02-01] MEDS: QUEtiapine FUMARATE 100 MG TABLET PO SCH (20:59)
[2018-02-01] MEDS: DOCUSATE SODIUM 250 MG CAPSULE PO SCH (20:59)
[2018-02-02] MEDS: SUCRALFATE 1 GM TABLET PO SCH ×3 (06:58→16:03)
[2018-02-02 08:05] VITALS: BP 119/71
[2018-02-02] MEDS: CHOLECALCIFEROL (VIT D3) 1,000 UNITS TABLET PO SCH ×2 (09:02→16:03)
[2018-02-02] MEDS: BusPIRone HCL 10 MG TABLET PO SCH ×2 (09:03→16:03)
[2018-02-02] MEDS: GABAPENTIN 300 MG CAPSULE PO SCH ×3 (09:03→16:03)
[2018-02-02] MEDS: QUEtiapine FUMARATE 25 MG TABLET PO SCH ×2 (09:03→16:03)
[2018-02-02] MEDS: DULoxetine HCL 60 MG CAPSULE PO SCH (09:03)
[2018-02-02] MEDS: PANTOPRAZOLE SODIUM 40 MG DR TABLET PO SCH ×2 (09:03→16:03)
[2018-02-02] MEDS: LORazepam 1 MG TABLET PO PRN ×3 (09:04→20:45)
[2018-02-02 16:40] VITALS: BP 120/76
[2018-02-02] MEDS: DOCUSATE SODIUM 250 MG CAPSULE PO SCH (20:44)
[2018-02-02] MEDS: QUEtiapine FUMARATE 100 MG TABLET PO SCH (20:45)
[2018-02-03] MEDS: SUCRALFATE 1 GM TABLET PO SCH ×3 (06:53→16:56)
[2018-02-03] MEDS: GABAPENTIN 300 MG CAPSULE PO SCH ×3 (08:19→16:56)
[2018-02-03] MEDS: DULoxetine HCL 60 MG CAPSULE PO SCH (08:19)
[2018-02-03] MEDS: PANTOPRAZOLE SODIUM 40 MG DR TABLET PO SCH ×2 (08:20→16:56)
[2018-02-03] MEDS: BusPIRone HCL 10 MG TABLET PO SCH ×2 (08:20→16:56)
[2018-02-03] MEDS: CHOLECALCIFEROL (VIT D3) 1,000 UNITS TABLET PO SCH ×2 (08:20→16:56)
[2018-02-03] MEDS: QUEtiapine FUMARATE 25 MG TABLET PO SCH ×2 (08:20→16:56)
[2018-02-03] MEDS: LORazepam 1 MG TABLET PO PRN ×2 (08:21→16:57)
[2018-02-03 10:20] VITALS: BP 148/77
[2018-02-03 18:13] VITALS: BP 107/73
[2018-02-03] MEDS: DOCUSATE SODIUM 250 MG CAPSULE PO SCH (20:53)
[2018-02-03] MEDS: QUEtiapine FUMARATE 100 MG TABLET PO SCH (20:53)
[2018-02-03] MEDS: ZOLPIDEM TARTRATE 5 MG TABLET PO PRN (20:59)
[2018-02-04] MEDS: SUCRALFATE 1 GM TABLET PO SCH ×3 (06:48→16:06)
[2018-02-04 08:22] VITALS: BP 127/81
[2018-02-04] MEDS: GABAPENTIN 300 MG CAPSULE PO SCH ×3 (08:53→16:07)
[2018-02-04] MEDS: DULoxetine HCL 60 MG CAPSULE PO SCH (08:53)
[2018-02-04] MEDS: PANTOPRAZOLE SODIUM 40 MG DR TABLET PO SCH ×2 (08:53→16:07)
[2018-02-04] MEDS: CHOLECALCIFEROL (VIT D3) 1,000 UNITS TABLET PO SCH ×2 (08:54→16:06)
[2018-02-04] MEDS: QUEtiapine FUMARATE 25 MG TABLET PO SCH ×2 (08:54→16:06)
[2018-02-04] MEDS: BusPIRone HCL 10 MG TABLET PO SCH ×2 (08:54→16:05)
[2018-02-04] MEDS: LORazepam 1 MG TABLET PO PRN ×3 (08:56→20:24)
[2018-02-04 20:21] VITALS: BP 133/83
[2018-02-04] MEDS: DOCUSATE SODIUM 250 MG CAPSULE PO SCH (20:22)
[2018-02-04] MEDS: QUEtiapine FUMARATE 100 MG TABLET PO SCH (20:24)
[2018-02-05] MEDS: SUCRALFATE 1 GM TABLET PO SCH ×3 (06:06→16:01)
[2018-02-05] MEDS: PANTOPRAZOLE SODIUM 40 MG DR TABLET PO SCH ×2 (07:49→16:02)
[2018-02-05] MEDS: CHOLECALCIFEROL (VIT D3) 1,000 UNITS TABLET PO SCH ×2 (07:49→16:02)
[2018-02-05] MEDS: DULoxetine HCL 60 MG CAPSULE PO SCH (07:49)
[2018-02-05] MEDS: QUEtiapine FUMARATE 25 MG TABLET PO SCH ×2 (07:49→16:02)
[2018-02-05] MEDS: GABAPENTIN 300 MG CAPSULE PO SCH ×3 (07:49→16:02)
[2018-02-05] MEDS: BusPIRone HCL 10 MG TABLET PO SCH ×2 (07:50→16:01)
[2018-02-05] MEDS: LORazepam 1 MG TABLET PO PRN ×2 (07:51→17:30)
[2018-02-05 08:30] VITALS: BP 129/75
[2018-02-05 16:30] VITALS: BP 130/77
[2018-02-05] MEDS: QUEtiapine FUMARATE 100 MG TABLET PO SCH (20:34)
[2018-02-05] MEDS: ZOLPIDEM TARTRATE 5 MG TABLET PO PRN (20:35)
[2018-02-05] MEDS: DOCUSATE SODIUM 250 MG CAPSULE PO SCH (20:35)
[2018-02-06] MEDS: SUCRALFATE 1 GM TABLET PO SCH ×3 (07:00→16:05)
[2018-02-06 08:33] VITALS: BP 131/69
[2018-02-06] MEDS: CHOLECALCIFEROL (VIT D3) 1,000 UNITS TABLET PO SCH ×2 (08:53→16:05)
[2018-02-06] MEDS: QUEtiapine FUMARATE 25 MG TABLET PO SCH ×2 (08:53→16:05)
[2018-02-06] MEDS: GABAPENTIN 300 MG CAPSULE PO SCH ×3 (08:53→16:06)
[2018-02-06] MEDS: PANTOPRAZOLE SODIUM 40 MG DR TABLET PO SCH ×2 (08:53→16:05)
[2018-02-06] MEDS: DULoxetine HCL 60 MG CAPSULE PO SCH (08:54)
[2018-02-06] MEDS: BusPIRone HCL 10 MG TABLET PO SCH ×2 (08:54→16:05)
[2018-02-06] MEDS: LORazepam 1 MG TABLET PO PRN ×2 (08:55→17:15)
[2018-02-06 17:55] VITALS: BP 129/69
[2018-02-06] MEDS: DOCUSATE SODIUM 250 MG CAPSULE PO SCH (21:19)
[2018-02-06] MEDS: QUEtiapine FUMARATE 100 MG TABLET PO SCH (21:20)
[2018-02-06] MEDS: ZOLPIDEM TARTRATE 5 MG TABLET PO PRN (21:20)
[2018-02-07] MEDS: SUCRALFATE 1 GM TABLET PO SCH ×3 (07:00→16:25)
[2018-02-07] MEDS: CHOLECALCIFEROL (VIT D3) 1,000 UNITS TABLET PO SCH ×2 (09:00→16:25)
[2018-02-07] MEDS: GABAPENTIN 300 MG CAPSULE PO SCH ×3 (09:00→16:26)
[2018-02-07] MEDS: QUEtiapine FUMARATE 25 MG TABLET PO SCH ×2 (09:00→16:25)
[2018-02-07] MEDS: PANTOPRAZOLE SODIUM 40 MG DR TABLET PO SCH ×2 (09:00→16:25)
[2018-02-07] MEDS: BusPIRone HCL 10 MG TABLET PO SCH ×2 (09:01→16:25)
[2018-02-07] MEDS: LORazepam 1 MG TABLET PO PRN ×2 (09:03→20:53)
[2018-02-07] MEDS: DULoxetine HCL 60 MG CAPSULE PO SCH (09:04)
[2018-02-07 09:29] VITALS: BP 141/90
[2018-02-07 16:47] VITALS: BP 114/78
[2018-02-07] MEDS: QUEtiapine FUMARATE 100 MG TABLET PO SCH (20:52)
[2018-02-07] MEDS: DOCUSATE SODIUM 250 MG CAPSULE PO SCH (20:52)
[2018-02-07] MEDS: ZOLPIDEM TARTRATE 5 MG TABLET PO PRN (20:53)
[2018-02-08] MEDS: SUCRALFATE 1 GM TABLET PO SCH ×3 (06:52→16:27)
[2018-02-08 08:05] VITALS: BP 105/73
[2018-02-08] MEDS: CHOLECALCIFEROL (VIT D3) 1,000 UNITS TABLET PO SCH ×2 (08:45→16:28)
[2018-02-08] MEDS: GABAPENTIN 300 MG CAPSULE PO SCH ×3 (08:45→16:27)
[2018-02-08] MEDS: DULoxetine HCL 60 MG CAPSULE PO SCH (08:46)
[2018-02-08] MEDS: PANTOPRAZOLE SODIUM 40 MG DR TABLET PO SCH ×2 (08:46→16:27)
[2018-02-08] MEDS: BusPIRone HCL 10 MG TABLET PO SCH ×2 (08:46→16:28)
[2018-02-08] MEDS: QUEtiapine FUMARATE 100 MG TABLET PO SCH ×3 (08:46→21:18)
[2018-02-08] MEDS: LORazepam 1 MG TABLET PO PRN ×2 (08:48→21:19)
[2018-02-08 19:25] VITALS: BP 107/63
[2018-02-08] MEDS: DOCUSATE SODIUM 250 MG CAPSULE PO SCH (21:18)
[2018-02-08] MEDS: ZOLPIDEM TARTRATE 5 MG TABLET PO PRN (21:18)
[2018-02-09] MEDS: SUCRALFATE 1 GM TABLET PO SCH ×3 (06:54→16:13)
[2018-02-09] MEDS: CHOLECALCIFEROL (VIT D3) 1,000 UNITS TABLET PO SCH ×2 (08:09→16:14)
[2018-02-09] MEDS: DULoxetine HCL 60 MG CAPSULE PO SCH (08:09)
[2018-02-09] MEDS: QUEtiapine FUMARATE 100 MG TABLET PO SCH ×3 (08:09→20:18)
[2018-02-09] MEDS: GABAPENTIN 300 MG CAPSULE PO SCH ×3 (08:09→16:13)
[2018-02-09] MEDS: BusPIRone HCL 10 MG TABLET PO SCH ×2 (08:09→16:13)
[2018-02-09] MEDS: PANTOPRAZOLE SODIUM 40 MG DR TABLET PO SCH ×2 (08:09→16:14)
[2018-02-09] MEDS: LORazepam 1 MG TABLET PO PRN ×3 (08:12→20:09)
[2018-02-09 09:02] VITALS: BP 108/71
[2018-02-09] MEDS: DOCUSATE SODIUM 250 MG CAPSULE PO SCH (20:09)
[2018-02-09] MEDS: TraZODone HCL 100 MG TABLET PO SCH (20:33)
[2018-02-09 22:18] VITALS: BP 110/70
[2018-02-10] MEDS: SUCRALFATE 1 GM TABLET PO SCH ×3 (06:46→16:17)
[2018-02-10] MEDS: DULoxetine HCL 60 MG CAPSULE PO SCH (08:12)
[2018-02-10] MEDS: CHOLECALCIFEROL (VIT D3) 1,000 UNITS TABLET PO SCH ×2 (08:13→16:16)
[2018-02-10] MEDS: PANTOPRAZOLE SODIUM 40 MG DR TABLET PO SCH ×2 (08:13→16:16)
[2018-02-10] MEDS: TraZODone HCL 50 MG TABLET PO SCH ×3 (08:13→16:19)
[2018-02-10] MEDS: QUEtiapine FUMARATE 100 MG TABLET PO SCH ×3 (08:13→21:10)
[2018-02-10] MEDS: GABAPENTIN 300 MG CAPSULE PO SCH ×3 (08:13→16:17)
[2018-02-10] MEDS: BusPIRone HCL 10 MG TABLET PO SCH ×2 (08:14→16:17)
[2018-02-10] MEDS: LORazepam 1 MG TABLET PO PRN ×4 (08:16→22:00)
[2018-02-10 09:29] VITALS: BP 112/68
[2018-02-10 16:56] VITALS: BP 113/72
[2018-02-10] MEDS: TraZODone HCL 100 MG TABLET PO SCH (21:10)
[2018-02-10] MEDS: DOCUSATE SODIUM 250 MG CAPSULE PO SCH (21:10)
[2018-02-10] MEDS: ZOLPIDEM TARTRATE 5 MG TABLET PO PRN (21:12)
[2018-02-11] MEDS: SUCRALFATE 1 GM TABLET PO SCH ×3 (06:36→16:08)
[2018-02-11 08:22] VITALS: BP 102/71
[2018-02-11] MEDS: DULoxetine HCL 60 MG CAPSULE PO SCH (08:22)
[2018-02-11] MEDS: BusPIRone HCL 10 MG TABLET PO SCH ×2 (08:22→16:08)
[2018-02-11] MEDS: GABAPENTIN 300 MG CAPSULE PO SCH ×3 (08:23→16:08)
[2018-02-11] MEDS: PANTOPRAZOLE SODIUM 40 MG DR TABLET PO SCH ×2 (08:23→16:08)
[2018-02-11] MEDS: QUEtiapine FUMARATE 100 MG TABLET PO SCH ×3 (08:23→20:43)
[2018-02-11] MEDS: TraZODone HCL 50 MG TABLET PO SCH ×3 (08:23→16:08)
[2018-02-11] MEDS: CHOLECALCIFEROL (VIT D3) 1,000 UNITS TABLET PO SCH ×2 (08:23→16:08)
[2018-02-11 16:52] VITALS: BP 101/58
[2018-02-11] MEDS: TraZODone HCL 100 MG TABLET PO SCH (20:43)
[2018-02-11] MEDS: DOCUSATE SODIUM 250 MG CAPSULE PO SCH (20:43)
[2018-02-12] MEDS: SUCRALFATE 1 GM TABLET PO SCH ×3 (06:19→16:59)
[2018-02-12] MEDS: LORazepam 1 MG TABLET PO PRN ×2 (08:51→16:12)
[2018-02-12] MEDS: DULoxetine HCL 60 MG CAPSULE PO SCH (08:51)
[2018-02-12] MEDS: PANTOPRAZOLE SODIUM 40 MG DR TABLET PO SCH ×2 (08:52→18:00)
[2018-02-12] MEDS: BusPIRone HCL 10 MG TABLET PO SCH ×2 (08:52→18:00)
[2018-02-12] MEDS: QUEtiapine FUMARATE 100 MG TABLET PO SCH ×3 (08:52→21:37)
[2018-02-12] MEDS: GABAPENTIN 300 MG CAPSULE PO SCH ×3 (08:52→18:00)
[2018-02-12] MEDS: TraZODone HCL 50 MG TABLET PO SCH ×3 (08:52→18:00)
[2018-02-12] MEDS: NYSTATIN 500,000 UNITS/5 ML SUSPENSION UDCUP PO SCH ×3 (08:53→18:00)
[2018-02-12] MEDS: CHOLECALCIFEROL (VIT D3) 1,000 UNITS TABLET PO SCH ×2 (08:54→18:00)
[2018-02-12 09:46] VITALS: BP 119/66
[2018-02-12 16:36] VITALS: BP 111/67
[2018-02-12] MEDS: TraZODone HCL 100 MG TABLET PO SCH (21:36)
[2018-02-12] MEDS: DOCUSATE SODIUM 250 MG CAPSULE PO SCH (21:36)
[2018-02-12] MEDS: ZOLPIDEM TARTRATE 5 MG TABLET PO PRN (21:37)
[2018-02-13] MEDS: SUCRALFATE 1 GM TABLET PO SCH ×3 (06:57→16:18)
[2018-02-13] MEDS: TraZODone HCL 50 MG TABLET PO SCH ×3 (08:34→16:18)
[2018-02-13] MEDS: QUEtiapine FUMARATE 100 MG TABLET PO SCH ×3 (08:34→20:39)
[2018-02-13] MEDS: PANTOPRAZOLE SODIUM 40 MG DR TABLET PO SCH ×2 (08:34→16:20)
[2018-02-13] MEDS: CHOLECALCIFEROL (VIT D3) 1,000 UNITS TABLET PO SCH ×2 (08:34→16:18)
[2018-02-13] MEDS: GABAPENTIN 300 MG CAPSULE PO SCH ×3 (08:34→16:18)
[2018-02-13] MEDS: DULoxetine HCL 60 MG CAPSULE PO SCH (08:35)
[2018-02-13] MEDS: BusPIRone HCL 10 MG TABLET PO SCH ×2 (08:35→16:19)
[2018-02-13] MEDS: LORazepam 1 MG TABLET PO PRN ×2 (08:37→17:58)
[2018-02-13] MEDS: NYSTATIN 500,000 UNITS/5 ML SUSPENSION UDCUP PO SCH ×3 (09:00→17:00)
[2018-02-13 10:07] VITALS: BP 117/62
[2018-02-13 16:41] VITALS: BP 120/69
[2018-02-13] MEDS: TraZODone HCL 100 MG TABLET PO SCH (20:40)
[2018-02-13] MEDS: DOCUSATE SODIUM 250 MG CAPSULE PO SCH (20:40)
[2018-02-13] MEDS: ZOLPIDEM TARTRATE 5 MG TABLET PO PRN (21:43)
[2018-02-14] MEDS: SUCRALFATE 1 GM TABLET PO SCH ×3 (06:41→16:10)
[2018-02-14] MEDS: DULoxetine HCL 60 MG CAPSULE PO SCH (08:49)
[2018-02-14] MEDS: CHOLECALCIFEROL (VIT D3) 1,000 UNITS TABLET PO SCH ×2 (08:49→16:10)
[2018-02-14] MEDS: GABAPENTIN 300 MG CAPSULE PO SCH ×3 (08:49→16:11)
[2018-02-14] MEDS: NYSTATIN 500,000 UNITS/5 ML SUSPENSION UDCUP PO SCH ×3 (08:50→17:00)
[2018-02-14] MEDS: TraZODone HCL 50 MG TABLET PO SCH ×3 (08:50→16:11)
[2018-02-14] MEDS: PANTOPRAZOLE SODIUM 40 MG DR TABLET PO SCH ×2 (08:50→16:11)
[2018-02-14] MEDS: BusPIRone HCL 10 MG TABLET PO SCH ×2 (08:50→16:11)
[2018-02-14] MEDS: QUEtiapine FUMARATE 100 MG TABLET PO SCH ×3 (08:51→21:15)
[2018-02-14] MEDS: LORazepam 1 MG TABLET PO PRN ×2 (08:52→21:16)
[2018-02-14 09:57] VITALS: BP 109/63
[2018-02-14 16:30] VITALS: BP 120/67
[2018-02-14] MEDS: ZOLPIDEM TARTRATE 5 MG TABLET PO PRN (21:15)
[2018-02-14] MEDS: DOCUSATE SODIUM 250 MG CAPSULE PO SCH (21:15)
[2018-02-14] MEDS: TraZODone HCL 100 MG TABLET PO SCH (21:17)
[2018-02-15] MEDS: SUCRALFATE 1 GM TABLET PO SCH ×3 (06:51→16:09)
[2018-02-15] MEDS: DULoxetine HCL 60 MG CAPSULE PO SCH (08:30)
[2018-02-15] MEDS: QUEtiapine FUMARATE 100 MG TABLET PO SCH ×3 (08:30→20:25)
[2018-02-15] MEDS: TraZODone HCL 50 MG TABLET PO SCH ×3 (08:30→16:09)
[2018-02-15] MEDS: CHOLECALCIFEROL (VIT D3) 1,000 UNITS TABLET PO SCH ×2 (08:30→16:09)
[2018-02-15] MEDS: PANTOPRAZOLE SODIUM 40 MG DR TABLET PO SCH ×2 (08:30→16:09)
[2018-02-15] MEDS: GABAPENTIN 300 MG CAPSULE PO SCH ×3 (08:30→16:09)
[2018-02-15] MEDS: BusPIRone HCL 10 MG TABLET PO SCH ×2 (08:30→16:09)
[2018-02-15] MEDS: NYSTATIN 500,000 UNITS/5 ML SUSPENSION UDCUP PO SCH ×3 (08:31→16:10)
[2018-02-15 08:51] VITALS: BP 110/60
[2018-02-15 16:30] VITALS: BP 105/61
[2018-02-15] MEDS: TraZODone HCL 100 MG TABLET PO SCH (20:24)
[2018-02-15] MEDS: DOCUSATE SODIUM 250 MG CAPSULE PO SCH (20:25)
[2018-02-15] MEDS: ZOLPIDEM TARTRATE 5 MG TABLET PO PRN (20:52)
[2018-02-16] MEDS: SUCRALFATE 1 GM TABLET PO SCH ×3 (06:47→16:05)
[2018-02-16] MEDS: CHOLECALCIFEROL (VIT D3) 1,000 UNITS TABLET PO SCH ×2 (08:22→16:05)
[2018-02-16] MEDS: GABAPENTIN 300 MG CAPSULE PO SCH ×3 (08:22→16:05)
[2018-02-16] MEDS: DULoxetine HCL 60 MG CAPSULE PO SCH (08:22)
[2018-02-16] MEDS: TraZODone HCL 50 MG TABLET PO SCH ×3 (08:22→16:05)
[2018-02-16] MEDS: LORazepam 1 MG TABLET PO PRN ×2 (08:23→22:54)
[2018-02-16] MEDS: NYSTATIN 500,000 UNITS/5 ML SUSPENSION UDCUP PO SCH ×3 (08:24→16:05)
[2018-02-16] MEDS: BusPIRone HCL 10 MG TABLET PO SCH ×2 (08:24→16:05)
[2018-02-16] MEDS: PANTOPRAZOLE SODIUM 40 MG DR TABLET PO SCH ×2 (08:24→16:05)
[2018-02-16] MEDS: QUEtiapine FUMARATE 100 MG TABLET PO SCH ×3 (08:25→20:33)
[2018-02-16 08:27] VITALS: BP 116/72
[2018-02-16 17:06] VITALS: BP 125/78
[2018-02-16] MEDS: TraZODone HCL 100 MG TABLET PO SCH (20:33)
[2018-02-16] MEDS: DOCUSATE SODIUM 250 MG CAPSULE PO SCH (20:34)
[2018-02-16] MEDS: ZOLPIDEM TARTRATE 5 MG TABLET PO PRN (22:54)
[2018-02-17] MEDS: SUCRALFATE 1 GM TABLET PO SCH ×3 (07:05→16:05)
[2018-02-17 08:16] VITALS: BP 126/89
[2018-02-17] MEDS: GABAPENTIN 300 MG CAPSULE PO SCH ×3 (08:42→16:05)
[2018-02-17] MEDS: PANTOPRAZOLE SODIUM 40 MG DR TABLET PO SCH ×2 (08:42→16:06)
[2018-02-17] MEDS: NYSTATIN 500,000 UNITS/5 ML SUSPENSION UDCUP PO SCH ×3 (08:42→17:19)
[2018-02-17] MEDS: TraZODone HCL 50 MG TABLET PO SCH ×3 (08:42→17:19)
[2018-02-17] MEDS: DULoxetine HCL 60 MG CAPSULE PO SCH (08:42)
[2018-02-17] MEDS: CHOLECALCIFEROL (VIT D3) 1,000 UNITS TABLET PO SCH ×2 (08:42→16:07)
[2018-02-17] MEDS: QUEtiapine FUMARATE 100 MG TABLET PO SCH ×3 (08:42→21:07)
[2018-02-17] MEDS: BusPIRone HCL 10 MG TABLET PO SCH ×2 (08:43→16:05)
[2018-02-17] MEDS: LORazepam 1 MG TABLET PO PRN ×2 (16:08→21:56)
[2018-02-17 17:39] VITALS: BP 93/61
[2018-02-17] MEDS: DOCUSATE SODIUM 250 MG CAPSULE PO SCH (21:07)
[2018-02-17] MEDS: TraZODone HCL 100 MG TABLET PO SCH (21:08)
[2018-02-18] MEDS: SUCRALFATE 1 GM TABLET PO SCH ×3 (06:40→16:18)
[2018-02-18 08:05] VITALS: BP 104/64
[2018-02-18] MEDS: BusPIRone HCL 10 MG TABLET PO SCH ×2 (09:04→16:18)
[2018-02-18] MEDS: DULoxetine HCL 60 MG CAPSULE PO SCH (09:05)
[2018-02-18] MEDS: PANTOPRAZOLE SODIUM 40 MG DR TABLET PO SCH ×2 (09:05→16:18)
[2018-02-18] MEDS: GABAPENTIN 300 MG CAPSULE PO SCH ×3 (09:05→16:17)
[2018-02-18] MEDS: TraZODone HCL 50 MG TABLET PO SCH ×3 (09:05→16:17)
[2018-02-18] MEDS: QUEtiapine FUMARATE 100 MG TABLET PO SCH ×3 (09:05→21:19)
[2018-02-18] MEDS: CHOLECALCIFEROL (VIT D3) 1,000 UNITS TABLET PO SCH ×2 (09:06→16:17)
[2018-02-18] MEDS: LORazepam 1 MG TABLET PO PRN ×2 (09:08→21:18)
[2018-02-18] MEDS: NYSTATIN 500,000 UNITS/5 ML SUSPENSION UDCUP PO SCH ×3 (09:11→16:17)
[2018-02-18 16:59] VITALS: BP 104/71
[2018-02-18] MEDS: TraZODone HCL 100 MG TABLET PO SCH (21:19)
[2018-02-18] MEDS: DOCUSATE SODIUM 250 MG CAPSULE PO SCH (21:19)
[2018-02-18] MEDS: ZOLPIDEM TARTRATE 5 MG TABLET PO PRN (23:10)
[2018-02-19] MEDS: SUCRALFATE 1 GM TABLET PO SCH ×3 (06:11→16:58)
[2018-02-19] MEDS: PANTOPRAZOLE SODIUM 40 MG DR TABLET PO SCH ×2 (08:11→16:58)
[2018-02-19] MEDS: QUEtiapine FUMARATE 100 MG TABLET PO SCH ×3 (08:11→20:38)
[2018-02-19] MEDS: GABAPENTIN 300 MG CAPSULE PO SCH ×3 (08:11→16:58)
[2018-02-19] MEDS: DULoxetine HCL 60 MG CAPSULE PO SCH (08:11)
[2018-02-19] MEDS: TraZODone HCL 50 MG TABLET PO SCH (08:11)
[2018-02-19] MEDS: CHOLECALCIFEROL (VIT D3) 1,000 UNITS TABLET PO SCH ×2 (08:11→16:58)
[2018-02-19] MEDS: BusPIRone HCL 10 MG TABLET PO SCH ×2 (08:12→16:58)
[2018-02-19 08:35] VITALS: BP 102/70
[2018-02-19] MEDS: LORazepam 1 MG TABLET PO PRN ×2 (08:58→17:01)
[2018-02-19] MEDS ORDERED: TraZODone HCL 100 MG TABLET PO ONE (12:30)
[2018-02-19 17:30] VITALS: BP 117/71
[2018-02-19] MEDS: DOCUSATE SODIUM 250 MG CAPSULE PO SCH (20:36)
[2018-02-19] MEDS: TraZODone HCL 100 MG TABLET PO SCH (20:38)
[2018-02-19] MEDS: ZOLPIDEM TARTRATE 5 MG TABLET PO PRN (20:41)
[2018-02-20] MEDS: SUCRALFATE 1 GM TABLET PO SCH ×3 (06:42→16:09)
[2018-02-20] MEDS: CHOLECALCIFEROL (VIT D3) 1,000 UNITS TABLET PO SCH ×2 (07:58→16:08)
[2018-02-20] MEDS: PANTOPRAZOLE SODIUM 40 MG DR TABLET PO SCH ×2 (07:58→16:09)
[2018-02-20] MEDS: DULoxetine HCL 60 MG CAPSULE PO SCH (07:58)
[2018-02-20] MEDS: GABAPENTIN 300 MG CAPSULE PO SCH ×3 (07:58→16:08)
[2018-02-20] MEDS: BusPIRone HCL 10 MG TABLET PO SCH ×2 (07:59→16:09)
[2018-02-20] MEDS: QUEtiapine FUMARATE 100 MG TABLET PO SCH ×3 (07:59→20:12)
[2018-02-20 08:17] VITALS: BP 124/77
[2018-02-20] MEDS: LORazepam 1 MG TABLET PO PRN ×2 (16:09→20:11)
[2018-02-20 18:03] VITALS: BP 111/70
[2018-02-20] MEDS: TraZODone HCL 100 MG TABLET PO SCH (20:12)
[2018-02-20] MEDS: DOCUSATE SODIUM 250 MG CAPSULE PO SCH (20:12)
[2018-02-21] MEDS: SUCRALFATE 1 GM TABLET PO SCH ×3 (06:53→16:11)
[2018-02-21] MEDS: QUEtiapine FUMARATE 100 MG TABLET PO SCH ×3 (09:03→21:13)
[2018-02-21] MEDS: BusPIRone HCL 10 MG TABLET PO SCH ×2 (09:03→16:10)
[2018-02-21] MEDS: DULoxetine HCL 60 MG CAPSULE PO SCH (09:03)
[2018-02-21] MEDS: GABAPENTIN 300 MG CAPSULE PO SCH ×3 (09:03→16:11)
[2018-02-21] MEDS: PANTOPRAZOLE SODIUM 40 MG DR TABLET PO SCH ×2 (09:03→16:10)
[2018-02-21] MEDS: CHOLECALCIFEROL (VIT D3) 1,000 UNITS TABLET PO SCH ×2 (09:03→16:10)
[2018-02-21] MEDS: LORazepam 1 MG TABLET PO PRN ×3 (09:05→21:14)
[2018-02-21 09:25] VITALS: BP 134/74
[2018-02-21 17:51] VITALS: BP 105/66
[2018-02-21] MEDS: DOCUSATE SODIUM 250 MG CAPSULE PO SCH (21:09)
[2018-02-21] MEDS: TraZODone HCL 100 MG TABLET PO SCH (21:09)
[2018-02-22] MEDS: SUCRALFATE 1 GM TABLET PO SCH ×3 (06:26→16:06)
[2018-02-22 08:03] VITALS: BP 114/84
[2018-02-22] MEDS: PANTOPRAZOLE SODIUM 40 MG DR TABLET PO SCH ×2 (08:16→16:06)
[2018-02-22] MEDS: BusPIRone HCL 10 MG TABLET PO SCH ×2 (08:16→16:06)
[2018-02-22] MEDS: DULoxetine HCL 60 MG CAPSULE PO SCH (08:16)
[2018-02-22] MEDS: QUEtiapine FUMARATE 100 MG TABLET PO SCH ×3 (08:17→20:15)
[2018-02-22] MEDS: GABAPENTIN 300 MG CAPSULE PO SCH ×3 (08:17→16:06)
[2018-02-22] MEDS: CHOLECALCIFEROL (VIT D3) 1,000 UNITS TABLET PO SCH ×2 (08:17→16:06)
[2018-02-22] MEDS: LORazepam 1 MG TABLET PO PRN ×3 (08:19→20:18)
[2018-02-22 16:30] VITALS: BP 116/72
[2018-02-22] MEDS: TraZODone HCL 100 MG TABLET PO SCH (20:15)
[2018-02-22] MEDS: DOCUSATE SODIUM 250 MG CAPSULE PO SCH (20:16)
[2018-02-23] MEDS: SUCRALFATE 1 GM TABLET PO SCH ×3 (07:00→16:24)
[2018-02-23] MEDS: CHOLECALCIFEROL (VIT D3) 1,000 UNITS TABLET PO SCH ×2 (08:32→16:24)
[2018-02-23] MEDS: QUEtiapine FUMARATE 100 MG TABLET PO SCH ×3 (08:32→20:29)
[2018-02-23] MEDS: GABAPENTIN 300 MG CAPSULE PO SCH ×3 (08:33→16:24)
[2018-02-23] MEDS: PANTOPRAZOLE SODIUM 40 MG DR TABLET PO SCH ×2 (08:33→16:24)
[2018-02-23] MEDS: DULoxetine HCL 60 MG CAPSULE PO SCH (08:33)
[2018-02-23] MEDS: BusPIRone HCL 10 MG TABLET PO SCH ×2 (08:33→16:24)
[2018-02-23] MEDS: LORazepam 1 MG TABLET PO PRN ×3 (08:34→20:29)
[2018-02-23 09:42] VITALS: BP 146/86
[2018-02-23 16:52] VITALS: BP 135/82
[2018-02-23] MEDS: TraZODone HCL 100 MG TABLET PO SCH (20:28)
[2018-02-23] MEDS: DOCUSATE SODIUM 250 MG CAPSULE PO SCH (20:29)
[2018-02-24] MEDS: SUCRALFATE 1 GM TABLET PO SCH ×3 (06:59→16:19)
[2018-02-24] MEDS: LORazepam 1 MG TABLET PO PRN ×3 (08:57→20:31)
[2018-02-24] MEDS: DULoxetine HCL 60 MG CAPSULE PO SCH (08:57)
[2018-02-24] MEDS: PANTOPRAZOLE SODIUM 40 MG DR TABLET PO SCH ×2 (08:57→16:19)
[2018-02-24] MEDS: CHOLECALCIFEROL (VIT D3) 1,000 UNITS TABLET PO SCH ×2 (08:57→16:19)
[2018-02-24] MEDS: GABAPENTIN 300 MG CAPSULE PO SCH ×3 (08:57→16:19)
[2018-02-24] MEDS: BusPIRone HCL 10 MG TABLET PO SCH ×2 (08:58→16:18)
[2018-02-24] MEDS: QUEtiapine FUMARATE 100 MG TABLET PO SCH ×3 (08:58→20:33)
[2018-02-24 09:28] VITALS: BP 116/74
[2018-02-24 18:42] VITALS: BP 118/75
[2018-02-24] MEDS: TraZODone HCL 100 MG TABLET PO SCH (20:31)
[2018-02-24] MEDS: DOCUSATE SODIUM 250 MG CAPSULE PO SCH (20:31)
[2018-02-25] MEDS: SUCRALFATE 1 GM TABLET PO SCH ×3 (06:56→16:19)
[2018-02-25] MEDS: BusPIRone HCL 10 MG TABLET PO SCH ×2 (08:26→16:19)
[2018-02-25] MEDS: PANTOPRAZOLE SODIUM 40 MG DR TABLET PO SCH ×2 (08:26→16:19)
[2018-02-25] MEDS: DULoxetine HCL 60 MG CAPSULE PO SCH (08:26)
[2018-02-25] MEDS: CHOLECALCIFEROL (VIT D3) 1,000 UNITS TABLET PO SCH ×2 (08:26→16:19)
[2018-02-25] MEDS: LORazepam 1 MG TABLET PO PRN ×3 (08:26→20:21)
[2018-02-25] MEDS: QUEtiapine FUMARATE 100 MG TABLET PO SCH ×3 (08:27→20:20)
[2018-02-25] MEDS: GABAPENTIN 300 MG CAPSULE PO SCH ×3 (08:27→16:19)
[2018-02-25 09:30] VITALS: BP 113/72
[2018-02-25 17:12] VITALS: BP 117/70
[2018-02-25] MEDS: DOCUSATE SODIUM 250 MG CAPSULE PO SCH (20:19)
[2018-02-25] MEDS: TraZODone HCL 100 MG TABLET PO SCH (20:20)
[2018-02-26] MEDS: SUCRALFATE 1 GM TABLET PO SCH ×3 (06:39→16:05)
[2018-02-26 08:37] VITALS: BP 115/69
[2018-02-26] MEDS: DULoxetine HCL 60 MG CAPSULE PO SCH (08:43)
[2018-02-26] MEDS: CHOLECALCIFEROL (VIT D3) 1,000 UNITS TABLET PO SCH ×2 (08:43→16:05)
[2018-02-26] MEDS: LORazepam 1 MG TABLET PO PRN ×3 (08:44→20:19)
[2018-02-26] MEDS: PANTOPRAZOLE SODIUM 40 MG DR TABLET PO SCH ×2 (08:44→16:05)
[2018-02-26] MEDS: BusPIRone HCL 10 MG TABLET PO SCH ×2 (08:44→16:05)
[2018-02-26] MEDS: GABAPENTIN 300 MG CAPSULE PO SCH ×3 (08:44→16:04)
[2018-02-26] MEDS: QUEtiapine FUMARATE 100 MG TABLET PO SCH ×3 (08:46→20:19)
[2018-02-26 16:54] VITALS: BP 114/60
[2018-02-26] MEDS: DOCUSATE SODIUM 250 MG CAPSULE PO SCH (20:18)
[2018-02-26] MEDS: TraZODone HCL 100 MG TABLET PO SCH (20:18)
[2018-02-27] MEDS: SUCRALFATE 1 GM TABLET PO SCH ×3 (06:23→16:29)
[2018-02-27] MEDS: PANTOPRAZOLE SODIUM 40 MG DR TABLET PO SCH ×2 (08:46→16:29)
[2018-02-27] MEDS: GABAPENTIN 300 MG CAPSULE PO SCH ×3 (08:46→16:30)
[2018-02-27] MEDS: DULoxetine HCL 60 MG CAPSULE PO SCH (08:46)
[2018-02-27] MEDS: BusPIRone HCL 10 MG TABLET PO SCH ×2 (08:46→16:30)
[2018-02-27] MEDS: CHOLECALCIFEROL (VIT D3) 1,000 UNITS TABLET PO SCH ×2 (08:46→16:29)
[2018-02-27] MEDS: QUEtiapine FUMARATE 100 MG TABLET PO SCH ×3 (08:46→20:10)
[2018-02-27] MEDS: LORazepam 1 MG TABLET PO PRN ×3 (08:48→20:09)
[2018-02-27 10:56] VITALS: BP 145/74
[2018-02-27 16:37] VITALS: BP 124/87
[2018-02-27] MEDS: DOCUSATE SODIUM 250 MG CAPSULE PO SCH (20:09)
[2018-02-27] MEDS: TraZODone HCL 100 MG TABLET PO SCH (20:10)
[2018-02-28 06:17] VITALS: BP 143/82
[2018-02-28] MEDS: SUCRALFATE 1 GM TABLET PO SCH ×3 (06:22→16:15)
[2018-02-28 08:11] VITALS: BP 153/84
[2018-02-28] MEDS: DULoxetine HCL 60 MG CAPSULE PO SCH (08:45)
[2018-02-28] MEDS: CHOLECALCIFEROL (VIT D3) 1,000 UNITS TABLET PO SCH ×2 (08:45→16:15)
[2018-02-28] MEDS: BusPIRone HCL 10 MG TABLET PO SCH ×2 (08:45→16:15)
[2018-02-28] MEDS: GABAPENTIN 300 MG CAPSULE PO SCH ×3 (08:45→16:16)
[2018-02-28] MEDS: PANTOPRAZOLE SODIUM 40 MG DR TABLET PO SCH ×2 (08:45→16:16)
[2018-02-28] MEDS: QUEtiapine FUMARATE 100 MG TABLET PO SCH ×3 (08:46→20:20)
[2018-02-28] MEDS: LORazepam 1 MG TABLET PO PRN ×3 (08:48→20:19)
[2018-02-28] MEDS: DOCUSATE SODIUM 250 MG CAPSULE PO SCH (20:20)
[2018-02-28] MEDS: TraZODone HCL 100 MG TABLET PO SCH (20:20)
[2018-02-28 22:22] VITALS: BP 142/72
[2018-03-01] MEDS: SUCRALFATE 1 GM TABLET PO SCH ×3 (06:40→16:07)
[2018-03-01] MEDS: DULoxetine HCL 60 MG CAPSULE PO SCH (09:00)
[2018-03-01] MEDS: PANTOPRAZOLE SODIUM 40 MG DR TABLET PO SCH ×2 (09:01→16:07)
[2018-03-01] MEDS: CHOLECALCIFEROL (VIT D3) 1,000 UNITS TABLET PO SCH ×2 (09:01→16:07)
[2018-03-01] MEDS: BusPIRone HCL 10 MG TABLET PO SCH ×2 (09:01→16:07)
[2018-03-01] MEDS: GABAPENTIN 300 MG CAPSULE PO SCH ×3 (09:01→16:07)
[2018-03-01] MEDS: QUEtiapine FUMARATE 100 MG TABLET PO SCH ×3 (09:02→20:58)
[2018-03-01 09:39] VITALS: BP 124/74
[2018-03-01] MEDS: LORazepam 1 MG TABLET PO PRN ×2 (16:07→20:58)
[2018-03-01 17:11] VITALS: BP 126/73
[2018-03-01] MEDS: DOCUSATE SODIUM 250 MG CAPSULE PO SCH (20:58)
[2018-03-01] MEDS: TraZODone HCL 100 MG TABLET PO SCH (20:58)
[2018-03-02] MEDS: SUCRALFATE 1 GM TABLET PO SCH ×3 (06:54→16:28)
[2018-03-02 08:05] VITALS: BP 137/81
[2018-03-02] MEDS: BusPIRone HCL 10 MG TABLET PO SCH ×2 (08:34→16:27)
[2018-03-02] MEDS: GABAPENTIN 300 MG CAPSULE PO SCH ×3 (08:34→16:27)
[2018-03-02] MEDS: DULoxetine HCL 60 MG CAPSULE PO SCH (08:34)
[2018-03-02] MEDS: PANTOPRAZOLE SODIUM 40 MG DR TABLET PO SCH ×2 (08:34→16:28)
[2018-03-02] MEDS: CHOLECALCIFEROL (VIT D3) 1,000 UNITS TABLET PO SCH ×2 (08:34→16:27)
[2018-03-02] MEDS: QUEtiapine FUMARATE 100 MG TABLET PO SCH ×3 (08:35→20:27)
[2018-03-02] MEDS: LORazepam 1 MG TABLET PO PRN ×3 (08:36→20:53)
[2018-03-02 16:26] VITALS: BP 116/74
[2018-03-02] MEDS: TraZODone HCL 100 MG TABLET PO SCH (20:26)
[2018-03-02] MEDS: DOCUSATE SODIUM 250 MG CAPSULE PO SCH (20:26)
[2018-03-03] MEDS: SUCRALFATE 1 GM TABLET PO SCH ×3 (06:46→16:11)
[2018-03-03 07:22] LABS: BASOPHILS % (AUTO) 1.2 % (0.0-2.0); EOSINOPHILS % (AUTO) 1.5 % (1.0-6.0); HEMATOCRIT 29.3 % (36-46); HEMOGLOBIN 9.9 g/dL (12.0-16.0); LYMPHOCYTES # (AUTO) 3.2 K/uL (1.0-4.8); LYMPHOCYTES % (AUTO) 70.2 % (22.0-44.0); MEAN CORPUSCULAR HEMOGLOBIN 28.4 pg (26.0-34.0); MEAN CORPUSCULAR HGB CONC 33.7 G/dL (31.0-37.0); MEAN CORPUSCULAR VOLUME 84 fL (80-100); MONOCYTES # (AUTO) 0.3 K/uL (0.1-1.0); NEUTROPHILS # (AUTO) 0.9 K/uL (1.8-7.7); NEUTROPHILS % (AUTO) 20.1 % (40.0-70.0); PLATELET COUNT (AUTO) 483 K/uL (150-450); RED BLOOD CELL COUNT(AUTO) 3.48 MIL/uL (4.00-5.20); RED CELL DISTRIBUTION WIDTH 19.9 % (11.5-14.5)
[2018-03-03 08:14] LABS: ALANINE AMINOTRANSFERASE 36 U/L (12-78); ALBUMIN 3.1 g/dL (3.4-5.0); ALKALINE PHOSPHATASE 129 U/L (46-116); ANION GAP 9 mmol/L (8-16); ASPARTATE AMINOTRANSFERASE 27 U/L (15-37); BILIRUBIN,TOTAL 0.2 mg/dL (0.1-1.0); CALCIUM, TOTAL 8.4 mg/dL (8.8-10.5); CARBON DIOXIDE 30 mmol/L (22-29); CHLORIDE 104 mmol/L (98-107); CREATINE KINASE, TOTAL ONLY 50 U/L (26-192); CREATININE 0.91 mg/dL (0.60-1.30); GLOMERULAR FILTR. RATE CALC > 60 mL/min (>60); GLUCOSE,RANDOM 94 mg/dL (70-110); POTASSIUM 4.5 mmol/L (3.5-5.1); SODIUM SERUM 143 mmol/L (136-145); UREA NITROGEN, BLOOD 24 mg/dL (7-18)
[2018-03-03] MEDS: BusPIRone HCL 10 MG TABLET PO SCH ×2 (08:29→16:11)
[2018-03-03] MEDS: GABAPENTIN 300 MG CAPSULE PO SCH ×3 (08:29→16:10)
[2018-03-03] MEDS: PANTOPRAZOLE SODIUM 40 MG DR TABLET PO SCH ×2 (08:29→16:10)
[2018-03-03] MEDS: QUEtiapine FUMARATE 100 MG TABLET PO SCH ×3 (08:29→20:16)
[2018-03-03] MEDS: DULoxetine HCL 60 MG CAPSULE PO SCH (08:29)
[2018-03-03] MEDS: CHOLECALCIFEROL (VIT D3) 1,000 UNITS TABLET PO SCH ×2 (08:30→16:10)
[2018-03-03] MEDS: LORazepam 1 MG TABLET PO PRN ×3 (08:30→20:16)
[2018-03-03 09:42] VITALS: BP 133/75
[2018-03-03 17:10] VITALS: BP 111/71
[2018-03-03] MEDS: DOCUSATE SODIUM 250 MG CAPSULE PO SCH (20:16)
[2018-03-03] MEDS: TraZODone HCL 100 MG TABLET PO SCH (20:16)
[2018-03-04] MEDS: SUCRALFATE 1 GM TABLET PO SCH ×2 (06:21→11:43)
[2018-03-04] MEDS: DULoxetine HCL 60 MG CAPSULE PO SCH (08:56)
[2018-03-04] MEDS: PANTOPRAZOLE SODIUM 40 MG DR TABLET PO SCH (08:56)
[2018-03-04] MEDS: BusPIRone HCL 10 MG TABLET PO SCH (08:56)
[2018-03-04] MEDS: CHOLECALCIFEROL (VIT D3) 1,000 UNITS TABLET PO SCH (08:56)
[2018-03-04] MEDS: GABAPENTIN 300 MG CAPSULE PO SCH ×2 (08:57→12:51)
[2018-03-04] MEDS: QUEtiapine FUMARATE 100 MG TABLET PO SCH (08:57)
[2018-03-04] MEDS: LORazepam 1 MG TABLET PO PRN (09:00)
[2018-03-04] MEDS ORDERED: TRAZ-220 PO (12:40)
[2018-03-04] MEDS ORDERED: GABA-531 PO (12:40)
[2018-03-04] MEDS ORDERED: DULO60CA44 PO (12:40)
[2018-03-04] MEDS ORDERED: QUET100T33 PO ×2 (12:40)
[2018-03-04] MEDS ORDERED: BUSP10TA23 PO (12:40)
== END 2018-03-04 15:20 | disposition home or self-care (01) | DRG 753 ==
LOC: EMS 06:10 → 3EI 11:19
PROVIDERS: ADMIT Psychiatry & Neurology Psychiatry; ATTEND Psychiatry & Neurology Psychiatry
DX: F31.5 Bipolar disorder, current episode depressed, severe, with psychotic features (principal); B37.0 Candidal stomatitis; E88.09 Other disorders of plasma-protein metabolism, not elsewhere classified; K22.2 Esophageal obstruction; J44.9 Chronic obstructive pulmonary disease, unspecified; D64.9 Anemia, unspecified; E55.9 Vitamin D deficiency, unspecified; I10 Essential (primary) hypertension; R45.851 Suicidal ideations; M19.079 Primary osteoarthritis, unspecified ankle and foot; K58.9 Irritable bowel syndrome, unspecified; K29.70 Gastritis, unspecified, without bleeding; R79.89 Other specified abnormal findings of blood chemistry; R26.9 Unspecified abnormalities of gait and mobility; F41.9 Anxiety disorder, unspecified; K21.0 Gastro-esophageal reflux disease with esophagitis; K02.9 Dental caries, unspecified; Z86.718 Personal history of other venous thrombosis and embolism; Z86.711 Personal history of pulmonary embolism; Z87.442 Personal history of urinary calculi; Z90.710 Acquired absence of both cervix and uterus; Z79.899 Other long term (current) drug therapy; Z90.49 Acquired absence of other specified parts of digestive tract; Z85.89 Personal history of malignant neoplasm of other organs and systems
CPT/HCPCS: 83735; 87081; 93005; 99291; G0480; G0481